=== PATIENT | male | born 1930 | race Two or more races ===

== ENCOUNTER 2017-04-25 12:42 | Inpatient (IN) | payer MEDICARE ==
[~2017-04-25] VITALS: Ht 180.3 cm; Wt 74.8 kg
--- NOTE | 2017-04-25 14:58 | NUR ---
GPS RN ADMITTING NOTE: PATIENT 87 Y/O MALE WITH HX BPH BOUGHT FROM [facility] ON 5150 HOLD FOR GD PE HOLD PT RESIDENT AT [facility] HE LEFT BECAUSE HE HATE IT,MT STATED THAT PRESIDENT SINCERE PHONE HIM AND ASKED HIM TO FLY TO [facility]. ADMITTED TO [facility] GPS UPONE F/F EVALUATION PATIENT DELUSIONAL APPEAR DISHEVELED UNKEPT,DISORGANIZED A/O X2 COOPERATIVE, DR GREENBERG SEEN AND EXAMINE PT WITH STANDING ORDERS, BELONGING AND VALUABLES CHECKED AND VALUABLES PLACED IN THE SAFE,WILL CONTINUE MONITORING FOR SAFETY AND BEHAVIOR Q 15 MIN.
[2017-04-25] MEDS ORDERED: NITR0.4T6 SL (15:03)
[2017-04-25] MEDS ORDERED: FINA5TAB3 PO (15:03)
[2017-04-25] MEDS ORDERED: ASPI81TA2 PO (15:03)
[2017-04-25] MEDS ORDERED: ALFU10TA PO (15:03)
[2017-04-25 16:00] VITALS: BP 152/66
[2017-04-25 16:05] VITALS: BP 152/66
[2017-04-25 20:42] VITALS: BP 166/84
--- NOTE | 2017-04-26 00:20 | NUR ---
GPS RN NOTE: PATIENT WOKE WITH CONFUSION, LOUD AND AGITATION. REDIRECTED THE PATIENT. PATIENT WENT BACK TO SLEEP. WILL CONTINUE TO MONITOR [id number] FOR SAFETY
--- NOTE | 2017-04-26 00:45 | NUR ---
GPS RN NOTE: PATIENT UNDRESSED HIMSELF WHILE PLAYING HIS SEXUAL ORGAN. PRIVACY GIVEN. WILL CONTINUE TO MONITOR [id number] FOR SAFETY
--- NOTE | 2017-04-26 01:00 | NUR ---
GPS RN NOTE: PATIENT APPEARED CALM, QUIET, UNPREDICTABLE, EASILY AGITATED. NO SOB, NO ACUTE DISTRESS, BREATHING EVEN AND UNLABORED, NO S/S OF PAIN AND DISCOMFORT, WILL CONTINUE TO MONITOR [id number] FOR SAFETY
[2017-04-26 08:00] VITALS: BP 156/93
[2017-04-26 12:29] LABS: ALANINE AMINOTRANSFERASE 22 U/L (12-78); ALBUMIN 2.7 g/dL (3.4-5.0); ALKALINE PHOSPHATASE 87 U/L (46-116); ASPARTATE AMINOTRANSFERASE 16 U/L (15-37); BILIRUBIN,TOTAL 0.5 mg/dL (0.2-1.0); CALCIUM, SERUM 7.9 mg/dL (8.5-10.1); CARBON DIOXIDE 30 mmol/L (21-32); CHLORIDE 108 mmol/L (98-107); CREATININE 0.8 mg/dL (0.6-1.3); GLUCOSE 97 mg/dL (74-106); POTASSIUM 3.9 mmol/L (3.5-5.1); SODIUM SERUM 144 mmol/L (136-145); TOTAL PROTEIN, SERUM 5.7 g/dL (6.4-8.2); UREA NITROGEN, BLOOD 19 mg/dL (7-18)
[2017-04-26 16:00] VITALS: BP 156/83
--- NOTE | 2017-04-26 17:17 | NUR ---
[id number]: NOTIFIED PERSONNEL RESEARCH SCIENTIST VANGIE BROWN ABOUT LAB RESULTS ON 04/26/17: EGCZPILL=445, BUN= 19, CALCIUM= 79, TOTAL PROTEIN= 5.7, ALBUMIN=2.7. PERSONNEL RESEARCH SCIENTIST VANGIE BROWN ORDERED BOOST VANILLA BID.
[2017-04-26 20:13] VITALS: BP 155/91
[2017-04-27 08:16] VITALS: BP 133/72
[2017-04-27 16:10] VITALS: BP 138/73
--- NOTE | 2017-04-27 16:41 | NUR ---
Discharge Note: Per patient, he resides at a nursing home facility [address] [address]. No emergency contact name was provided. Patient may need placement. transit worker will help form a safe and proper discharge.
[2017-04-27 20:36] VITALS: BP 129/77
[2017-04-28 08:00] VITALS: BP 154/81
[2017-04-28 16:00] VITALS: BP 141/70
--- NOTE | 2017-04-28 19:41 | NUR ---
GPS/RN NOTE: PATIENT LYING IN BED, NO APPARENT DISTRESS NOTED. CALM, QUIET, COOPERATIVE.
[2017-04-28 20:00] VITALS: BP 131/79
--- NOTE | 2017-04-29 02:44 | NUR ---
GPS/RN NOTE: PATIENT AWAKE, UNABLE TO SLEEP, TEMAZEPAM 7.5 MG PO GIVEN.
[2017-04-29 08:28] VITALS: BP 151/85
[2017-04-29 16:00] VITALS: BP 139/80
[2017-04-29 20:00] VITALS: BP 149/80
[2017-04-30 08:00] VITALS: BP 143/76
[2017-04-30 08:52] LABS: CHOLESTEROL 133 mg/dL (<200); HDL CHOLESTEROL 42 mg/dL (40-60); LDL 79 mg/dL (0-99); TRIGLYCERIDES 59 mg/dL (30-150)
[2017-04-30 16:09] VITALS: BP 106/60
[2017-04-30 20:00] VITALS: BP 145/83
[2017-05-01 08:00] VITALS: BP 146/78
[2017-05-01 16:00] VITALS: BP 136/76
[2017-05-01 20:11] VITALS: BP 137/69
[2017-05-02 08:00] VITALS: BP 142/59
[2017-05-02 16:00] VITALS: BP 136/60
[2017-05-02 20:03] VITALS: BP 142/87
[2017-05-03 08:00] VITALS: BP 138/91
--- NOTE | 2017-05-03 08:25 | NUR ---
[id number]: GAVE ATIVAN 0.5 MG PO DUE TO SEVERE ANXIETY UPON PT REQUEST AND WILL CONTINUE TO MONITOR FOR EFFECTIVENESS OF MEDICATION
--- NOTE | 2017-05-03 09:56 | NUR ---
[id number]: GAVE TYLENOL 650 MG PO DUE TO GENERALIZED PAIN 01/29 UPON PT REQUEST AND WILL CONTINUE TO MONITOR FOR EFFECTIVENESS OF MEDICATION.
--- NOTE | 2017-05-03 09:57 | NUR ---
[id number]: GAVE TYLENOL 650 MG PO DUE TO GENERALIZED PAIN 5/10 UPON PT REQUEST AND WILL CONTINUE TO MONITOR FOR EFFECTIVENESS OF MEDICATION
--- NOTE | 2017-05-03 15:39 | NUR ---
telephone lineworker spoke to Cindy ([phone]) from [facility]. Cindy stated that patient lives in low income government housing [facility]. Cindy stated that patient has been at risk of losing his housing and but stated that he still has his housing available. telephone lineworker will inform Cindy when patient is discharged back home.
[2017-05-03 16:00] VITALS: BP 147/60
[2017-05-03 19:58] VITALS: BP 151/81
[2017-05-04 08:00] VITALS: BP 144/69
[2017-05-04 16:00] VITALS: BP 141/81
--- NOTE | 2017-05-04 19:30 | NUR ---
GPS RN NOTE, RECEIVED PATIENT AWAKE AND IN BED, NO S/S OR COMPLAINTS OF PAIN AT THIS TIME. PATIENT IS DISPLAYING NO S/S OF APPARENT DISTRESS AT THIS TIME. PATIENT BREATHING IS UNLABORED WITH EQUAL RISE AND FALL OF THE CHEST. PATIENT IS ALERT AND ORIENTED X 3 ON ROOM AIR WITH A SPO2 99%. PATIENT COMPLAINT WITH MEDICATION, ANXIOUS, COOPERATIVE AT TIMES, GUARDED, SUSPICIOUS, AND NEEDS REORIENTATION. PATIENT DENIES SUICIDE AND HOMICIDAL IDEATIONS AT THIS TIME. PATIENT ASSISTED WITH TURNING AND REPOSITIONING Q2HR AND PRN FOR COMFORT AND CIRCULATION. PATIENT HAS NO NEEDS AT THIS TIME. PATIENT EDUCATED ON THE USE OF THE CALL JANSEN. PATIENT BED SIDE RAILS UP X2 FOR SAFETY, BED IS LOCKED AND LOW WILL CONTINUE TO MONITOR AND MAINTAIN SAFETY.
[2017-05-04 20:20] VITALS: BP 151/83
[2017-05-05 08:00] VITALS: BP 139/79
[2017-05-05 16:00] VITALS: BP 131/71
[2017-05-05 20:00] VITALS: BP 142/81
[2017-05-06 06:36] LABS: CALCIUM, SERUM 7.9 mg/dL (8.5-10.1); CARBON DIOXIDE 28 mmol/L (21-32); CHLORIDE 107 mmol/L (98-107); CREATININE 0.8 mg/dL (0.6-1.3); GLUCOSE 89 mg/dL (74-106); SODIUM SERUM 141 mmol/L (136-145); UREA NITROGEN, BLOOD 25 mg/dL (7-18)
[2017-05-06 07:15] LABS: BASOPHILS % (AUTO) 0.2 % (0.0-2.0); EOSINOPHILS # (AUTO) 0.5 /CMM (0.0-0.7); EOSINOPHILS % (AUTO) 6.7 % (0.0-6.0); HEMATOCRIT 36 % (39-51); HEMOGLOBIN 11.9 g/dL (13.5-17.5); LYMPHOCYTES # (AUTO) 1.1 /CMM (0.8-4.8); LYMPHOCYTES % (AUTO) 15.8 % (20.0-44.0); MEAN CORPUSCULAR HEMOGLOBIN 29 PG (26.0-33.0); MEAN CORPUSCULAR HGB CONC 33 g/dl (31.0-36.0); MEAN CORPUSCULAR VOLUME 86 fL (80-96); MONOCYTES # (AUTO) 0.7 /CMM (0.1-1.30); NEUTROPHILS # (AUTO) 4.7 /CMM (1.8-8.9); NEUTROPHILS % (AUTO) 67.3 % (43.0-81.0); PLATELET COUNT (AUTO) 177 /CMM (150-450); RDW COEFFICIENT OF VARIATION 14.1 (11.5-15.0); RED BLOOD CELL COUNT(AUTO) 4.14 MIL/uL (4.5-6.0); WHITE BLOOD COUNT (AUTO) 7.1 K/uL (4.3-11.0)
[2017-05-06 08:00] VITALS: BP 138/84
[2017-05-06 16:00] VITALS: BP 137/82
[2017-05-06 20:00] VITALS: BP 156/83
[2017-05-07 07:19] LABS: BASOPHILS % (AUTO) 0.4 % (0.0-2.0); EOSINOPHILS # (AUTO) 0.5 /CMM (0.0-0.7); EOSINOPHILS % (AUTO) 7.2 % (0.0-6.0); HEMATOCRIT 37 % (39-51); HEMOGLOBIN 12.2 g/dL (13.5-17.5); LYMPHOCYTES # (AUTO) 1.3 /CMM (0.8-4.8); LYMPHOCYTES % (AUTO) 19.8 % (20.0-44.0); MEAN CORPUSCULAR HEMOGLOBIN 28 PG (26.0-33.0); MEAN CORPUSCULAR HGB CONC 33 g/dl (31.0-36.0); MEAN CORPUSCULAR VOLUME 87 fL (80-96); MONOCYTES # (AUTO) 0.7 /CMM (0.1-1.30); MONOCYTES % (AUTO) 11.8 % (2.0-12.0); NEUTROPHILS # (AUTO) 3.9 /CMM (1.8-8.9); NEUTROPHILS % (AUTO) 60.8 % (43.0-81.0); PLATELET COUNT (AUTO) 177 /CMM (150-450); RDW COEFFICIENT OF VARIATION 14.4 (11.5-15.0); RED BLOOD CELL COUNT(AUTO) 4.31 MIL/uL (4.5-6.0); WHITE BLOOD COUNT (AUTO) 6.4 K/uL (4.3-11.0)
[2017-05-07 07:20] LABS: VALPROIC ACID 51 ug/mL (50-100)
[2017-05-07 07:31] LABS: ALANINE AMINOTRANSFERASE 16 U/L (12-78); ALBUMIN 2.7 g/dL (3.4-5.0); ALKALINE PHOSPHATASE 82 U/L (46-116); ASPARTATE AMINOTRANSFERASE 13 U/L (15-37); BILIRUBIN,TOTAL 0.4 mg/dL (0.2-1.0); CALCIUM, SERUM 7.9 mg/dL (8.5-10.1); CARBON DIOXIDE 29 mmol/L (21-32); CHLORIDE 108 mmol/L (98-107); CREATININE 0.8 mg/dL (0.6-1.3); GLUCOSE 84 mg/dL (74-106); POTASSIUM 4.3 mmol/L (3.5-5.1); SODIUM SERUM 143 mmol/L (136-145); TOTAL PROTEIN, SERUM 5.8 g/dL (6.4-8.2); UREA NITROGEN, BLOOD 22 mg/dL (7-18)
[2017-05-07 08:00] VITALS: BP 142/85
[2017-05-07 15:47] VITALS: BP 130/78
[2017-05-07 20:00] VITALS: BP 133/79
[2017-05-08 08:11] VITALS: BP 153/83
[2017-05-08 16:00] VITALS: BP 138/70
[2017-05-08 19:36] VITALS: BP 156/69
[2017-05-09 08:00] VITALS: BP 143/64
--- NOTE | 2017-05-09 13:45 | NUR ---
waterside worker faxed initial review packet to [facility] [id number] [facility] [place] [address] ( / ). waterside worker will follow-up.
[2017-05-09 16:00] VITALS: BP 147/88
[2017-05-09 20:09] VITALS: BP 148/70
[2017-05-10 07:15] LABS: BASOPHILS % (AUTO) 0.3 % (0.0-2.0); EOSINOPHILS # (AUTO) 0.4 /CMM (0.0-0.7); HEMATOCRIT 38 % (39-51); HEMOGLOBIN 12.7 g/dL (13.5-17.5); LYMPHOCYTES # (AUTO) 1.3 /CMM (0.8-4.8); LYMPHOCYTES % (AUTO) 18.4 % (20.0-44.0); MEAN CORPUSCULAR HEMOGLOBIN 29 PG (26.0-33.0); MEAN CORPUSCULAR HGB CONC 33 g/dl (31.0-36.0); MEAN CORPUSCULAR VOLUME 86 fL (80-96); MONOCYTES # (AUTO) 0.7 /CMM (0.1-1.30); MONOCYTES % (AUTO) 10.3 % (2.0-12.0); NEUTROPHILS # (AUTO) 4.7 /CMM (1.8-8.9); PLATELET COUNT (AUTO) 178 /CMM (150-450); RED BLOOD CELL COUNT(AUTO) 4.44 MIL/uL (4.5-6.0); WHITE BLOOD COUNT (AUTO) 7.1 K/uL (4.3-11.0)
[2017-05-10 07:42] LABS: VALPROIC ACID 41 ug/mL (50-100)
[2017-05-10 07:55] LABS: ALANINE AMINOTRANSFERASE 14 U/L (12-78); ALBUMIN 2.8 g/dL (3.4-5.0); ALKALINE PHOSPHATASE 86 U/L (46-116); ASPARTATE AMINOTRANSFERASE 16 U/L (15-37); BILIRUBIN,TOTAL 0.4 mg/dL (0.2-1.0); CALCIUM, SERUM 8.3 mg/dL (8.5-10.1); CARBON DIOXIDE 27 mmol/L (21-32); CHLORIDE 106 mmol/L (98-107); CREATININE 0.8 mg/dL (0.6-1.3); GLUCOSE 85 mg/dL (74-106); POTASSIUM 4.3 mmol/L (3.5-5.1); SODIUM SERUM 141 mmol/L (136-145); TOTAL PROTEIN, SERUM 5.9 g/dL (6.4-8.2); UREA NITROGEN, BLOOD 21 mg/dL (7-18)
[2017-05-10 08:00] VITALS: BP 143/80
--- NOTE | 2017-05-10 13:46 | NUR ---
Per Antoine, at the facility, [address] [place] [address] ( / ) has accepted the patient. brewery cellar worker will follow-up.
[2017-05-10 16:08] VITALS: BP 140/76
--- NOTE | 2017-05-10 16:10 | NUR ---
turn out worker attempted to contact Cindy ([phone]) from [facility] following patient's case, to inform her that patient is being discharged to [address] [address] ( / ). However, Cindy was unavailable, outreach and education social worker left Cindy a detailed message with her contact information. turn out worker will follow-up.
[2017-05-10 20:12] VITALS: BP 150/87
[2017-05-11 08:01] VITALS: BP 143/89
--- NOTE | 2017-05-11 12:30 | NUR ---
GPS TUBE MAKER NOTE: PATIENT DISCHARGE TO [place] [id number] [place] [address] ( / ).IN STABLE CONDITION NO S/S DISTRESS NOTED PATIENT COMPLIANT WITH MEDICATIONS DENIES SI/HI , VSS STABLE , DR YAN NOTIFIED WITH DC ORDERS, ALL BELONGINGS AND CONTRABAND CHECKED , PT REFUSED SKIN ASSESSMENT. REPORT GIVEN TO RN IN THE SNF
--- NOTE | 2017-05-11 15:37 | NUR ---
Discharge Note: Patient was discharged to [facility] [address] [facility] [place] [address] ( / ). via med response. Patient did not have family to notify. Patient's mood and affect were appropriate upon discharge. Patient denied suicidal and homicidal ideations. Patient will follow-up with Dr. Frias at the facility. STEPHANIE informed Cindy ([phone]) APS social worker psychiatric from [facility] of patient's discharge. Facilitated info to IDT team who are in agreement with discharge arrangement. The multidisciplinary exitcare form was done, printed, signed, and given to the patient.
== END 2017-05-11 12:15 | DRG 885 ==
LOC: GPS 14:30
PROVIDERS: ADMIT Psychiatry & Neurology Psychosomatic Medicine; ATTEND Psychiatry & Neurology Psychosomatic Medicine
DX: F29 Unspecified psychosis not due to a substance or known physiological condition (principal); F01.50 Vascular dementia, unspecified severity, without behavioral disturbance, psychotic disturbance, mood disturbance, and anxiety; N17.0 Acute kidney failure with tubular necrosis; E44.0 Moderate protein-calorie malnutrition; D64.9 Anemia, unspecified; I10 Essential (primary) hypertension; N40.0 Benign prostatic hyperplasia without lower urinary tract symptoms; Z86.73 Personal history of transient ischemic attack (TIA), and cerebral infarction without residual deficits; K59.00 Constipation, unspecified; Z73.6 Limitation of activities due to disability; G43.909 Migraine, unspecified, not intractable, without status migrainosus; D63.8 Anemia in other chronic diseases classified elsewhere
CPT/HCPCS: 36415; 80048-TC; 80053-TC; 80061-TC; 80164-TC; 82962-TC; 85025-TC; 87081-TC; Z7610

== ENCOUNTER 2017-06-18 16:45 | Emergency (ER) | payer MEDICARE ==
[~2017-06-18] VITALS: Ht 167.6 cm; Wt 68.0 kg
[~2017-06-18 16:45] MED LIST: ALFU10TA PO; ASPI81TA2 PO; FINA5TAB3 PO; NITR0.4T6 SL
--- NOTE | 2017-06-18 16:54 | NUR ---
PT BIBRA TO ER BED 10. PER REPORT, POSSIBLE FALL FROM BED AND C/O LOWER BACK AND L HIP PAIN. UNWITNESSED. PER PARAMEDICS, PT WAS AMBULATORY AT THE SCENE. PLACED ON MONITOR. AWAITING MD MORE.
--- NOTE | 2017-06-18 17:03 | NUR ---
DR SÁNCHEZ AT BEDSIDE FOR EVAL.
--- NOTE | 2017-06-18 17:15 | NUR ---
IV INSERTED LAC 18G. BLOOD DRAWN AND SENT TO LAB.
[2017-06-18] MEDS ORDERED: ONDANSETRON HCL/PF 4 MG/2 ML VIAL ONE (17:20)
[2017-06-18] MEDS ORDERED: HYDROMORPHONE 1 MG/1 ML DISP.SYRIN ONE (17:20)
[2017-06-18 17:26] LABS: BASOPHILS % (AUTO) 0.4 % (0.0-2.0); EOSINOPHILS # (AUTO) 0.2 /CMM (0.0-0.7); HEMATOCRIT 34 % (39-51); HEMOGLOBIN 11.4 g/dL (13.5-17.5); LYMPHOCYTES # (AUTO) 1.2 /CMM (0.8-4.8); LYMPHOCYTES % (AUTO) 17.4 % (20.0-44.0); MEAN CORPUSCULAR HEMOGLOBIN 29 PG (26.0-33.0); MEAN CORPUSCULAR HGB CONC 34 g/dl (31.0-36.0); MEAN CORPUSCULAR VOLUME 85 fL (80-96); MONOCYTES # (AUTO) 0.9 /CMM (0.1-1.30); MONOCYTES % (AUTO) 12.9 % (2.0-12.0); NEUTROPHILS # (AUTO) 4.5 /CMM (1.8-8.9); NEUTROPHILS % (AUTO) 66.3 % (43.0-81.0); PLATELET COUNT (AUTO) 130 /CMM (150-450); RDW COEFFICIENT OF VARIATION 15.3 (11.5-15.0); RED BLOOD CELL COUNT(AUTO) 4.01 MIL/uL (4.5-6.0); WHITE BLOOD COUNT (AUTO) 6.8 K/uL (4.3-11.0)
[2017-06-18 17:29] LABS: CALCIUM, SERUM 7.7 mg/dL (8.5-10.1); CARBON DIOXIDE 30 mmol/L (21-32); CHLORIDE 106 mmol/L (98-107); CREATININE 0.9 mg/dL (0.6-1.3); GLUCOSE 101 mg/dL (74-106); POTASSIUM 4.1 mmol/L (3.5-5.1); SODIUM SERUM 139 mmol/L (136-145); UREA NITROGEN, BLOOD 27 mg/dL (7-18)
[2017-06-18] MEDS ORDERED: HYDROMORPHONE 1 MG/1 ML DISP.SYRIN IV ONE (17:30)
[2017-06-18] MEDS ORDERED: ONDANSETRON HCL/PF - ER 4 MG/2 ML VIAL IV ONE (17:30)
[2017-06-18 17:38] LABS: INR 1.2 (0.87-1.13); PROTHROMBIN TIME 12.5 SECS (9.5-12.7)
--- NOTE | 2017-06-18 17:56 | NUR ---
PT TO RADIOLOGY FOR L HIP CT SCAN [facility]IA [facility].
[2017-06-18] MEDS ORDERED: LORA0.5T PO (18:03)
[2017-06-18] MEDS ORDERED: DOCU-25 PO (18:03)
[2017-06-18] MEDS ORDERED: MAG30ORA PO (18:03)
[2017-06-18] MEDS ORDERED: FURO-145 PO (18:03)
[2017-06-18] MEDS ORDERED: FAMO20TA8 PO (18:03)
[2017-06-18] MEDS ORDERED: AMIN30LI4 PO (18:03)
[2017-06-18] MEDS ORDERED: TERA5CAP4 PO (18:03)
[2017-06-18] MEDS ORDERED: SENN-18 PO (18:03)
[2017-06-18] MEDS ORDERED: DIVA500T2 PO (18:03)
[2017-06-18] MEDS ORDERED: CALC-108 PO (18:03)
[2017-06-18] MEDS ORDERED: QUET25TA PO ×2 (18:07)
[2017-06-18] MEDS ORDERED: ACET-868 PO (18:07)
[2017-06-18] MEDS ORDERED: MAGN400O6 PO (18:07)
[2017-06-18] MEDS ORDERED: TEMA7.5C12 PO (18:07)
--- NOTE | 2017-06-18 21:10 | NUR ---
CALLED [facility] FOR TRANSPORT BACK TO [facility], ETA 30 MIN, TRIP #[id number]
--- NOTE | 2017-06-18 21:39 | NUR ---
ASSUMED D/C CARE ONLY ON BEHALF OF PRIMARY NURSE KATINA. REPORT GIVEN TO EMT STAFF. Patient discharged to home in stable condition. Written and verbal after care instructions given. Patient verbalizes understanding of instruction. IV removed. Catheter intact and site benign. Pressure and 4x4 applied to site. No bleeding noted.
[2017-06-18 21:41] VITALS: BP 147/79
[2017-07-15] MEDS ORDERED: NAPR500T PO (14:15)
== END 2017-06-18 21:42 | disposition home or self-care (01) ==
LOC: ER 16:46
DX: M25.552 Pain in left hip (principal); F03.90 Unspecified dementia, unspecified severity, without behavioral disturbance, psychotic disturbance, mood disturbance, and anxiety; I10 Essential (primary) hypertension; R79.1 Abnormal coagulation profile; Z79.82 Long term (current) use of aspirin; W06.XXXA Fall from bed, initial encounter; Y93.89 Activity, other specified; Y92.89 Other specified places as the place of occurrence of the external cause; Y99.9 Unspecified external cause status
CPT/HCPCS: 36415; 71010; 73503; 73700 ×2; 80048; 85025; 85730; 93005; 96374; 96375; 99285; A4606; J1170; J2405 ×2; 73502; Z7610

== ENCOUNTER 2017-07-15 13:14 | Inpatient (IN) | payer MEDICARE, MEDICAID ==
[2017-07-15] VITALS (23 sets, daily range): BP systolic 70–137; BP diastolic 46–79
[~2017-07-15] VITALS: Ht 172.7 cm; Wt 69.4 kg
[~2017-07-15 13:14] MED LIST changes: +ACET-868 PO; -ALFU10TA PO; +AMIN30LI4 PO; +ASPI-1169 PO; -ASPI81TA2 PO; +CALC-261 PO; +DIVA500T2 PO; +DOCU-141 PO; +FAMO20TA8 PO; +FURO-145 PO; +LORA0.5T PO; +MAG30ORA PO; +MAGN400O6 PO; +NITR0.4T48 SL; -NITR0.4T6 SL; +QUET25TA PO; +SENN-18 PO; +TEMA7.5C12 PO; +TERA5CAP4 PO
--- NOTE | 2017-07-15 13:20 | NUR ---
BBRA 78 FROM [facility] FOR SOB SATING 80% ON RA. MORE ALTERED THAN BASELINE DEMENTIA BS IN FIELD 174. A/OX 1. BREATHING TACHYPNIC, PLACED ON 5L VIA NC, SATURATION INCREASED TO 93%. VITALS STABLE. SAFETY AND COMFORT MEASURES IN PLACE. AWAITING MD ORDERS.
--- NOTE | 2017-07-15 13:30 | NUR ---
BUSINESS TRANSFORMATION ANALYST AT BEDSIDE FOR BLOOD DRAW.
--- NOTE | 2017-07-15 13:42 | NUR ---
DIAMOND EXPERT AT BEDSIDE.
--- NOTE | 2017-07-15 13:45 | NUR ---
PATIENT PLACED ON NON REBREATHER MASK, SATURATION DROPPING TO 87% ON 5L OXYGEN. O2 SATURATION 97% ON NON REBREATHER, WILL CONTINUE TO MONITOR.
[2017-07-15 13:57] LABS: BASOPHILS % (AUTO) 0.1 % (0.0-2.0); EOSINOPHILS % (AUTO) 0.1 % (0.0-6.0); HEMATOCRIT 34 % (39-51); LYMPHOCYTES # (AUTO) 0.8 /CMM (0.8-4.8); LYMPHOCYTES % (AUTO) 7.3 % (20.0-44.0); MEAN CORPUSCULAR HEMOGLOBIN 28 PG (26.0-33.0); MEAN CORPUSCULAR HGB CONC 32 g/dl (31.0-36.0); MEAN CORPUSCULAR VOLUME 88 fL (80-96); MONOCYTES % (AUTO) 8.7 % (2.0-12.0); NEUTROPHILS # (AUTO) 9.5 /CMM (1.8-8.9); NEUTROPHILS % (AUTO) 83.8 % (43.0-81.0); PLATELET COUNT (AUTO) 116 /CMM (150-450); RDW COEFFICIENT OF VARIATION 16.3 (11.5-15.0); RED BLOOD CELL COUNT(AUTO) 3.88 MIL/uL (4.5-6.0); WHITE BLOOD COUNT (AUTO) 11.4 K/uL (4.3-11.0)
[2017-07-15] MEDS ORDERED: IV NS 0.9% 500 ML BAG IV ONE (14:00)
[2017-07-15 14:11] LABS: CALCIUM, SERUM 8.9 mg/dL (8.5-10.1); CARBON DIOXIDE 27 mmol/L (21-32); CHLORIDE 106 mmol/L (98-107); CREATININE 1.3 mg/dL (0.6-1.3); GLUCOSE 128 mg/dL (74-106); POTASSIUM 3.6 mmol/L (3.5-5.1); SODIUM SERUM 144 mmol/L (136-145); UREA NITROGEN, BLOOD 50 mg/dL (7-18)
[2017-07-15 14:14] LABS: ABG BASE EXCESS 0.5 mmol/L; ABG OXYGEN SATURATION 98.3 % (92.0-98.5); ABG PH 7.464 (7.350-7.450); ABG PO2 139.1 mmHg (75.0-100.0); AaDO2 395.6 mmHg; COHb 0.5 % (0.5-1.5); MetHb 0.6 % (0.0-1.5); O2Hb 97.2 % (94.0-97.0); SITE, ABG Right Radial; VENT MODE, BG NON-REBREATHER MASK
[2017-07-15] MEDS ORDERED: CALC500T52 PO (14:15)
[2017-07-15] MEDS ORDERED: NAPR-1164 PO (14:15)
[2017-07-15] MEDS ORDERED: TRAM50TA2 PO (14:15)
[2017-07-15 14:18] LABS: INR 1.32 (0.87-1.13); PROTHROMBIN TIME 13.8 SECS (9.5-12.7)
[2017-07-15 14:23] LABS: ALANINE AMINOTRANSFERASE 17 U/L (12-78); ALBUMIN 2.3 g/dL (3.4-5.0); ALKALINE PHOSPHATASE 81 U/L (46-116); ASPARTATE AMINOTRANSFERASE 21 U/L (15-37); B-TYPE NATRIURETIC PEPTIDE 6167 PG/ML (0-125); BILIRUBIN,DIRECT 0.4 mg/dL (0.0-0.2); BILIRUBIN,TOTAL 0.8 mg/dL (0.2-1.0); TOTAL PROTEIN, SERUM 6.5 g/dL (6.4-8.2)
[2017-07-15 14:25] LABS: TROPONIN I 1.546 ng/mL (0.00-0.056)
[2017-07-15] MEDS ORDERED: IV NS 0.9% 1,000 ML BAG IV ONE (14:30)
[2017-07-15] MEDS ORDERED: PIPERACILLIN /TAZOBACTAM 3.375 G in IV D5W 50 ML IV ONE (14:30)
[2017-07-15] MEDS ORDERED: VANCOMYCIN 1 GM in IV D5W 250 ML IV ONE ×2 (14:30→15:30)
--- NOTE | 2017-07-15 14:46 | NUR ---
PT UNABLE TO STOP MOVING & COMBATIVE. DR. VINCENT IS AWARE.
--- NOTE | 2017-07-15 14:54 | NUR ---
PER DR. VINCENT, ORDER 1700ML MORE NS, IN ADDITION TO 500ML ALREADY RECEIVED. DO NOT GIVE 2200ML INITALLY ORDERED.
[2017-07-15 14:57] LABS: APPEARANCE,URINE Slightly Cloudy (CLEAR); BILIRUBIN,URINE SMALL (NEGATIVE); BLOOD, URINE Moderate Ery/uL (NEGATIVE); COLOR,URINE Amber (YELLOW); KETONES,URINE Trace (NEGATIVE); LEUKOCYTE ESTERASE ,URINE Negative (NEGATIVE); NITRITE, URINE Negative (NEGATIVE); PH,URINE 5.5 (5.0-8.0); PROTEIN,URINE 30 mg/dl (NEGATIVE); UGLUCOSE Negative (NEGATIVE)
[2017-07-15] MEDS ORDERED: ASPIRIN 325 MG TABLET PO ONE (15:00)
--- NOTE | 2017-07-15 15:11 | NUR ---
DR ADONIS JOHNSON PAGED FOR DR VINCENT
--- NOTE | 2017-07-15 15:15 | NUR ---
ICU/RN: DR. IRBY AT BEDSIDE. BP LOW. 500 ML BOLUS GIVEN. WILL START LEVO IF BP REMAINS TO BE <90. ORDERS FOR CENTRAL LINE RECEIVED, NO FAMILY, EMERGENCY CONSENT SIGNED. ER MD WILL BE UP TO INSERT TIME.
[2017-07-15] MEDS ORDERED: ASPIRIN 300 MG/SUPP.RECT RC ONE ×2 (15:17→16:00)
--- NOTE | 2017-07-15 15:25 | NUR ---
PER DR. VINCENT, GIVE ASPIRIN 300MG RECTAL SUPP INSTEAD OF 325 MG TAB ORALLY.
--- NOTE | 2017-07-15 15:29 | NUR ---
[facility] CALLED, SPOKE WITH FLORI GLASS, IN CHARGE OF PATIENT, FULL CODE ACCORDING TO FLORI GLASS
[2017-07-15] MEDS ORDERED: MEROPENEM 1 G in IV NS 0.9% 100 ML IV SCH (15:30)
[2017-07-15] MEDS ORDERED: ACETAMINOPHEN 650 MG/SUPP.RECT RC PRN (15:30)
[2017-07-15] MEDS ORDERED: ZOLPIDEM TARTRATE 5 MG TABLET PO PRN (15:30)
[2017-07-15] MEDS ORDERED: ONDANSETRON HCL/PF 4 MG/2 ML VIAL IVP PRN (15:30)
--- NOTE | 2017-07-15 15:35 | NUR ---
RT AT BEDSIDE FOR BIPAP, ATTEMPTED TO CONNECT, PATIENT NOT TOLERATING. MD INFORMED.
[2017-07-15] MEDS ORDERED: PROPOFOL 100 ML IV ONE (15:37)
--- NOTE | 2017-07-15 15:40 | NUR ---
AT BEDSIDE FOR INTUBATION.
--- NOTE | 2017-07-15 15:44 | NUR ---
PATIENT INTUBATED, BREATHING LABORED, USED OF ACCESSORY MUSCLES. MD AT BEDSIDE. ETOMIDATE 20 / SUCC 120 GIVEN PER MD ORDERS. 7.5 ET TUBE, 24 CM AT LIPLINE POSITIVE CO2 COLOR CHANGE.
[2017-07-15 15:45] LABS: BACTERIA,URINE Moderate /HPF (None Seen); SQUAMOUS EPITHELIAL CELL,UR Moderate /HPF (None Seen); WBC,URINE 0-2 /HPF (0-3)
[2017-07-15] MEDS ORDERED: FEE PK DOSING 1 MIN EA MC ONE (15:49)
[2017-07-15] MEDS ORDERED: SUCCINYLCHOLINE CHLORIDE 20 MG/ML VIAL IV ONE ×2 (16:00→16:21)
[2017-07-15] MEDS ORDERED: ETOMIDATE 2 MG/ML VIAL IV ONE ×2 (16:00→16:21)
[2017-07-15] MEDS ORDERED: PROPOFOL 100 ML IV PRN (16:00)
--- NOTE | 2017-07-15 16:05 | NUR ---
TRANSFERRED TO ICU [address] DONE PER DR VINCENT'S ORDER MONITORED WITH IVETT GLASS AND EMT.
--- NOTE | 2017-07-15 16:23 | NUR ---
RT NOTE: LATE ENTRY-ATTEMPTED TO PLACE PATIENT ON BIPAP DUE TO INCREASING WOB BUT WAS COMBATIVE AND DID NOT TOLERATE. PLACED BACK ON NON-REBREATHER WITH WL31=307%. ASSISTED WITH INTUBATING PATIENT. USED A 7.5 ETT THAT WAS SECURED AT 24 CM MID LIP LINE(ANCHOR FAST IN PLACE). BILATERAL B/S NOTED. PATIENT PLACED ON VENT PER MD ORDER. ALARMS SET AND AUDIBLE. SUCTIONED COPIOUS AMOUNT OF THICK [place] SECRETIONS. PATIENT TRANSPORTED TO CT THEN ICU. VENT PLUGGED INTO RED OUTLET. AMBU BAG AT [facility].
--- NOTE | 2017-07-15 16:30 | NUR ---
ICU/RN: PT TRANSFERRED FROM ER TO ROOM 252. PT INTUBATED, ETT 7.5, 24 CM AT THE LIP. ON VENT SETTINGS ORDERED BY MD, NO ACUTE DISTRESS NOTED AT THIS TIME. PT SEDATED ON 30 MCG OF DIPRIVAN, STILL AGITATED AND FIGHTING VENT. WILL TITRATE PER PROTOCOL. PT ON TELE, SINUS TACHYCARDIA. PIV PATENT AND INTACT, NO S/S OF INFECTION OR INFILTRATION NOTED. HEAD CT DONE, RESULTS PENDING. ALL NEEDS WILL BE MET, SAFETY MEASURES TAKEN, BED IN LOW POSITION, SIDE RIALS UP, CALL LIGHT WITHIN REACH. PT FROM [facility], NO FAMILY, NO CONSERVATOR. FULL CODE. CARLTON PLACED PER MD. SOFT BILATERAL WRIST RESTRAINTS FOR SAFETY. ORDERS PLACED. ALL NEEDS MET, SAFETY MEASURES TAKEN, BED IN LOW POSITION, SIDE RAILS UP, CALL LIGHT WITHIN REACH.
[2017-07-15] MEDS: PANTOPRAZOLE 40 MG VIAL IV SCH (17:04)
[2017-07-15] MEDS: IV NS 0.9% 1,000 ML IV PRN (17:05)
[2017-07-15] MEDS: DEXAMETHASONE SOD PHOSPHATE 4 MG/ML VIAL IV SCH (17:05)
--- NOTE | 2017-07-15 17:20 | NUR ---
RT PT RECEIVED ORALLY INTUBATED WITH A 7.5 ETT SECURED AT 24CM AT THE LIP LINE. PT IS CURRENTLY SEDATED AT THIS TIME BUT RESPONDS TO STIMULI. VENT ALARMS ARE SET AND AUDIBLE WITH BVM BY BEDSIDE. ROLL FORMER CUFF PRESSURE NOTED. VENT IS PLUGGED INTO RED OUTLET. SX SMALL THICK WHITE/CLEAR SECRETIONS. NO RESPIRATORY DISTRESS NOTED AT THIS TIME, WILL CONTINUE TO MONITOR. Addendum: 07/15/17 at 1755 by JOSE CARLOS LAUREN RT Amended: Links added.
[2017-07-15] MEDS ORDERED: IV NS 0.9% 500 ML IV ONE (17:30)
[2017-07-15] MEDS ORDERED: NOREPINEPHRINE 8 MG in IV D5W 500 ML IV PRN (17:30)
[2017-07-15 17:39] LABS: ABG BASE EXCESS -3.7 mmol/L; ABG PCO2 37.3 mmHg (35.0-45.0); ABG PH 7.371 (7.350-7.450); ABG PO2 146.2 mmHg (75.0-100.0); AaDO2 312.8 mmHg; COHb 0.3 % (0.5-1.5); MetHb 0.8 % (0.0-1.5); O2Hb 96.9 % (94.0-97.0); PEEP,BG 5 cm H2O; SITE, ABG Left Radial; VT, ABG 500 mL
[2017-07-15] MEDS: MEROPENEM 1 G in IV NS 0.9% 100 ML IV SCH (18:42)
--- NOTE | 2017-07-15 19:30 | NUR ---
ICU/RN ENDING NOTES,AM REPORT ENDORSED TO NIGHT NURSE FOR CONTINUATION OF CARE. ALL NEEDS MET, SAFETY MEASURES TAKEN. PT BP STABLE. ON VENT SETTINGS ORDERED BY MD, NO ACUTE DISTRESS NOTED. SINUS ON TELE. PT BATHED, TURNED AND REPOSITIONED. BILATERAL SOFT RESTRAINTS IN PLACE. WILL ENDORSE FOR GABRIEL
[2017-07-15] MEDS: PROPOFOL 100 ML IV PRN (20:10)
--- NOTE | 2017-07-15 20:10 | NUR ---
INTELLIGENCE SENIOR SERGEANT DF PT HYPOTENSIVE AT 83/54. PER REPORT/EMAR PT RECEIVED IV BOLUS UPON ADMISSION AND IN ER. PT HAS STANDBY ORDER FOR LEVOPHED GTT. DIPRIVAN GTT AT 40MCG DECREASED TO 30 MCG BP OF 92/56. PT SEDATED WITHDRAWS TO TACTILE STIMULI, PUPILS PEARLA SLUGGISH TO LIGHT AT 2-3 MM. PT RECEIVED IN BILATERAL SOFT WRIST RESTRAINTS, PT SELF EXTUBATION RISK. PT WITH RHONCHI/DIMINISHED BREATH SOUNDS THROUGHOUT.PT INTUBATED TODAY AT 7.5/24 A LIP LINE 50% FIO2 WITH 0 PEEP. PT NSR ON MONITOR.EPISODIC HYPOTENSION NOTED.WILL START LEVOPHED FOR SUSTAINED HYPOTENSION.EDEMA NON PITTING NOTED TO BLE. PT NPO. PER REPORT UNABLE TO INSERT OGT/NGT. I WILL ATTEMPT TO INSERT OGT/NGT. VSS.NAD NOTED. PT HAS 2 PIV. PER REPORT PT HAS ORDER FOR CENTRAL LINE/PICC LINE. NO ER MD OR PICC LINE RN AVAILABLE AT THIS TIME FOR LINE INSERTION. 2 PIV INTACT WNL.
--- NOTE | 2017-07-15 22:42 | NUR ---
DIRECTOR OF SPECIAL SERVICES DF PT MAINTAINING SBP ABOVE 90, CURRENT BP OF 129/75.MD AWARE PT NOT ON LEVOPHED GTT AT THIS TIME. LEVOPHED PRN FOR SBP BELOW 90.
[2017-07-16] VITALS (39 sets, daily range): BP systolic 95–136; BP diastolic 57–79
[2017-07-16] MEDS: DEXAMETHASONE SOD PHOSPHATE 4 MG/ML VIAL IV SCH ×5 (00:25→23:13)
[2017-07-16] MEDS: PROPOFOL 100 ML IV PRN ×3 (02:32→22:58)
[2017-07-16] MEDS: MEROPENEM 1 G in IV NS 0.9% 100 ML IV SCH ×2 (04:45→15:46)
[2017-07-16 04:53] LABS: EOSINOPHILS % (AUTO) 0.1 % (0.0-6.0); HEMATOCRIT 31 % (39-51); HEMOGLOBIN 10.2 g/dL (13.5-17.5); LYMPHOCYTES # (AUTO) 0.3 /CMM (0.8-4.8); LYMPHOCYTES % (AUTO) 3.4 % (20.0-44.0); MEAN CORPUSCULAR HEMOGLOBIN 29 PG (26.0-33.0); MEAN CORPUSCULAR HGB CONC 33 g/dl (31.0-36.0); MEAN CORPUSCULAR VOLUME 88 fL (80-96); MONOCYTES # (AUTO) 0.3 /CMM (0.1-1.30); MONOCYTES % (AUTO) 3.9 % (2.0-12.0); NEUTROPHILS # (AUTO) 7.8 /CMM (1.8-8.9); NEUTROPHILS % (AUTO) 92.6 % (43.0-81.0); PLATELET COUNT (AUTO) 87 /CMM (150-450); RDW COEFFICIENT OF VARIATION 16.4 (11.5-15.0); RED BLOOD CELL COUNT(AUTO) 3.54 MIL/uL (4.5-6.0); WHITE BLOOD COUNT (AUTO) 8.4 K/uL (4.3-11.0)
[2017-07-16 05:09] LABS: ALANINE AMINOTRANSFERASE 16 U/L (12-78); ALBUMIN 1.6 g/dL (3.4-5.0); ALKALINE PHOSPHATASE 59 U/L (46-116); ASPARTATE AMINOTRANSFERASE 19 U/L (15-37); BILIRUBIN,TOTAL 0.6 mg/dL (0.2-1.0); CALCIUM, SERUM 7.8 mg/dL (8.5-10.1); CARBON DIOXIDE 26 mmol/L (21-32); CHLORIDE 112 mmol/L (98-107); CREATININE 0.9 mg/dL (0.6-1.3); GLUCOSE 123 mg/dL (74-106); POTASSIUM 3.9 mmol/L (3.5-5.1); SODIUM SERUM 145 mmol/L (136-145); TOTAL PROTEIN, SERUM 5.1 g/dL (6.4-8.2); UREA NITROGEN, BLOOD 43 mg/dL (7-18)
[2017-07-16 05:10] LABS: INR 1.23 (0.87-1.13); PROTHROMBIN TIME 12.8 SECS (9.5-12.7)
[2017-07-16 05:21] LABS: TROPONIN I 0.959 ng/mL (0.00-0.056)
--- NOTE | 2017-07-16 05:26 | NUR ---
RAPID EXTRACTOR OPERATOR DF AM TROPONIN OF 0.959 PER PMD CARDIAC CONSULT ORDERED.
[2017-07-16 05:41] LABS: LYMPHOCYTES % (MANUAL) 6 % (16-48); MONOCYTES % (MANUAL) 4 % (0-11.0); NEUTROPHILS % (MANUAL) 90 (42-76)
[2017-07-16] MEDS: IV NS 0.9% 1,000 ML IV PRN ×2 (07:00→18:37)
--- NOTE | 2017-07-16 07:45 | NUR ---
ICU/RN - Initial Notes Received pt in bed, sedated, orally intubated to mechanical ventilator with settings as ordered. No s/s of pain or discomfort. On tele monitor SB 53. IV patent and intact, with IVF infusing well. Sue catheter intact draining urine to gravity. Safety and comfort measures in place. Will continue to monitor pt closely.
--- NOTE | 2017-07-16 08:00 | NUR ---
ICU/RN - Notes Pt appears to be very sedated with bradycardia. Diprivan titrated down accordingly.
[2017-07-16] MEDS: PANTOPRAZOLE 40 MG VIAL IV SCH (08:46)
[2017-07-16] MEDS ORDERED: VANCOMYCIN 0.75 GM in IV D5W 250 ML IV SCH (09:00)
--- NOTE | 2017-07-16 10:50 | NUR ---
ICU/RN - Notes NG tube to right nare placed by Dr Escobar. Positive auscultated placement.
--- NOTE | 2017-07-16 11:30 | NUR ---
ICU/RN - Sedation Vacation Diprivan titrated down at 0900 to provide sedation vacation. At this time, pt does not open eyes, does not follow commands or move extremities purposefully. Pt calm and no s/s of respiratory at this time. Will continue to monitor.
--- NOTE | 2017-07-16 15:00 | NUR ---
ICU/RN - Notes PICC line inserted by PICC line nurse to right upper arm.
--- NOTE | 2017-07-16 15:15 | NUR ---
ICU/RN - Notes Pt re-started on propofol. Pt unable to follow commands, noted with tachypnea RR 30's, and bucking down ventilator. Will continue to monitor.
--- NOTE | 2017-07-16 15:40 | NUR ---
ICU/RN - Notes Sputum and nasopharynx specimens collected and sent to lab.
--- NOTE | 2017-07-16 20:30 | NUR ---
PT SEDATED WITHDRAWS TO TACTILE STIMULI, PUPILS PEARLA SLUGGISH TO LIGHT AT 2-3 MM. PT RECEIVED IN BILATERAL SOFT WRIST RESTRAINTS, PT SELF EXTUBATION RISK. PT WITH RHONCHI/DIMINISHED BREATH SOUNDS THROUGHOUT.INTUBATED TODAY AT 7.524 A LIP LINE, 50% FIO2 WITH 0 PEEP. PT NSR ON MONITOR.. PT NPO. AWAITING DIETARY CONSULT. DURING CHART REVIEW OBSERVED PULMONARY MD HAS NOT SEEN PT.ORDER PLACED ON 07/16. REORDERED CONSULT, ADVISED MID DEARBORN PULMONARY OF PENDING CONSULT.
[2017-07-16] MEDS: VANCOMYCIN 0.75 GM in IV D5W 250 ML IV SCH (20:34)
[2017-07-16] MEDS: PIPERACILLIN /TAZOBACTAM 3.375 G in IV D5W 50 ML IV SCH (22:27)
[2017-07-17] VITALS (42 sets, daily range): BP systolic 98–172; BP diastolic 55–104
[2017-07-17] MEDS: PIPERACILLIN /TAZOBACTAM 3.375 G in IV D5W 50 ML IV SCH ×4 (03:24→22:02)
[2017-07-17 05:02] LABS: HEMATOCRIT 33 % (39-51); HEMOGLOBIN 10.7 g/dL (13.5-17.5); LYMPHOCYTES # (AUTO) 0.5 /CMM (0.8-4.8); LYMPHOCYTES % (AUTO) 5.4 % (20.0-44.0); MEAN CORPUSCULAR HEMOGLOBIN 28 PG (26.0-33.0); MEAN CORPUSCULAR HGB CONC 32 g/dl (31.0-36.0); MEAN CORPUSCULAR VOLUME 87 fL (80-96); MONOCYTES # (AUTO) 0.2 /CMM (0.1-1.30); MONOCYTES % (AUTO) 1.9 % (2.0-12.0); NEUTROPHILS % (AUTO) 92.7 % (43.0-81.0); PLATELET COUNT (AUTO) 111 /CMM (150-450); RDW COEFFICIENT OF VARIATION 16.3 (11.5-15.0); RED BLOOD CELL COUNT(AUTO) 3.78 MIL/uL (4.5-6.0); WHITE BLOOD COUNT (AUTO) 9.8 K/uL (4.3-11.0)
--- NOTE | 2017-07-17 05:02 | NUR ---
DRYWALL METAL STUD WORKER DF @6424 DURING AM CARE PT AGITATED, MOVING BUE/OBSERVED BITING ETT, BREATHING PATTERN OVERRIDING VENTILATOR RATE, PT WITH ACCESSORY MUSCLE USE.INCREASED PROPOFOL GTT TO 40 MCG. I WILL TITRATE DOWN ONCE AGITATION IS DECREASED. VSS.NAD NOTED Addendum: 07/17/17 at 0509 by JERRICA GOMEZ RN PROPOFOL REDUCED TO 25 MCG.
[2017-07-17 05:14] LABS: CARBON DIOXIDE 28 mmol/L (21-32); CHLORIDE 112 mmol/L (98-107); CREATININE 0.9 mg/dL (0.6-1.3); GLUCOSE 135 mg/dL (74-106); MAGNESIUM 2.1 mg/dL (1.8-2.4); PHOSPHORUS 3.8 mg/dL (2.5-4.9); POTASSIUM 4.3 mmol/L (3.5-5.1); SODIUM SERUM 144 mmol/L (136-145); UREA NITROGEN, BLOOD 39 mg/dL (7-18)
[2017-07-17] MEDS: DEXAMETHASONE SOD PHOSPHATE 4 MG/ML VIAL IV SCH ×4 (05:39→23:56)
[2017-07-17] MEDS: PROPOFOL 100 ML IV PRN ×3 (05:40→21:16)
[2017-07-17] MEDS: IV NS 0.9% 1,000 ML IV PRN ×2 (05:40→17:41)
--- NOTE | 2017-07-17 07:45 | NUR ---
ICU/RN - Initial Notes Received pt in bed, sedated, orally intubated to mechanical ventilator with settings as ordered. No s/s of pain or discomfort. On tele monitor SB 53. PICC line right upper arm patent and intact with IVF infusing well. Right NGT patent and intact, clamped at this time. Sue catheter intact draining urine to gravity. Safety and comfort measures in place. Will continue to monitor pt closely.
[2017-07-17] MEDS: ASPIRIN 81 MG TAB.CHEW PO SCH (08:04)
[2017-07-17] MEDS: PANTOPRAZOLE 40 MG VIAL IV SCH (08:04)
[2017-07-17 08:09] LABS: ABG BASE EXCESS -0.9 mmol/L; ABG OXYGEN SATURATION 94.2 % (92.0-98.5); ABG PCO2 32.9 mmHg (35.0-45.0); ABG PH 7.452 (7.350-7.450); ABG PO2 73.2 mmHg (75.0-100.0); AaDO2 174.2 mmHg; COHb 0.5 % (0.5-1.5); MetHb 0.5 % (0.0-1.5); O2Hb 93.3 % (94.0-97.0); PEEP,BG 0 cm H2O; SITE, ABG Left Radial
[2017-07-17] MEDS: VANCOMYCIN 0.75 GM in IV D5W 250 ML IV SCH ×2 (09:30→21:16)
--- NOTE | 2017-07-17 10:00 | NUR ---
ICU/RN - Sedation Vacation Diprivan titrated down at 0900 for sedation vacation. At this time, does not follow commands or move extremities purposefully. Pt tachypneic with RR 30's with use of accessory muscles and O2 desaturation at 89%. Sedation placed back on. Will continue to monitor.
--- NOTE | 2017-07-17 10:58 | NUR ---
RT PER DR ESCOBAR PEEP +5 ADDED TO [facility]. Addendum: 07/17/17 at 1059 by YUKI WILSON RT Amended: Links added.
--- NOTE | 2017-07-17 11:00 | NUR ---
ICU/RN - Notes Pt seen and evaluated by Dr Garcia at bedside. Received new vent changes orders, relayed to RT.
[2017-07-17] MEDS ORDERED: Z GUARD REMEDY 2 OZ OINT TP PRN (15:00)
--- NOTE | 2017-07-17 16:00 | NUR ---
ICU/RN - Notes Tube feeding started as ordered. Will monitor for tolerance.
[2017-07-17] MEDS: FIBERSOURCE HN 1,000 ML BOTTLE GT PRN (16:04)
[2017-07-17] MEDS: LACTOBACILLUS RHAMNOSUS GG 1 EACH CAP.SPRINK GT SCH (16:05)
[2017-07-17] MEDS: PROSOURCE / PROSTAT (PYXIS) 30 ML UDC NG SCH (16:05)
--- NOTE | 2017-07-17 19:30 | NUR ---
DRAPERY OPERATOR INITIAL NOTE RECEIVED REPORT FROM RACHAEL GLASS. PT IN BED INTUBATED AND SEDATED. VENT SETTINGS AC 14, 500, 40%, 5. LUNG SOUNDS RHONCHI. BOWEL SOUNDS PRESENT. CARLTON INTACT AND DRAINING URINE. RESTRAINTS RELEASED FOR PASSIVE ROM AND REAPPLIED. REPOSITIONED FOR COMFORT. IV PATENT AND INTACT. BED IN LOW LOCKED POSITION. WILL CONTINUE TO MONITOR.
--- NOTE | 2017-07-17 21:35 | NUR ---
TERMINAL PRESS OPERATOR PT DESATURATING WITH CURRENT VENT SETTINGS, SUCTIONED AND REPOSITIONED FOR COMFORT. SATS REMAIN IN HIGH 80'S. RT NOTIFIED. O2 SETTINGS CHANGED TO 60%. WILL CONTINUE TO MONITOR.
[2017-07-17] MEDS: ATORVASTATIN 40 MG TABLET PO SCH (22:02)
[2017-07-18] VITALS (47 sets, daily range): BP systolic 13–150; BP diastolic 55–99
--- NOTE | 2017-07-18 01:00 | NUR ---
ELEVATED GUARD PT IN BED, INTUBATED AND SEDATED. FIO2 REMAINS AT 60%. BED BATH PROVIDED, PICTURES TAKEN AND REPOSITIONED FOR COMFORT. WILL CONTINUE TO MONITOR.
[2017-07-18] MEDS: PIPERACILLIN /TAZOBACTAM 3.375 G in IV D5W 50 ML IV SCH ×4 (03:47→21:29)
[2017-07-18] MEDS: PROPOFOL 100 ML IV PRN ×3 (03:47→18:56)
[2017-07-18 05:03] LABS: CALCIUM, SERUM 7.5 mg/dL (8.5-10.1); CARBON DIOXIDE 26 mmol/L (21-32); CHLORIDE 111 mmol/L (98-107); CREATININE 0.8 mg/dL (0.6-1.3); GLUCOSE 179 mg/dL (74-106); POTASSIUM 4.3 mmol/L (3.5-5.1); SODIUM SERUM 145 mmol/L (136-145); UREA NITROGEN, BLOOD 45 mg/dL (7-18)
[2017-07-18] MEDS: DEXAMETHASONE SOD PHOSPHATE 4 MG/ML VIAL IV SCH ×4 (05:52→23:26)
[2017-07-18] MEDS: IV NS 0.9% 1,000 ML IV PRN ×2 (06:02→17:33)
--- NOTE | 2017-07-18 08:02 | NUR ---
WOUND CARE CONSULT: PT PRESENTS WITH IMMOBILITY, INTUBATED AT THIS TIME AND NOTED TO HAVE FECAL INCONTINENCE. PT HAS 3+ PITTING EDEMA TO UPPER AND LOWER EXTREMITIES. PT ON FIRST STEP MATTRESS. CURRENT JUAREZ SCORE IS 12. MULTIPLE DRY ABRASIONS AND BRUISES NOTED TO EXTREMITIES AND BACK. NO DRAINAGE NOTED. ALL SKIN PROTECTION MEASURES IN PLACE AND DISCUSSED WITH NURSING STAFF. WILL SEE PRN. DOBBINS IN AGREEMENT WITH PLAN OF CARE. Addendum: 07/18/17 at 0805 by JACOBO HOPSON WNDNU Amended: Links added.
[2017-07-18] MEDS: ASPIRIN 81 MG TAB.CHEW PO SCH (08:12)
[2017-07-18] MEDS: VANCOMYCIN 0.75 GM in IV D5W 250 ML IV SCH (08:12)
[2017-07-18] MEDS: PROSOURCE / PROSTAT (PYXIS) 30 ML UDC NG SCH ×2 (08:12→17:18)
[2017-07-18] MEDS: LACTOBACILLUS RHAMNOSUS GG 1 EACH CAP.SPRINK GT SCH ×2 (08:12→17:18)
[2017-07-18] MEDS: PANTOPRAZOLE 40 MG VIAL IV SCH (08:12)
[2017-07-18 09:45] LABS: ABG PCO2 40.4 mmHg (35.0-45.0); ABG PH 7.419 (7.350-7.450); ABG PO2 82.5 mmHg (75.0-100.0); AaDO2 156.2 mmHg; COHb 0.3 % (0.5-1.5); MetHb 0.5 % (0.0-1.5); O2Hb 94.2 % (94.0-97.0); SITE, ABG Left Radial
[2017-07-18] MEDS: FIBERSOURCE HN 1,000 ML BOTTLE GT PRN (15:35)
--- NOTE | 2017-07-18 15:59 | NUR ---
ZOO DIRECTOR NOTE 0720: Received patient sedated. With ETT to vent tolerated settings at this time. No respiratory distress noted. With right NGT intact, feeding tolerated, no residuals noted. Kept HOB elevated. Noted with copious amount of white thin to thick secretions when suctioned. With ARNULFO PICC intact. On IVF of NS @ 100 and Diprivan @ 25, will titrate accordingly. With Sue cath intact, noted with yellow urine with sediments drained to BSD. DVT pumps on. DIRECTOR OF STUDENT FINANCIAL AID restraints on for safety. 0830: Rendered sedation vacation. noted with tachypneic and increased WOB and needed to suction more often. See IV spreadsheet comments for titration. 0900: S/E by Dr. Lew, made aware for sedation vacation still noted increased WOB and does not follow commands. 0940: S/E by Dr. Porter, no new order at this time. 1100: S/E buy Dr. Escobar, no new order at this time. Aware still unable to wean at this time for unstable off sedation. 1530: S/E by Clemente WOODWARD NP, no new order at this time.
--- NOTE | 2017-07-18 19:30 | NUR ---
STATION MECHANIC APPRENTICE INITIAL NOTE RECEIVED REPORT FROM FELIPA GLASS. PT IN BED, INTUBATED AND SEDATED. VENT SETTINGS AC 14, 500, 40%, 5. LUNG SOUNDS RHONCHI PT IS WITH COPIOUS THICK SECRETIONS. BOWEL SOUNDS PRESENT. CARLTON INTACT AND DRAINING URINE. RIGHT NGT INTACT AND RECEIVING FEEDING. IV PATENT AND INTACT. PULSES PRESENT. REPOSITIONED FOR COMFORT. BED IN LOW LOCKED POSITION. WILL CONTINUE TO MONITOR.
[2017-07-18] MEDS: ATORVASTATIN 40 MG TABLET PO SCH (21:29)
[2017-07-19] VITALS (55 sets, daily range): BP systolic 140–168; BP diastolic 63–96
--- NOTE | 2017-07-19 01:00 | NUR ---
PRESSURE TEST OPERATOR PT IN BED, INTUBATED AND SEDATED. REPOSITIONED FOR COMFORT. WILL CONTINUE TO MONITOR.
[2017-07-19] MEDS: IV NS 0.9% 1,000 ML IV PRN ×2 (03:12→13:39)
--- NOTE | 2017-07-19 03:15 | NUR ---
LADLE PULLER PT INTUBATED AND SEDATED. AM CARE PROVIDED. CENTRAL LINE DRESSING CHANGED. LEFT AC IV REMOVED. REPOSITIONED FOR COMFORT. WILL CONTINUE TO MONITOR.
[2017-07-19] MEDS: PIPERACILLIN /TAZOBACTAM 3.375 G in IV D5W 50 ML IV SCH ×4 (04:05→21:51)
[2017-07-19] MEDS: PROPOFOL 100 ML IV PRN (04:06)
[2017-07-19 05:07] LABS: CALCIUM, SERUM 7.3 mg/dL (8.5-10.1); CARBON DIOXIDE 27 mmol/L (21-32); CHLORIDE 115 mmol/L (98-107); CREATININE 0.7 mg/dL (0.6-1.3); GLUCOSE 127 mg/dL (74-106); POTASSIUM 4.3 mmol/L (3.5-5.1); SODIUM SERUM 148 mmol/L (136-145); UREA NITROGEN, BLOOD 40 mg/dL (7-18)
[2017-07-19] MEDS: DEXAMETHASONE SOD PHOSPHATE 4 MG/ML VIAL IV SCH ×3 (05:25→18:10)
--- NOTE | 2017-07-19 08:00 | NUR ---
pt sedated with propofol 20 kriss. difficult to arouse. propofol titrated down per protocol for sedation vacation.
[2017-07-19] MEDS: ASPIRIN 81 MG TAB.CHEW PO SCH (08:36)
[2017-07-19] MEDS: PROSOURCE / PROSTAT (PYXIS) 30 ML UDC NG SCH ×2 (08:36→16:06)
[2017-07-19] MEDS: LACTOBACILLUS RHAMNOSUS GG 1 EACH CAP.SPRINK GT SCH ×2 (08:36→16:06)
[2017-07-19] MEDS: PANTOPRAZOLE 40 MG VIAL IV SCH (08:36)
--- NOTE | 2017-07-19 09:00 | NUR ---
Dr. Lew at bedside. pt opens eyes, does not follow commands at this time. will continue of propofol. order for Ativan 0.5 q3h prn.
[2017-07-19] MEDS: LORAZEPAM INJ 2 MG/ML VIAL IV PRN ×3 (10:33→22:16)
--- NOTE | 2017-07-19 10:40 | NUR ---
Pt awake, does not follow commands, [id number]. Ativan 0.5 iv as ordered.
[2017-07-19] MEDS: ALBUMIN 25% 25 GM in PREMIX 1 EA IV SCH ×2 (13:36→23:00)
[2017-07-19] MEDS: FIBERSOURCE HN 1,000 ML BOTTLE GT PRN (16:04)
--- NOTE | 2017-07-19 17:59 | NUR ---
Pt assisted with full bed/ bath and skin care.
[2017-07-19] MEDS: ACETAMINOPHEN 325 MG TABLET PO PRN (18:16)
--- NOTE | 2017-07-19 18:54 | NUR ---
BP sustaining above 160. DR Gallagher notified, he is aware, no orders for now.
--- NOTE | 2017-07-19 19:00 | NUR ---
GROUP HOME MANAGER Notes 1900 Received patient orally intubated on the ventilator on AC mode,patient slightly lethargic but easily awakens,opens eyes,responds to pain,with strong gag and cough.Very weak extremities ,withdraws to pain.NGT with ongoing feeding,aspiration precaution observed.PICC line @ ARNULFO .Comfort care done,needs attended. 2199 Much more awake,coughing and breathing a little fast 26-28 RR,psychological support and calming measures rendered.
--- NOTE | 2017-07-19 19:41 | NUR ---
PT RECEIVED INTUBATED WITH 7.5 ETT SECURED AT 24CM AT THE LIP. PT TOLERATING VENT SETTINGS. SX'D FOR MOD AMT OF THICK YELLOW SECRETIONS. VENT ALARMS SET AND AUDIBLE. AMBU BAG AT BEDSIDE. VENT PLUGGED INTO RED OUTLET. WILL CONTINUE TO MONITOR. Addendum: 07/19/17 at 1943 by EUSEBIO MCCLURE RT Amended: Links added.
[2017-07-19] MEDS: ATORVASTATIN 40 MG TABLET PO SCH (21:51)
[2017-07-19] MEDS ORDERED: ALBUMIN 25% 100 ML IV ONE (22:53)
[2017-07-20] VITALS (37 sets, daily range): BP systolic 137–184; BP diastolic 56–93
--- NOTE | 2017-07-20 | NUR ---
FINE WIRE DRAWER taran 07/20/17 12am Status unchanged,remains lethargic,easy to arouse ,grimaces,strong cough and gag,but still very weak barely moving extremities.Breathing a little fast occasionally but not in acute distress.Comfort care as needed. 0200 Full bath done,tolerated turning and moving but coughing a lot.Had formed BM.
[2017-07-20] MEDS: DEXAMETHASONE SOD PHOSPHATE 4 MG/ML VIAL IV SCH ×4 (00:03→17:32)
[2017-07-20] MEDS: IV NS 0.9% 1,000 ML IV PRN ×2 (02:22→13:15)
[2017-07-20] MEDS: LORAZEPAM INJ 2 MG/ML VIAL IV PRN ×3 (03:07→21:08)
[2017-07-20] MEDS: PIPERACILLIN /TAZOBACTAM 3.375 G in IV D5W 50 ML IV SCH ×4 (04:13→21:53)
[2017-07-20 04:39] LABS: BASOPHILS % (AUTO) 0.2 % (0.0-2.0); HEMATOCRIT 28 % (39-51); HEMOGLOBIN 9.1 g/dL (13.5-17.5); LYMPHOCYTES # (AUTO) 0.7 /CMM (0.8-4.8); LYMPHOCYTES % (AUTO) 8.4 % (20.0-44.0); MEAN CORPUSCULAR HEMOGLOBIN 29 PG (26.0-33.0); MEAN CORPUSCULAR HGB CONC 33 g/dl (31.0-36.0); MEAN CORPUSCULAR VOLUME 87 fL (80-96); MONOCYTES # (AUTO) 0.6 /CMM (0.1-1.30); MONOCYTES % (AUTO) 6.8 % (2.0-12.0); NEUTROPHILS # (AUTO) 7.5 /CMM (1.8-8.9); NEUTROPHILS % (AUTO) 84.6 % (43.0-81.0); PLATELET COUNT (AUTO) 122 /CMM (150-450); RDW COEFFICIENT OF VARIATION 15.8 (11.5-15.0); RED BLOOD CELL COUNT(AUTO) 3.18 MIL/uL (4.5-6.0); WHITE BLOOD COUNT (AUTO) 8.8 K/uL (4.3-11.0)
[2017-07-20 05:02] LABS: CALCIUM, SERUM 7.4 mg/dL (8.5-10.1); CARBON DIOXIDE 28 mmol/L (21-32); CHLORIDE 113 mmol/L (98-107); CREATININE 0.7 mg/dL (0.6-1.3); GLUCOSE 120 mg/dL (74-106); POTASSIUM 4.4 mmol/L (3.5-5.1); SODIUM SERUM 147 mmol/L (136-145); UREA NITROGEN, BLOOD 31 mg/dL (7-18)
--- NOTE | 2017-07-20 06:00 | NUR ---
EXECUTIVE LEGAL SECRETARY Notes 0600 stable,calm ,not in distress,remains lethargic but arousable to pain,grimaces,with strong cough and gag reflex.No sign of respiratory distress,saturating in the high 90's.Continue to closely monitor respiratory status,weaning trials today if tolerated.
--- NOTE | 2017-07-20 08:00 | NUR ---
PT REMAINS OFF PROPOFOL, VSS, DOES NOT INDICATE PAIN OR DISTRESS. OPENS EYE TO STERNAL RUB BIT DOES NOT FOLLOW COMMANDS.
[2017-07-20] MEDS: LACTOBACILLUS RHAMNOSUS GG 1 EACH CAP.SPRINK GT SCH ×2 (08:11→17:32)
[2017-07-20] MEDS: PANTOPRAZOLE 40 MG VIAL IV SCH (08:11)
[2017-07-20] MEDS: PROSOURCE / PROSTAT (PYXIS) 30 ML UDC NG SCH ×2 (08:11→18:35)
[2017-07-20] MEDS: ASPIRIN 81 MG TAB.CHEW PO SCH (08:11)
--- NOTE | 2017-07-20 10:00 | NUR ---
PT ASSISTED WITH FULL BED BATH. BM X1 SIN CARE.
[2017-07-20] MEDS: ACETAMINOPHEN 325 MG TABLET PO PRN ×2 (15:47→21:53)
[2017-07-20] MEDS: FIBERSOURCE HN 1,000 ML BOTTLE GT PRN (15:47)
--- NOTE | 2017-07-20 16:00 | NUR ---
ME IS NOW AWAKE ATTEMPTS TO TALK, RR UP TO 40TH. ME INSTRUCTED TO SLOW DOWN THE BREATHING, WHICH HE WAS ABLE TO DO. PT WAS ABLE TO TRACK AND FOLLOW, AND FOLLOW INSTRUCTIONS TO SQUEEZE FINGERS AND LET GO. CHARGE NURSE UPDATED ON PROGRESS.
--- NOTE | 2017-07-20 19:00 | NUR ---
POTATO CHIP SACKING MACHINE OPERATOR Notes 1899 Received patient orally intubated on the ventilator on AC modestill lethargic but more responsive today,opens eyes spontaneously ,responds to name calling with good eye contact,seems coherent ,tries to follow simple commands ,gets restless ,able to lift left arm more,( on bilateral soft wrist restraints) to prevent self extubation.PICC line ARNULFO .NGT for feeding ,tolerating well. 1999 Starting to get agitated ,tachypneic in the 30's ,hyperventilating but O2 sat remains 99-100%.Psychological support done,comfort care and needs attended. 2099 Remains agitated on and off ,hyperventilating.prn Ativan given.Comfort care ,turn to sides and back care done.
[2017-07-20] MEDS: ATORVASTATIN 40 MG TABLET PO SCH (21:53)
--- NOTE | 2017-07-20 23:00 | NUR ---
Denial Resolution Specialist Notes 2300 called back,obtained restraints order.
[2017-07-21] VITALS (40 sets, daily range): BP systolic 129–183; BP diastolic 62–94
--- NOTE | 2017-07-21 | NUR ---
LICENSED LIFE AND HEALTH AGENT Notes Remains stable,but wakes up occasionally agitated.Comfort care done ,psychological support rendered.
[2017-07-21] MEDS: DEXAMETHASONE SOD PHOSPHATE 4 MG/ML VIAL IV SCH ×5 (00:20→23:24)
[2017-07-21] MEDS: IV NS 0.9% 1,000 ML IV PRN ×2 (00:20→11:13)
--- NOTE | 2017-07-21 02:00 | NUR ---
wage analyst notes 0200 Awake,agitated prn Ativan given.AM care done,tolerated turning with no respiratory issues.
[2017-07-21] MEDS: LORAZEPAM INJ 2 MG/ML VIAL IV PRN ×4 (02:01→21:38)
[2017-07-21 04:34] LABS: BASOPHILS % (AUTO) 0.1 % (0.0-2.0); EOSINOPHILS % (AUTO) 0.1 % (0.0-6.0); HEMATOCRIT 31 % (39-51); HEMOGLOBIN 10.3 g/dL (13.5-17.5); LYMPHOCYTES # (AUTO) 0.9 /CMM (0.8-4.8); MEAN CORPUSCULAR HEMOGLOBIN 29 PG (26.0-33.0); MEAN CORPUSCULAR HGB CONC 33 g/dl (31.0-36.0); MEAN CORPUSCULAR VOLUME 87 fL (80-96); MONOCYTES # (AUTO) 0.5 /CMM (0.1-1.30); MONOCYTES % (AUTO) 3.7 % (2.0-12.0); NEUTROPHILS # (AUTO) 11.9 /CMM (1.8-8.9); NEUTROPHILS % (AUTO) 89.1 % (43.0-81.0); PLATELET COUNT (AUTO) 153 /CMM (150-450); RDW COEFFICIENT OF VARIATION 16.1 (11.5-15.0); RED BLOOD CELL COUNT(AUTO) 3.55 MIL/uL (4.5-6.0); WHITE BLOOD COUNT (AUTO) 13.3 K/uL (4.3-11.0)
[2017-07-21] MEDS: PIPERACILLIN /TAZOBACTAM 3.375 G in IV D5W 50 ML IV SCH ×4 (04:48→21:37)
[2017-07-21 04:49] LABS: CALCIUM, SERUM 7.4 mg/dL (8.5-10.1); CARBON DIOXIDE 27 mmol/L (21-32); CHLORIDE 110 mmol/L (98-107); CREATININE 0.6 mg/dL (0.6-1.3); GLUCOSE 129 mg/dL (74-106); POTASSIUM 4.2 mmol/L (3.5-5.1); SODIUM SERUM 144 mmol/L (136-145); UREA NITROGEN, BLOOD 29 mg/dL (7-18)
[2017-07-21] MEDS: ACETAMINOPHEN 325 MG TABLET PO PRN (05:07)
--- NOTE | 2017-07-21 07:44 | NUR ---
INITIAL TRAVEL DIRECTOR NOTE RCVD PT SLEEPING AROUSED TO PAINFUL STIMULI, SHOWING NO S/O DISTRESS/PAIN AT THIS TIME. SR/SB ON TELE. INTUBATED 7.5 24 AT UPPER LIP TOLERATING ORDERED VENT SETTINGS. NG PLACEMENT VERIFIED BY AUSCULTATION/ASPIRATION. FIVE ML RESIDUAL OBTAINED. CARLTON TO GRAVITY DRAINING YELLOW URINE. IV SITES C/D/I/PATENT. NO S/O INFILTRATION/PHLEBITIS OBSERVED IVF INFUSING. WILL CONTINUE TO MONITOR PT FOR SAFETY AND COMFORT. CALL LIGHT WITHIN REACH. BED IN LOW AND LOCKED POSITION.
[2017-07-21] MEDS: PANTOPRAZOLE 40 MG VIAL IV SCH (09:13)
[2017-07-21] MEDS: ASPIRIN 81 MG TAB.CHEW PO SCH (09:13)
[2017-07-21] MEDS: PROSOURCE / PROSTAT (PYXIS) 30 ML UDC NG SCH ×2 (09:13→17:13)
[2017-07-21] MEDS: LACTOBACILLUS RHAMNOSUS GG 1 EACH CAP.SPRINK GT SCH ×2 (09:13→17:13)
[2017-07-21] MEDS: hydrALAZINE HCL IV 20 MG VIAL IV PRN (09:39)
--- NOTE | 2017-07-21 12:37 | NUR ---
VP TALENT MANAGEMENT NOTE PT APPEARS MORE AWAKE, ABLE TO FOLLOW SIMPLE COMMANDS SUCH OPEN MOUTH AND SQUEEZE RN FINGERS WITH HAND. PT WAS ORIENTED TO PLACE, TIME AND SITUATION. PT NODDED IN ACKNOWLEDGEMENT. PT DENIES ANY PAIN AT THIS TIME WILL CONTINUE TO MONITOR.
[2017-07-21] MEDS: LISINOPRIL (10MG) 10 MG TABLET PO SCH (12:41)
[2017-07-21] MEDS: FIBERSOURCE HN 1,000 ML BOTTLE GT PRN (15:26)
--- NOTE | 2017-07-21 18:28 | NUR ---
PIPE FITTER FIRE SPRINKLER SYSTEMS NOTE PT REMAINS AWAKE, APPEARS CONFUSED BUT CALM AT THIS TIME. SR ON TELE. INTUBATED TOLERATING VENT SETTINGS WELL. RIGHT NG TUBE PLACEMENT VERIFIED BY AUSCULTATION/ASPIRATION. TEN ML RESIDUAL OBTAINED. CARLTON TO GRAVITY DRAINING CLEAR, YELLOW URINE. IV SITE C/D/I/PATENT. NO S/O INFILTRATION/PHLEBITIS OBSERVED. IVF INFUSING TKO. PT'S CARE WILL BE ENDORSED TO OUTSOLE SKIVER RN FOR CONTINUITY OF CARE. CALL LIGHT WITHIN REACH. BED IN LOW AND LOCKED POSITION.
--- NOTE | 2017-07-21 18:44 | NUR ---
FAMILY CONSUMER SCIENCE TEACHER NOTE PT GIVEN ORDERED DOSE OF ATIVAN FOR ANXIETY/AGITATION PT APPEARS RESTLESS, SWINGING LEG OFF TO THE SIDE OF THE BED. BILATERAL SOFT WRIST RESTRAINTS REMAIN IN PLACE WILL CONTINUE TO MONITOR PT.
--- NOTE | 2017-07-21 19:30 | NUR ---
Received report patient awake trying to reach ET tube with left hand.Bilateral soft wrist restraints on. Released and reapplied after turning and repositioning.Remains intubated to vent on same settings. Well tolerated saturating 99%.With copious secretions, suctioned and oral care done.SR 70's-80's. Tube feeding via right ngt infusing.Placement verified no residual noted.HOB elevated at 45 degrees. IVF NS at TKO infusing via ARNULFO PICC Line and site intact.FC to gravity draining clear yellow urine.No acute distress noted.Continue monitoring.
[2017-07-21] MEDS: ATORVASTATIN 40 MG TABLET PO SCH (21:37)
--- NOTE | 2017-07-21 21:40 | NUR ---
PRN Ativan administered for agitation/trying to reach ET tube.Bilateral soft wrist restrains on.Continue to monitor.
[2017-07-22] VITALS (38 sets, daily range): BP systolic 104–178; BP diastolic 41–91
[2017-07-22] MEDS: hydrALAZINE HCL IV 20 MG VIAL IV PRN ×2 (00:32→15:05)
--- NOTE | 2017-07-22 00:35 | NUR ---
PRN Hydralazine administered for elevated BP.Continue to monitor BP q 1 HR.
[2017-07-22] MEDS: LORAZEPAM INJ 2 MG/ML VIAL IV PRN ×4 (01:25→20:42)
--- NOTE | 2017-07-22 02:00 | NUR ---
Patient resting .VS stable.Turned and repositioned.
[2017-07-22] MEDS: PIPERACILLIN /TAZOBACTAM 3.375 G in IV D5W 50 ML IV SCH ×4 (03:47→21:28)
[2017-07-22 05:17] LABS: CALCIUM, SERUM 7.4 mg/dL (8.5-10.1); CARBON DIOXIDE 27 mmol/L (21-32); CHLORIDE 110 mmol/L (98-107); CREATININE 0.6 mg/dL (0.6-1.3); EOSINOPHILS # (AUTO) 0.1 /CMM (0.0-0.7); EOSINOPHILS % (AUTO) 0.6 % (0.0-6.0); GLUCOSE 134 mg/dL (74-106); HEMATOCRIT 29 % (39-51); HEMOGLOBIN 9.8 g/dL (13.5-17.5); LYMPHOCYTES # (AUTO) 0.7 /CMM (0.8-4.8); LYMPHOCYTES % (AUTO) 4.4 % (20.0-44.0); MEAN CORPUSCULAR HEMOGLOBIN 29 PG (26.0-33.0); MEAN CORPUSCULAR HGB CONC 33 g/dl (31.0-36.0); MEAN CORPUSCULAR VOLUME 87 fL (80-96); MONOCYTES # (AUTO) 0.3 /CMM (0.1-1.30); MONOCYTES % (AUTO) 2.1 % (2.0-12.0); NEUTROPHILS # (AUTO) 14.4 /CMM (1.8-8.9); NEUTROPHILS % (AUTO) 92.9 % (43.0-81.0); PLATELET COUNT (AUTO) 170 /CMM (150-450); POTASSIUM 3.8 mmol/L (3.5-5.1); RDW COEFFICIENT OF VARIATION 15.9 (11.5-15.0); RED BLOOD CELL COUNT(AUTO) 3.38 MIL/uL (4.5-6.0); SODIUM SERUM 143 mmol/L (136-145); UREA NITROGEN, BLOOD 30 mg/dL (7-18); WHITE BLOOD COUNT (AUTO) 15.5 K/uL (4.3-11.0)
[2017-07-22] MEDS: DEXAMETHASONE SOD PHOSPHATE 4 MG/ML VIAL IV SCH ×3 (05:19→17:30)
[2017-07-22 06:24] LABS: LYMPHOCYTES % (MANUAL) 2 % (16-48); MONOCYTES % (MANUAL) 4 % (0-11.0); NEUTROPHILS % (MANUAL) 94 (42-76)
--- NOTE | 2017-07-22 06:42 | NUR ---
Patient resting appears comfortable.VS stable.SR.Still on vent for possible weaning today. No acute distress noted.Feeding well tolerated.Bathed and linens changed.Was turned and repositioned.Had one loose BM during the shift.With adequate urine output.Will endorsed to AM shift RN for continuity of care.
--- NOTE | 2017-07-22 07:50 | NUR ---
SUPERVISOR CEREAL: pt.is awake, confused, good eyes contact, rest now, on wrist restraints, unable to follow commands prop.well now, large suctioned secretion from ETT/orally, O2sat. over 94%, SR, SBP over 100, below 150, GTF residual WNL, plan: SIMV mode at 12.00, spoke with RT
[2017-07-22] MEDS: LACTOBACILLUS RHAMNOSUS GG 1 EACH CAP.SPRINK GT SCH ×2 (09:38→16:55)
[2017-07-22] MEDS: PANTOPRAZOLE 40 MG VIAL IV SCH (09:39)
[2017-07-22] MEDS: LISINOPRIL (10MG) 10 MG TABLET PO SCH (09:39)
[2017-07-22] MEDS: ASPIRIN 81 MG TAB.CHEW PO SCH (09:39)
[2017-07-22] MEDS: PROSOURCE / PROSTAT (PYXIS) 30 ML UDC NG SCH ×2 (09:39→16:55)
--- NOTE | 2017-07-22 10:20 | NUR ---
DAMAGED FREIGHT INSPECTOR: is in room, updated with pt.current condition, VS, I/O, O2 sat., NGTF, WBC 15.5, POC: SIMV next, ordered: BCx2
--- NOTE | 2017-07-22 11:31 | NUR ---
CORE SETTER: is in room, updated with pt.current status, VS, neuro status, I/O, GTF, WBC, orders, plan: change to SIMV
--- NOTE | 2017-07-22 13:25 | NUR ---
HIGH SCHOOL HVAC R INSTRUCTOR: pt.is awake, restless now, tachypnea with RR 30-44, O2sat WNL on monitor, was suctioned x3 per last 2 hrs, SR, able to keep breathing control well for short period, bitting ETT occas., pt.was oriented for POC, will take ABG and waiting
[2017-07-22 14:00] LABS: ABG PCO2 28.1 mmHg (35.0-45.0); ABG PH 7.545 (7.350-7.450); ABG PO2 94.8 mmHg (75.0-100.0); AaDO2 158.1 mmHg; COHb 0.3 % (0.5-1.5); MetHb 0.7 % (0.0-1.5); PEEP,BG 5 cm H2O; SITE, ABG Right Radial; VT, ABG 500 mL
--- NOTE | 2017-07-22 14:00 | NUR ---
MILIEU COUNSELOR: ABG: pH 7.54, CO2 28, O2 94, Bicarb 23, is in room/updated with all above, placed pt.back to AC mode, ordered: on 07/23 08.00: CPAP mode, ABG in 1 hr
[2017-07-22] MEDS: ACETAMINOPHEN 325 MG TABLET PO PRN (14:30)
--- NOTE | 2017-07-22 14:50 | NUR ---
BEHAVIORAL THERAPY COORDINATOR: Yadi, CRISSY DIESEL ELECTRICIAN is in room, notified re pt.current status, VS, labs, POC, orders, I/O, see new orders
--- NOTE | 2017-07-22 17:02 | NUR ---
ICT ACCOUNT MANAGER: pt.is restless now, SR, BP 118/60, RR 20-35, coughing/suctioned, no pain, anxious, O2 sat. 96-100%, ativan 0.5 mg IV dose was given
[2017-07-22] MEDS: FIBERSOURCE HN 1,000 ML BOTTLE GT PRN (17:31)
--- NOTE | 2017-07-22 17:45 | NUR ---
BENCH CHEMIST: pt.is rest now, no SOB, O2 sat. 96-100%, SR, BP WNL, was suctioned
--- NOTE | 2017-07-22 19:15 | NUR ---
SUCTION DRUM DRIER OPERATOR: RECEIVED ORALLY INTUBATED PT, AWAKE AND ALERT WT RESTLESSNESS. UNABLE TO FOLLOW COMMANDS. TOLERATING VENT SETTINGS ORDERED WT 02 SAT ABOVE 96%. SR ON TOBACCO SAMPLE PULLER. TOLERATING NGT FEEDING WT 5CC RESIDUAL. ARNULFO PICC INFUSING NS TKO WT NO S/S OF COMPLICATIONS. BILAT. SOFT WRIST RESTRAINTS IN PLACE FOR EPISODES OF TRYING TO REACH FOR TUBINGS. NOTED WT GOOD CIRCULATION AND NO NEW SKIN BREAKDOWN WHEN RESTRAINTS WERE RELEASED AND CHECKED. F/C PATENT AND INTACT DRAINING SHARITA COLORED URINE TO GRAVITY. HOB AT 35 DEGREES. SAFETY PRECAUTION NOTED. WILL CONTINUE TO MONITOR.
[2017-07-22] MEDS ORDERED: FUROSEMIDE 40 MG/4 ML VIAL IV ONE (21:00)
--- NOTE | 2017-07-22 21:20 | NUR ---
GENERAL MEDICAL PRACTITIONER: REASSESSED AFTER GIVEN ATIVAN WT GOOD EFFECT. PT IS RESTING COMFORTABLY WT EYES CLOSED. NO RESTLESSNESS, HR IN THE 70s. WILL CONTINUE TO MONITOR.
--- NOTE | 2017-07-22 21:25 | NUR ---
CIGAR MAKING MACHINE OPERATOR: PT SEEN AND EXAMINED BY DR. MALDONADO WT ORDER TO GIVE LASIX 40MG X 1 IVP. MED ADMINISTERED. WILL CONTINUE TO MONITOR URINE OUTPUT.
[2017-07-22] MEDS: ATORVASTATIN 40 MG TABLET PO SCH (21:27)
--- NOTE | 2017-07-22 21:37 | NUR ---
PT RECEIVED INTUBATED WITH 7.5 ETT SECURED AT 24CM AT THE LIP. PT TOLERATING VENT SETTINGS. SX'D FOR MOD AMT OF THICK YELLOW SECRETIONS. VENT ALARMS SET AND AUDIBLE. AMBU BAG AT BEDSIDE. VENT PLUGGED INTO RED OUTLET. WILL CONTINUE TO MONITOR. Addendum: 07/22/17 at 2138 by EUSEBIO MCCLURE RT Amended: Links added.
--- NOTE | 2017-07-22 22:30 | NUR ---
DRILL PRESS OPERATOR HELPER: PT HAD EPISODE OF 3RD LOOSE/MUSHY STOOL IN MODERATE AMT. WITHIN 24 HRS. SPECIMEN COLLECTED PER PROTOCOL FOR C-DIFF.
[2017-07-23] VITALS (51 sets, daily range): BP systolic 100–166; BP diastolic 48–112
[2017-07-23] MEDS: DEXAMETHASONE SOD PHOSPHATE 4 MG/ML VIAL IV SCH ×4 (00:26→17:29)
[2017-07-23] MEDS: LORAZEPAM INJ 2 MG/ML VIAL IV PRN ×2 (02:04→11:32)
--- NOTE | 2017-07-23 03:00 | NUR ---
COMPETITIVE INTELLIGENCE ANALYST: REASSESSED AFTER GIVEN ATIVAN WT GOOD EFFECT. NO RESTLESSNESS NOTED AT THIS TIME AND BP NOW WNL. ALSO DIURESED A LOT AFTER GIVEN LASIX. WILL CONTINUE TO MONITOR.
[2017-07-23] MEDS: PIPERACILLIN /TAZOBACTAM 3.375 G in IV D5W 50 ML IV SCH ×3 (04:07→17:01)
[2017-07-23 04:33] LABS: HEMATOCRIT 28 % (39-51); HEMOGLOBIN 9.4 g/dL (13.5-17.5); LYMPHOCYTES # (AUTO) 0.5 /CMM (0.8-4.8); LYMPHOCYTES % (AUTO) 3.5 % (20.0-44.0); MEAN CORPUSCULAR HEMOGLOBIN 29 PG (26.0-33.0); MEAN CORPUSCULAR HGB CONC 33 g/dl (31.0-36.0); MEAN CORPUSCULAR VOLUME 88 fL (80-96); MONOCYTES # (AUTO) 0.3 /CMM (0.1-1.30); MONOCYTES % (AUTO) 1.7 % (2.0-12.0); NEUTROPHILS # (AUTO) 14.4 /CMM (1.8-8.9); NEUTROPHILS % (AUTO) 94.8 % (43.0-81.0); PLATELET COUNT (AUTO) 189 /CMM (150-450); RDW COEFFICIENT OF VARIATION 15.9 (11.5-15.0); RED BLOOD CELL COUNT(AUTO) 3.22 MIL/uL (4.5-6.0); WHITE BLOOD COUNT (AUTO) 15.2 K/uL (4.3-11.0)
[2017-07-23 04:45] LABS: CALCIUM, SERUM 7.6 mg/dL (8.5-10.1); CARBON DIOXIDE 28 mmol/L (21-32); CHLORIDE 109 mmol/L (98-107); CREATININE 0.8 mg/dL (0.6-1.3); GLUCOSE 134 mg/dL (74-106); POTASSIUM 3.8 mmol/L (3.5-5.1); SODIUM SERUM 143 mmol/L (136-145); UREA NITROGEN, BLOOD 32 mg/dL (7-18)
[2017-07-23] MEDS: IV NS 0.9% 250 ML IV PRN (05:39)
--- NOTE | 2017-07-23 06:05 | NUR ---
CUSTOMER SERVICER: NO GABRIEL AT THIS TIME. VS WITHIN HIS BASELINE. NO ACUTE DISTRESS. NO EVIDENCE OF DISCOMFORT.
[2017-07-23] MEDS ORDERED: FUROSEMIDE 20 MG/2 ML VIAL IV ONE (07:30)
--- NOTE | 2017-07-23 07:47 | NUR ---
MEDIA PRODUCTION MANAGER: pt.is awake, able to open eyes spont., eyes contact+, rest now, unable to follow commands well, weak, on wrists restraints, SR, SBP over 100, O2sat. 94-100%, suctioned with lavage/thick secretion, updated with pt.status, VS, see new orders, plan: CPAP mode today, RT updated
--- NOTE | 2017-07-23 08:05 | NUR ---
DOCK OPERATIONS SUPERVISOR: pt. placed on CPAP mode, O2 sat. WNL
[2017-07-23] MEDS: PANTOPRAZOLE 40 MG VIAL IV SCH (08:43)
[2017-07-23] MEDS: LACTOBACILLUS RHAMNOSUS GG 1 EACH CAP.SPRINK GT SCH ×2 (08:43→16:08)
[2017-07-23] MEDS: LISINOPRIL (10MG) 10 MG TABLET PO SCH (08:44)
[2017-07-23] MEDS: PROSOURCE / PROSTAT (PYXIS) 30 ML UDC NG SCH ×2 (08:45→16:08)
[2017-07-23] MEDS: ASPIRIN 81 MG TAB.CHEW PO SCH (08:47)
[2017-07-23 08:59] LABS: ABG BASE EXCESS 2.8 mmol/L; ABG PCO2 30.3 mmHg (35.0-45.0); ABG PH 7.534 (7.350-7.450); ABG PO2 133.4 mmHg (75.0-100.0); COHb 0.1 % (0.5-1.5); MetHb 0.6 % (0.0-1.5); O2Hb 97.3 % (94.0-97.0); PEEP,BG 5 cm H2O; SITE, ABG Left Radial; VENT MODE, BG CPAP 12 +5 40%
--- NOTE | 2017-07-23 09:04 | NUR ---
[employer] MAINFRAME SYSTEMS PROGRAMMER: on CPAP: pH 7.53, CO2 30, O2 133, bicarb 25, pt.is awake, eyes contact+, low concentration and weak: unable to follow commands well, O2sat. WNL, no SOB,
--- NOTE | 2017-07-23 10:10 | NUR ---
MOVIE PROJECTIONIST: is in room, updated with pt.current condition, VS, ABG, going to reevaluate during 30 min. Unable to get lasix from [facility], spoke with pharmacy x2
--- NOTE | 2017-07-23 10:48 | NUR ---
RT PATIENT UNABLE TO TOLERATE VENT WEANING AND BECAME DISTRESSED. PLACED BACK ON AC MODE PER DR GIBBON. QUAN MERRILL AT BESIDE Addendum: 07/23/17 at 1049 by YUKI WILSON RT Amended: Links added.
--- NOTE | 2017-07-23 11:15 | NUR ---
RN BERTRAM: pt.is more active/reactive, eyes tracking +, still weak, suctioned x2 last 1h, unable to tolerate wean off now per reevaluation, unable to follow keep breathing patent well, placed back on AC mode, is in room too, updated with all above, see new orders, charge nurse is aware
--- NOTE | 2017-07-23 11:35 | NUR ---
AGENCY DIRECTOR: pt.began restless, RR 25-32, O2 sat. WNL, SR, Ativan 0.5 mg IV given
--- NOTE | 2017-07-23 13:15 | NUR ---
CARTRIDGE GAUGER: pt.became more restless, agitating, tachypnic 30-40, O2 sat. over 94%, coughing, bitting tube, Diprivan gtt was restarted
[2017-07-23] MEDS: PROPOFOL 100 ML IV PRN ×2 (13:31→21:38)
--- NOTE | 2017-07-23 14:26 | NUR ---
CONCRETE FENCE BUILDER: pt.is sedated well, rest, no grimacing, reactive by light pain/touch, SR, SBP [id number], O2 sat. WNL
[2017-07-23] MEDS: FIBERSOURCE HN 1,000 ML BOTTLE GT PRN (16:13)
--- NOTE | 2017-07-23 18:10 | NUR ---
BURNING PLANT OPERATOR: pt.is sedated well, rest, O2 sat. 94-98%, SR/SB 54-64, SBP over 100, NGTF residual WNL, PM/skin care done
--- NOTE | 2017-07-23 18:30 | NUR ---
2 YEAR OLDS PRESCHOOL TEACHER: pt.is able to open eyes spont. now, arms activity+, RR up to 28, little grimacing, increased Diprivan to 25mcg/kg/m
--- NOTE | 2017-07-23 19:00 | NUR ---
SECURITY BUSINESS ANALYST Notes Received patient orally intubated on the vent on AC mode,sedated on Propofol.On bilateral soft wrist restraints .Responds by coughing when suctioned ,and slightly opens and blinks eyes.Feeding via NGT ,aspiration precaution observed.Comfort care done,needs attended. 1930 Will wean down Propofol drip as tolerated.
--- NOTE | 2017-07-23 19:30 | NUR ---
special librarian 193 Propofol drip decrease to 20 mcg/kg/min
--- NOTE | 2017-07-23 20:00 | NUR ---
dry placer machine operator Propofol drip decrease to 15 mcg/kg/min ,will monitor closely ,if becomes agitated ,will adjust drip accordingly.
--- NOTE | 2017-07-23 22:00 | NUR ---
computer forensic examiner Patient awake,breathing fast and deep in the 40's ,tried to talk and calm patient down but remianed very tachypneic,Propofol increase back to 20 mcg/kg/min.
[2017-07-23] MEDS: ATORVASTATIN 40 MG TABLET PO SCH (22:22)
[2017-07-24] VITALS (50 sets, daily range): BP systolic 103–169; BP diastolic 51–112
--- NOTE | 2017-07-24 | NUR ---
bus mechanic Notes 07/24/17 12 am Well sedated after increasing Propofol drip,still arousable,opens eyes to deep pain.Remains bradycardic in the 50's but BP stable.Continue to monitoe heart rate and titrate Propofol as needed and tolerated.
[2017-07-24] MEDS: DEXAMETHASONE SOD PHOSPHATE 4 MG/ML VIAL IV SCH ×4 (00:22→17:24)
--- NOTE | 2017-07-24 04:00 | NUR ---
print line operator Notes 0400 Status unchanged .am care done,gets agitated ,coughing and gagging a lot when turned and moved maintained on bilateral soft wrist restraints. 0600 Noted brief severe bradycardia episode in the 39-40,patient status unchanged,not in distress.will titrate down Propofol drip (maybe causing severe bradycardia) also ready for weaning trials today as tolerated.
[2017-07-24] MEDS: IV NS 0.9% 250 ML IV PRN (04:01)
[2017-07-24 04:36] LABS: BASOPHILS % (AUTO) 0.1 % (0.0-2.0); HEMATOCRIT 30 % (39-51); HEMOGLOBIN 9.9 g/dL (13.5-17.5); LYMPHOCYTES # (AUTO) 0.5 /CMM (0.8-4.8); LYMPHOCYTES % (AUTO) 4.8 % (20.0-44.0); MEAN CORPUSCULAR HEMOGLOBIN 29 PG (26.0-33.0); MEAN CORPUSCULAR HGB CONC 33 g/dl (31.0-36.0); MEAN CORPUSCULAR VOLUME 88 fL (80-96); MONOCYTES # (AUTO) 0.2 /CMM (0.1-1.30); MONOCYTES % (AUTO) 1.6 % (2.0-12.0); NEUTROPHILS # (AUTO) 10.1 /CMM (1.8-8.9); NEUTROPHILS % (AUTO) 93.5 % (43.0-81.0); PLATELET COUNT (AUTO) 184 /CMM (150-450); RDW COEFFICIENT OF VARIATION 16.1 (11.5-15.0); RED BLOOD CELL COUNT(AUTO) 3.44 MIL/uL (4.5-6.0); WHITE BLOOD COUNT (AUTO) 10.8 K/uL (4.3-11.0)
[2017-07-24 04:50] LABS: ALANINE AMINOTRANSFERASE 40 U/L (12-78); ALBUMIN 1.9 g/dL (3.4-5.0); ALKALINE PHOSPHATASE 124 U/L (46-116); ASPARTATE AMINOTRANSFERASE 19 U/L (15-37); BILIRUBIN,TOTAL 0.4 mg/dL (0.2-1.0); CALCIUM, SERUM 7.7 mg/dL (8.5-10.1); CARBON DIOXIDE 30 mmol/L (21-32); CHLORIDE 110 mmol/L (98-107); CREATININE 0.6 mg/dL (0.6-1.3); GLUCOSE 180 mg/dL (74-106); MAGNESIUM 1.9 mg/dL (1.8-2.4); PHOSPHORUS 3.1 mg/dL (2.5-4.9); POTASSIUM 3.7 mmol/L (3.5-5.1); SODIUM SERUM 145 mmol/L (136-145); TOTAL PROTEIN, SERUM 4.8 g/dL (6.4-8.2); UREA NITROGEN, BLOOD 38 mg/dL (7-18)
[2017-07-24] MEDS: PROPOFOL 100 ML IV PRN (06:21)
--- NOTE | 2017-07-24 07:36 | NUR ---
PROCESS CONSULTANT RECEIVED PATIENT FROM THE PREVIOUS SHIFT. SEDATED ON DIPRIVAN. AFEBRILE. STABLE VITAL SINGS. SINUS KATARZYNA ON MONITOR. NO ACUTE RESP DISTRESS NOTED. MODERATE AMOUNTS OF CLEAR SECRETIONS NOTED FROM ETT AND ORAL ROUTES. RESTRAINTS ARE ON FOR SAFETY. CARLTON DRAINING URINE TO GRAVITY. WILL CONTINUE TO MONITOR AND PROVIDE CARE.
[2017-07-24] MEDS: QUETIAPINE FUMARATE 25 MG TABLET NG SCH ×3 (08:51→21:21)
[2017-07-24] MEDS: FUROSEMIDE 40 MG/4 ML VIAL IV SCH ×3 (08:51→16:15)
[2017-07-24] MEDS: LISINOPRIL (10MG) 10 MG TABLET PO SCH (08:52)
[2017-07-24] MEDS: ASPIRIN 81 MG TAB.CHEW PO SCH (08:52)
[2017-07-24] MEDS: PANTOPRAZOLE 40 MG VIAL IV SCH (08:52)
[2017-07-24] MEDS: ENOXAPARIN SODIUM 40 MG/0.4 ML DISP.SYRIN SQ SCH (08:53)
[2017-07-24] MEDS: LACTOBACILLUS RHAMNOSUS GG 1 EACH CAP.SPRINK GT SCH ×2 (08:53→16:15)
[2017-07-24] MEDS: VALPROIC ACID 250 MG/5 ML UDC GT SCH ×2 (08:53→21:21)
[2017-07-24] MEDS: PROSOURCE / PROSTAT (PYXIS) 30 ML UDC NG SCH ×2 (08:54→16:16)
--- NOTE | 2017-07-24 09:30 | NUR ---
PLUSH CUTTER OFF SEDATION PATIENT NOTED TO BE ALERT AND AWAKE. ABLE TO FOLLOW COMMANDS. PATIENT WAS RESTARTED ON PROPOFOL AT 10MCG/KG/MIN IN ORDER TO KEEP HIM COMFORTABLE. WILL CLOSELY MONITOR.
[2017-07-24] MEDS: ALBUMIN 25% 25 GM in PREMIX 1 EA IV SCH ×2 (12:23→22:47)
[2017-07-24] MEDS: LORAZEPAM INJ 2 MG/ML VIAL IV PRN (14:26)
[2017-07-24] MEDS: FIBERSOURCE HN 1,000 ML BOTTLE GT PRN (17:26)
--- NOTE | 2017-07-24 19:44 | NUR ---
MANAGER ORDER. INITIAL ASSESSMENT. RECEIVED THE PT REST ON THE BED. ORALLY INTUBATED. SEDATED WITH DIPRIVAN. ETT 7.5CM,LIP 24CM,AC 14,TV 500,FIO2 40%, PEEP 5. SAT 98%. NO ACUTE DISTRESS NOTED. SUSTAIN ENGINEER SHOWING S KATARZYNA. RATE IS AT THIS TIME 50. HOB ELEVATED. OGT INTACT. FIBER SOURCE 50ML/H, IV RT UPPER ARM PICC LINE DIPRIVAN 10MCG/KG/MIN, TURN AND REPOSITION Q2H. FC PATENT. URI E DRAINING. WILL CONTINUE TO MONITOR VITALS.
[2017-07-24] MEDS: ATORVASTATIN 40 MG TABLET PO SCH (21:21)
[2017-07-24] MEDS: QUETIAPINE FUMARATE 100 MG TABLET NG SCH (21:21)
[2017-07-25] VITALS (50 sets, daily range): BP systolic 95–160; BP diastolic 55–80
[2017-07-25] MEDS: DEXAMETHASONE SOD PHOSPHATE 4 MG/ML VIAL IV SCH ×5 (00:17→23:56)
[2017-07-25] MEDS: IV NS 0.9% 250 ML IV PRN (00:17)
[2017-07-25] MEDS: PROPOFOL 100 ML IV PRN ×2 (02:43→08:11)
--- NOTE | 2017-07-25 02:55 | NUR ---
SOLE SPLITTER. AM CARE, ORAL CARE, BED BATH GIVEN. LINEN CHANGED. REMAINING SAME VENT SETTING TOLERATED WELL. SAT 98%. NO ACUTE DISTRESS NOTED. ROADABILITY MACHINE OPERATOR SHOWING S KATARZYNA. IV RT UPPER ARM PICC LINE DIPRIVAN 10MCG/KG/MIN. FC PATENT. URINE DRAINING. OGT FEEDING TOLERATED WELL. HOB ELEVATED. WALTER SOFT WRIST RESTRAINT CHECKED AND RELEASED. NO INJURY OR REDNESS NOTED. TURN AND REPOSITION Q2H. AFEBRILE. WILL CONTINUE TO MONITOR VITALS,
[2017-07-25 04:31] LABS: HEMATOCRIT 30 % (39-51); HEMOGLOBIN 9.9 g/dL (13.5-17.5); LYMPHOCYTES # (AUTO) 0.6 /CMM (0.8-4.8); LYMPHOCYTES % (AUTO) 6.2 % (20.0-44.0); MEAN CORPUSCULAR HEMOGLOBIN 29 PG (26.0-33.0); MEAN CORPUSCULAR HGB CONC 33 g/dl (31.0-36.0); MEAN CORPUSCULAR VOLUME 87 fL (80-96); MONOCYTES # (AUTO) 0.1 /CMM (0.1-1.30); MONOCYTES % (AUTO) 1.6 % (2.0-12.0); NEUTROPHILS # (AUTO) 8.3 /CMM (1.8-8.9); NEUTROPHILS % (AUTO) 92.2 % (43.0-81.0); PLATELET COUNT (AUTO) 195 /CMM (150-450); RED BLOOD CELL COUNT(AUTO) 3.44 MIL/uL (4.5-6.0)
[2017-07-25 04:47] LABS: ALBUMIN 2.5 g/dL (3.4-5.0); CALCIUM, SERUM 8.1 mg/dL (8.5-10.1); CARBON DIOXIDE 33 mmol/L (21-32); CHLORIDE 109 mmol/L (98-107); CREATININE 0.6 mg/dL (0.6-1.3); GLUCOSE 181 mg/dL (74-106); POTASSIUM 3.5 mmol/L (3.5-5.1); SODIUM SERUM 145 mmol/L (136-145); UREA NITROGEN, BLOOD 39 mg/dL (7-18)
[2017-07-25 05:41] LABS: LYMPHOCYTES % (MANUAL) 2 % (16-48); MONOCYTES % (MANUAL) 2 % (0-11.0); NEUTROPHILS % (MANUAL) 96 (42-76)
--- NOTE | 2017-07-25 07:35 | NUR ---
HEEL BOOM OPERATOR RECEIVED PATIENT FROM THE PREVIOUS SHIFT. PATIENT IS IN BED. RESTING COMFORTABLY. AFEBRILE. NO ACUTE DISTRESS. STABLE VITAL SINGS. SINUS KATARZYNA ON MONITOR. TURNED AND REPOSITIONED FOR COMFORT AND WOUND PREVENTION. WILL CONTINUE TO MONITOR AND PROVIDE CARE.
[2017-07-25] MEDS: LISINOPRIL (10MG) 10 MG TABLET PO SCH (08:05)
[2017-07-25] MEDS: ASPIRIN 81 MG TAB.CHEW PO SCH (08:11)
[2017-07-25] MEDS: PANTOPRAZOLE 40 MG VIAL IV SCH (08:11)
[2017-07-25] MEDS: VALPROIC ACID 250 MG/5 ML UDC GT SCH ×2 (08:11→21:30)
[2017-07-25] MEDS: LACTOBACILLUS RHAMNOSUS GG 1 EACH CAP.SPRINK GT SCH ×2 (08:11→16:49)
[2017-07-25] MEDS: QUETIAPINE FUMARATE 25 MG TABLET NG SCH ×3 (08:11→21:31)
[2017-07-25] MEDS: PROSOURCE / PROSTAT (PYXIS) 30 ML UDC NG SCH ×2 (08:12→16:49)
[2017-07-25] MEDS: ENOXAPARIN SODIUM 40 MG/0.4 ML DISP.SYRIN SQ SCH (08:13)
[2017-07-25 10:53] LABS: ABG BASE EXCESS 5.8 mmol/L; ABG OXYGEN SATURATION 92.5 % (92.0-98.5); ABG PCO2 33.1 mmHg (35.0-45.0); ABG PH 7.547 (7.350-7.450); AaDO2 183.1 mmHg; COHb 0.3 % (0.5-1.5); MetHb 0.7 % (0.0-1.5); O2Hb 91.6 % (94.0-97.0); PEEP,BG 5 cm H2O; SITE, ABG Left Radial; VENT MODE, BG CPAP 12
--- NOTE | 2017-07-25 11:20 | NUR ---
RT PATIENT UNABLE TO TOLERATE VENT WEANING TRIAL. PATIENT BECAME SHORT OF BREATH WITH INCREASED RR AND LOW VT. PATIENT PLACED BACK ON AC MODE. QUAN PELLETIER. DR TEE NOTIFIED Addendum: 07/25/17 at 1122 by YUKI WILSON RT Amended: Links added.
--- NOTE | 2017-07-25 15:26 | NUR ---
STEPHANIE received a call from ICU CRCapri [facility] [phone] informing SW to call pt's SNF regarding if pt. has any family since pt. has failed weaning a couple of times and might need trach placement. SW contacted pt's [facility] facility [facility] and spoke to Elder web content & social media manager who informed this SW that pt. has no family. At the facility, it is usually the IDT that makes the decisions for the patient. STEPHANIE updated ICU PATRICE [facility] regarding the aforementioned information.
[2017-07-25] MEDS: FUROSEMIDE 40 MG/4 ML VIAL IV SCH (16:49)
[2017-07-25] MEDS: FIBERSOURCE HN 1,000 ML BOTTLE GT PRN (16:49)
--- NOTE | 2017-07-25 19:17 | NUR ---
agricultural research director. initial assessment. received the pt rest on the bred, ORALLY INTUBATED. SEDATED WITH THSMINSN84CLL/KG/MIN. ETT 7.5CM,LIP 24CM,AC 14,TV 500, FIO2 40%, PEEP 5. SAT 98%. NO ACUTE DISTRESS NOTED. BIT TAPPER SHOWING S KATARZYNA. RT NARE NGT INTACT. FIBER SOURCE 50ML/H,IV RT UPPER ARM PICC LINE DIPRIVAN 20MCG/KG/MIN,HOB ELEVATED. FC PATENT. URINE DRAINING. TURN AND REPOSITION Q2H. WILL CONTINUE TO MONITOR VITALS.
[2017-07-25] MEDS: QUETIAPINE FUMARATE 100 MG TABLET NG SCH (21:31)
[2017-07-25] MEDS: ATORVASTATIN 40 MG TABLET PO SCH (21:31)
[2017-07-26] VITALS (48 sets, daily range): BP systolic 97–142; BP diastolic 47–70
--- NOTE | 2017-07-26 02:56 | NUR ---
rn nicu. am care, oral care, bed bath given. linen changed. remaining same vent setting tolerated well. sat 98%. no acute distress noted at this time, cardroom plastic card grader showing s molly, iv rt upper Arm picc line diprivan 15mcg/kg/min. ngt feeding tolerated well. fc patent urine draining, hob elevated turn and reposition q2h. lalito soft wrist restraint checked and released. no injury or redness noted. wll continue to monitor vitals.
[2017-07-26] MEDS: PROPOFOL 100 ML IV PRN ×3 (03:09→21:47)
[2017-07-26] MEDS: IV NS 0.9% 250 ML IV PRN (03:09)
[2017-07-26 04:38] LABS: HEMATOCRIT 32 % (39-51); HEMOGLOBIN 10.6 g/dL (13.5-17.5); LYMPHOCYTES # (AUTO) 0.5 /CMM (0.8-4.8); LYMPHOCYTES % (AUTO) 3.5 % (20.0-44.0); MEAN CORPUSCULAR HEMOGLOBIN 29 PG (26.0-33.0); MEAN CORPUSCULAR HGB CONC 33 g/dl (31.0-36.0); MEAN CORPUSCULAR VOLUME 88 fL (80-96); MONOCYTES # (AUTO) 0.1 /CMM (0.1-1.30); MONOCYTES % (AUTO) 0.6 % (2.0-12.0); NEUTROPHILS # (AUTO) 13.7 /CMM (1.8-8.9); NEUTROPHILS % (AUTO) 95.9 % (43.0-81.0); PLATELET COUNT (AUTO) 230 /CMM (150-450); RDW COEFFICIENT OF VARIATION 15.9 (11.5-15.0); RED BLOOD CELL COUNT(AUTO) 3.69 MIL/uL (4.5-6.0); WHITE BLOOD COUNT (AUTO) 14.3 K/uL (4.3-11.0)
[2017-07-26 04:50] LABS: CALCIUM, SERUM 7.9 mg/dL (8.5-10.1); CARBON DIOXIDE 33 mmol/L (21-32); CHLORIDE 105 mmol/L (98-107); CREATININE 0.7 mg/dL (0.6-1.3); GLUCOSE 147 mg/dL (74-106); POTASSIUM 3.7 mmol/L (3.5-5.1); SODIUM SERUM 143 mmol/L (136-145); UREA NITROGEN, BLOOD 44 mg/dL (7-18)
[2017-07-26 05:01] LABS: TRIGLYCERIDES 105 mg/dL (30-150)
[2017-07-26] MEDS: DEXAMETHASONE SOD PHOSPHATE 4 MG/ML VIAL IV SCH ×4 (05:31→23:23)
[2017-07-26 07:44] LABS: ABG BASE EXCESS 6.8 mmol/L; ABG OXYGEN SATURATION 95.4 % (92.0-98.5); ABG PCO2 36.4 mmHg (35.0-45.0); ABG PO2 83.4 mmHg (75.0-100.0); AaDO2 159.9 mmHg; COHb 0.3 % (0.5-1.5); MetHb 0.8 % (0.0-1.5); O2Hb 94.4 % (94.0-97.0); PEEP,BG 5 cm H2O; SITE, ABG Left Radial; VT, ABG 500 mL
[2017-07-26] MEDS: PANTOPRAZOLE 40 MG VIAL IV SCH (09:07)
[2017-07-26] MEDS: FUROSEMIDE 40 MG/4 ML VIAL IV SCH ×2 (09:07→16:17)
[2017-07-26] MEDS: LACTOBACILLUS RHAMNOSUS GG 1 EACH CAP.SPRINK GT SCH ×2 (09:07→16:17)
[2017-07-26] MEDS: QUETIAPINE FUMARATE 25 MG TABLET NG SCH ×3 (09:07→21:48)
[2017-07-26] MEDS: ASPIRIN 81 MG TAB.CHEW PO SCH (09:07)
[2017-07-26] MEDS: PROSOURCE / PROSTAT (PYXIS) 30 ML UDC NG SCH ×2 (09:08→16:18)
[2017-07-26] MEDS: LISINOPRIL (10MG) 10 MG TABLET PO SCH (09:08)
[2017-07-26] MEDS: VALPROIC ACID 250 MG/5 ML UDC GT SCH ×2 (09:08→21:47)
[2017-07-26] MEDS: ENOXAPARIN SODIUM 40 MG/0.4 ML DISP.SYRIN SQ SCH (09:31)
--- NOTE | 2017-07-26 09:35 | NUR ---
TITRATED THE PT'S DIPRIVAN OFF FOR SEDATION VACATION, THE PATIENT OPENS EYES, BUT DOES NOT FOLLOW COMMANDS, RESPIRATORY RATE HIGH 45 COULD NOT TOLERATE BEING OF SEDATION HE WOULD NOT SLOW HIS BREATHING. RESTARTED THE DIPRIVAN AT 5MCG.
[2017-07-26] MEDS: FIBERSOURCE HN 1,000 ML BOTTLE GT PRN (16:18)
--- NOTE | 2017-07-26 19:04 | NUR ---
WEB APPLICATIONS ADMINISTRATOR. INITIAL ASSESSMENT. RECEIVED THE PT REST ON THE BED. ORALLY INTUBATED. SEDATED WITH DIPRIVAN. ETT 7.5, LIP 24CM, TV 450, FIO2 40%. AC 14, PEEP 5. SAT 98%. NO ACUTE DISTRESS NOTED. CLINICAL PROGRAM COORDINATOR SHOWING NSR. IV RT UPPER ARM PICC LINE. DIPRIVAN 15MCG/KG/MIN,WALTER SOFT WRIST RESTRAINT CHECKED AND RELEASED. NO INJURY OR REDNESS NOTED. FC PATENT. URINE DRAINING. NGT FEEDING FIBER SOURCE 50ML/H. HOB ELEVATED. TURN AND REPOSITION Q2H. WILL CONTINUE TO MONITOR VITALS.
--- NOTE | 2017-07-26 19:55 | NUR ---
PT RECEIVED INTUBATED WITH 7.5 ETT SECURED AT 24CM AT THE LIP. PT TOLERATING VENT SETTINGS. SX'D FOR SML AMT OF THICK YELLOW SECRETIONS. VENT ALARMS SET AND AUDIBLE. AMBU BAG AT BEDSIDE. VENT PLUGGED INTO RED OUTLET. WILL CONTINUE TO MONITOR. Addendum: 07/26/17 at 6 by EUSEBIO MCCLURE RT Amended: Links added.
[2017-07-26] MEDS: QUETIAPINE FUMARATE 100 MG TABLET NG SCH (21:48)
[2017-07-26] MEDS: ATORVASTATIN 40 MG TABLET PO SCH (21:48)
[2017-07-27] VITALS (46 sets, daily range): BP systolic 95–137; BP diastolic 50–75
--- NOTE | 2017-07-27 03:07 | NUR ---
CUSTOMER ACCOUNT ADMINISTRATOR. AM CARE. ORAL CARE. BED BATH GIVEN. LINEN CHANGED. REMAINING SAME VENT SETTING TOLERATED WELL. SAT 98%. WILL CONTINUE TO MONITOR. IF RT UPPER ARM PICC LINE IV DIPRIVAN 15MCG/KG/MIN. NGT FEEDING TOLERATED WELL. WALTER SOFT WRIST RESTRAINT CHECKED AND RELEASED. NO INJURY OR REDNESS NOTED. HOB ELEVATED. FC PATENT URINE DRAINING. TURN AND REPOSITION Q2H. WILL CONTINUE TO MONITOR VITALS.
[2017-07-27] MEDS: IV NS 0.9% 250 ML IV PRN ×2 (03:59→23:47)
[2017-07-27 04:45] LABS: HEMATOCRIT 34 % (39-51); HEMOGLOBIN 10.9 g/dL (13.5-17.5); LYMPHOCYTES # (AUTO) 0.5 /CMM (0.8-4.8); LYMPHOCYTES % (AUTO) 1.9 % (20.0-44.0); MEAN CORPUSCULAR HEMOGLOBIN 29 PG (26.0-33.0); MEAN CORPUSCULAR HGB CONC 32 g/dl (31.0-36.0); MEAN CORPUSCULAR VOLUME 89 fL (80-96); MONOCYTES % (AUTO) 0.1 % (2.0-12.0); NEUTROPHILS # (AUTO) 25.9 /CMM (1.8-8.9); PLATELET COUNT (AUTO) 194 /CMM (150-450); WHITE BLOOD COUNT (AUTO) 26.5 K/uL (4.3-11.0)
[2017-07-27 04:56] LABS: CARBON DIOXIDE 33 mmol/L (21-32); CHLORIDE 106 mmol/L (98-107); CREATININE 0.7 mg/dL (0.6-1.3); GLUCOSE 142 mg/dL (74-106); MAGNESIUM 2.2 mg/dL (1.8-2.4); PHOSPHORUS 3.9 mg/dL (2.5-4.9); POTASSIUM 3.6 mmol/L (3.5-5.1); SODIUM SERUM 144 mmol/L (136-145); UREA NITROGEN, BLOOD 54 mg/dL (7-18)
[2017-07-27] MEDS: PROPOFOL 100 ML IV PRN ×3 (05:08→21:09)
[2017-07-27] MEDS: DEXAMETHASONE SOD PHOSPHATE 4 MG/ML VIAL IV SCH ×4 (05:08→23:44)
[2017-07-27 05:09] LABS: BAND % (MANUAL) 4 % (0.0-5.0); LYMPHOCYTES % (MANUAL) 2 % (16-48); NEUTROPHILS % (MANUAL) 94 (42-76)
[2017-07-27] MEDS: QUETIAPINE FUMARATE 25 MG TABLET NG SCH ×3 (08:01→21:27)
[2017-07-27] MEDS: PROSOURCE / PROSTAT (PYXIS) 30 ML UDC NG SCH ×2 (08:01→16:45)
[2017-07-27] MEDS: VALPROIC ACID 250 MG/5 ML UDC GT SCH ×2 (08:01→21:27)
[2017-07-27] MEDS: PANTOPRAZOLE 40 MG VIAL IV SCH (08:02)
[2017-07-27] MEDS: FUROSEMIDE 40 MG/4 ML VIAL IV SCH (08:02)
[2017-07-27] MEDS: LACTOBACILLUS RHAMNOSUS GG 1 EACH CAP.SPRINK GT SCH ×2 (08:02→16:45)
[2017-07-27] MEDS: LISINOPRIL (10MG) 10 MG TABLET PO SCH (08:02)
[2017-07-27] MEDS: ASPIRIN 81 MG TAB.CHEW PO SCH (08:02)
[2017-07-27] MEDS: ENOXAPARIN SODIUM 40 MG/0.4 ML DISP.SYRIN SQ SCH (08:03)
--- NOTE | 2017-07-27 08:10 | NUR ---
RT PT RECEIVED ORALLY INTUBATED WITH A 7.5 ETT SECURED 24CM AT THE LIP LINE. PT IS ON THE VENT WITH NOTED SETTINGS. VENT ALARMS ARE SET AND AUDIBLE WITH BVM BY BEDSIDE. REGISTERED ACCOUNT ADMINISTRATOR CUFF PRESSURE NOTED. VENT IS PLUGGED INTO RED OUTLET. SX SMALL WHITE THIN/THICK SECRETIONS. NO RESPIRATORY DISTRESS NOTED AT THIS TIME, WILL CONTINUE TO MONITOR. Addendum: 07/27/17 at 0955 by JOSE CARLOS LAUREN RT Amended: Links added.
[2017-07-27 09:00] LABS: ABG BASE EXCESS 5.5 mmol/L; ABG PCO2 37.9 mmHg (35.0-45.0); AaDO2 155.6 mmHg; COHb 0.2 % (0.5-1.5); MetHb 0.6 % (0.0-1.5); O2Hb 95.2 % (94.0-97.0); PEEP,BG 5 cm H2O; SITE, ABG Right Radial; VT, ABG 500 mL
--- NOTE | 2017-07-27 09:00 | NUR ---
ABG SHOWN TO DR. TEE HE ORDERS TO DECREASE THE TV TO 450. ORDERS PLACED RT AT BEDSIDE FOR CHANGES.
--- NOTE | 2017-07-27 09:04 | NUR ---
CALLED DR. WONG OFFICE AND SPOKE WITH SARINA WHO TOOK MY MESSAGE ABOUT THE REQUEST BY DR. TEE FOR TRACH PLACEMENT. SHE STATES IS IN THE OFFICE AND SEEING A PATIENT AT THIS TIME, SHE WILL PASS THE MESSAGE ON AND CALL ME BACK. DR. TEE ON THE UNIT UPDATED ABOUT THIS. Addendum: 07/27/17 at 0906 by KENDRICK HERRERA RN Amended: Links added.
--- NOTE | 2017-07-27 10:53 | NUR ---
CALLED AGAIN TO DR. WONG OFFICE, UNABLE TO SPEAK TO HIM DIRECTLY AND HAVE NOT RECVD CALL BACK. LEFT A MESSAGE WITH A DIFFERENT SUPERVISOR SMALL APPLIANCE ASSEMBLY THIS TIME FOR CONSULTATION FOR PROCEDURE REQUESTED BY DR. TEE. DR. WONG IS IN THE OFFICE SEEING PATIENTS, PER SUPERVISOR SMALL APPLIANCE ASSEMBLY AND THEY WILL PASS THE MESSAGE TO HIM.
[2017-07-27] MEDS ORDERED: VANCOMYCIN 1 GM in IV D5W 250 ML IV ONE (13:00)
--- NOTE | 2017-07-27 13:23 | NUR ---
URINE SPECIMEN AND SPUTUM CULTURE COLLECTED, CALLED LAB FOR PICKUP.
[2017-07-27] MEDS ORDERED: FEE PK DOSING 1 MIN EA MC ONE (13:27)
[2017-07-27] MEDS: MEROPENEM 1 G in IV NS 0.9% 100 ML IV SCH ×2 (14:14→21:11)
--- NOTE | 2017-07-27 14:58 | NUR ---
DR. WONG CALLS BACK ORDERS TO PUT PT NPO AFTER MIDNIGHT AND HOLD LOVENOX DOSES, SURGERY WILL BE TOMORROW, UNABLE TO GIVE A SPECIFIC TIME HE STATES HE WILL TALK WITH HIS INTERNAL AUDIT DIRECTOR.
--- NOTE | 2017-07-27 16:36 | NUR ---
DR. LAMB ORDERS TO CONTACT DR. CALDERA TO SEE IF WE CAN DO A PEG PLACEMENT ALONG WITH TOMORROW'S TRACH. I CALLED DR. CALDERA'S OFFICE AND LEFT A MESSAGE WITH TELEPHONE DIAPHRAGM ASSEMBLER FOR THE CONSULT (NO CURRENT GI CONSULT) AND A BRIEF MESSAGE THAT THE PT WILL BE GOING FOR TRACHE PLACEMENT TOMORROW.
[2017-07-27] MEDS: FIBERSOURCE HN 1,000 ML BOTTLE GT PRN (16:45)
--- NOTE | 2017-07-27 17:49 | NUR ---
MANUEL CHARGER OPERATOR WORKING WITH DR. CALDERA CALLS AND I UPDATED HER ABOUT THE PLAN FOR TRACH AND TO SEE IF WE CAN DO PEG PLACEMENT PER DR. ADONIS JOHNSON ORDERS. MANUEL STATES THAT DR. CALDERA WILL BE IN [place] TOMORROW DOING PROCEDURES AROUND 9AM. DR. WONG NEVER GAVE ME A TIME FOR THE PROCEDURE BUT JUST GAVE ORDERS TO KEEP PT NPO AND HOLD LOVENOX PRIOR TO PROCEDURE. MANUEL ACKNOWLEDGES AND STATES DR. CALDERA MAY BE IN TOMORROW EARLY TO DO THE INITIAL CONSULT AND THEN POSSIBLE THE PEG PLACEMENT DEPENDING ON THE TIME THAT THE TRACH IS PLACED WELL.
--- NOTE | 2017-07-27 19:35 | NUR ---
PLANT UTILITY PERSON. INITIAL ASSESSMENT. RECEIVED THE PT REST ON HE BED, ORALLY INTUBATED. SEDATED WITH DIPRIVAN. ETT 7.5CM, LIP 24CM, AC 14,TV 450,FIO2 40%, PEEP 5. SAT 98%. DIRECTOR CLINICAL INFORMATION SERVICES SHOWING NSR. IV RT UPPER ARM PICC LINE. DIPRIVAN 20MCG/KG/MIN, WALTER SOFT WRIST RESTRAINT CHECKED AND RELEASED. NO INJURY OR REDNESS NOTED. RT NARE NGT INTACT. FIBER SOURCE 50ML/H. HOB ELEVATED. FC PATENT. URINE DRAINING. TURN AND REPOSITION Q2H. WILL CONTINUE TO MONITOR VITALS.
[2017-07-27] MEDS: ATORVASTATIN 40 MG TABLET PO SCH (21:27)
[2017-07-27] MEDS: QUETIAPINE FUMARATE 100 MG TABLET NG SCH (21:27)
[2017-07-28] VITALS (52 sets, daily range): BP systolic 91–172; BP diastolic 4–96
[2017-07-28] MEDS: VANCOMYCIN 0.75 GM in IV D5W 250 ML IV SCH ×2 (00:19→12:38)
--- NOTE | 2017-07-28 00:59 | NUR ---
VENEER REPAIRER MACHINE. PT IS NPO. FROM 0000. FOR TRACHEOSTOMY AND GT PLACEMENT.
[2017-07-28] MEDS: DEXAMETHASONE SOD PHOSPHATE 4 MG/ML VIAL IV SCH ×4 (05:05→23:54)
[2017-07-28 05:08] LABS: HEMATOCRIT 31 % (39-51); HEMOGLOBIN 10.1 g/dL (13.5-17.5); LYMPHOCYTES # (AUTO) 0.7 /CMM (0.8-4.8); LYMPHOCYTES % (AUTO) 2.6 % (20.0-44.0); MEAN CORPUSCULAR HEMOGLOBIN 29 PG (26.0-33.0); MEAN CORPUSCULAR HGB CONC 33 g/dl (31.0-36.0); MEAN CORPUSCULAR VOLUME 89 fL (80-96); MONOCYTES # (AUTO) 0.1 /CMM (0.1-1.30); MONOCYTES % (AUTO) 0.4 % (2.0-12.0); NEUTROPHILS # (AUTO) 25.1 /CMM (1.8-8.9); PLATELET COUNT (AUTO) 195 /CMM (150-450); RDW COEFFICIENT OF VARIATION 16.8 (11.5-15.0); RED BLOOD CELL COUNT(AUTO) 3.51 MIL/uL (4.5-6.0); WHITE BLOOD COUNT (AUTO) 25.9 K/uL (4.3-11.0)
[2017-07-28 05:19] LABS: INR 1.1 (0.87-1.13); PROTHROMBIN TIME 11.4 SECS (9.5-12.7)
[2017-07-28 05:25] LABS: CALCIUM, SERUM 8.1 mg/dL (8.5-10.1); CARBON DIOXIDE 35 mmol/L (21-32); CHLORIDE 107 mmol/L (98-107); CREATININE 0.7 mg/dL (0.6-1.3); GLUCOSE 132 mg/dL (74-106); MAGNESIUM 2.3 mg/dL (1.8-2.4); PHOSPHORUS 3.7 mg/dL (2.5-4.9); POTASSIUM 3.8 mmol/L (3.5-5.1); SODIUM SERUM 144 mmol/L (136-145); UREA NITROGEN, BLOOD 59 mg/dL (7-18)
[2017-07-28] MEDS ORDERED: HYDROMORPHONE INJ 2 MG/ML DISP.SYRIN ONE (05:57)
--- NOTE | 2017-07-28 06:42 | NUR ---
MITER CUTTER. RADIOLOGY CALLED FOR CRITICAL X RAY RESULT. . PAGED DR VEGA.
--- NOTE | 2017-07-28 07:00 | NUR ---
JEWELLERY DESIGNER- INITIAL NOTE RECEIVED PT SEDATED, ON DIPRIVAN GTT AT 15 MCG/MIN. PT ORALLY INTUBATED, 7.5 CM, 24 @ THE LIP. BEDSIDE MONITOR REVEALS SINUS KATARZYNA- SINUS RHYTHM. RIGHT NARE NGT CURRENTLY CLAMPED. CARLTON CATHETER DRAINING TO GRAVITY CLEAR, YELLOW URINE. ARNULFO PICC LINE RUNNING DIPRIVAN AND NS @ TKO. ER , DR. GOOD AT BEDSIDE FOR CHEST TUBE INSERTION. WILL CONTINUE TO MONITOR.
--- NOTE | 2017-07-28 07:45 | NUR ---
COMMERCIAL ILLUSTRATOR. ER DR GOOD RT SIDE CHEST TUBE PLACEMENT DONE.. DURING PROCEDURE NO COMPLICATION NOTED. S/P X RAY DONE. ENDORSE TO DAY SHIFT.SURGERY POST POND. PER ER DR GOOD VENT PEEP OFF.
--- NOTE | 2017-07-28 07:59 | NUR ---
BASE WAD OPERATOR ADJUSTER- INFORMED ER , DR. GOOD OF CHEST-XRAY RESULT POST CHEST TUBE INSERTION. MD AWARE. WILL CONTINUE TO MONITOR.
--- NOTE | 2017-07-28 08:30 | NUR ---
VICTORIAN LITERATURE PROFESSOR- DR. TEE CALLED. UPDATED MD ON PT'S STATUS. MD AWARE PT'S CHEST X-RAY THIS MORNING REVEALED RIGHT-SIDED PNEUMOTHORAX AND CHEST TUBE WAS INSERTED BY ER MD. VITAL SIGNS STABLE DURING PROCEDURE AND AT THIS TIME. PER MD, OK FOR PT TO PROCEED WITH TRACH/PEG SURGERY TODAY, NO NEED TO POSTPONE SURGERY.
--- NOTE | 2017-07-28 08:40 | NUR ---
COMPOSITION TILE LAYER- DR. CALDERA AT BEDSIDE. INFORMED MD DR. TEE STATES PATIENT IS STABLE FOR TRACH/ PEG PLACEMENT TODAY. DR. CALDERA CALLED DR. ADONIS LOUISE AND DR. TEE VIA TELEPHONE AND OBTAINED VERBAL CONSENT FOR BOTH TRACH/ PEG PLACEMENT. BOTH MDS TO SIGN CONSENT. WILL CONTINUE TO MONITOR.
[2017-07-28] MEDS: ASPIRIN 81 MG TAB.CHEW PO SCH (09:00)
[2017-07-28] MEDS: QUETIAPINE FUMARATE 25 MG TABLET NG SCH ×3 (09:00→21:02)
[2017-07-28] MEDS: LACTOBACILLUS RHAMNOSUS GG 1 EACH CAP.SPRINK GT SCH ×2 (09:00→16:51)
[2017-07-28] MEDS: PROSOURCE / PROSTAT (PYXIS) 30 ML UDC NG SCH ×2 (09:00→16:51)
[2017-07-28] MEDS: LISINOPRIL (10MG) 10 MG TABLET PO SCH (09:00)
[2017-07-28] MEDS: VALPROIC ACID 250 MG/5 ML UDC GT SCH ×2 (09:00→20:09)
[2017-07-28] MEDS: ENOXAPARIN SODIUM 40 MG/0.4 ML DISP.SYRIN SQ SCH (09:00)
[2017-07-28] MEDS: MEROPENEM 1 G in IV NS 0.9% 100 ML IV SCH ×2 (09:09→20:08)
[2017-07-28] MEDS: PANTOPRAZOLE 40 MG VIAL IV SCH (09:09)
[2017-07-28] MEDS ORDERED: ETOMIDATE 2 MG/ML VIAL ONE ×2 (09:21)
--- NOTE | 2017-07-28 09:45 | NUR ---
AUTHORIZATION REP- DR. CALDERA INSERTED PEG TUBE AT BEDSIDE. PT TOLERATED PROCEDURE WELL. PER MD, OK TO RESUME TUBE FEEDING IN 8 HOURS. PT NPO EXCEPT MEDS FOR NOW. WILL CONTINUE TO MONITOR.
--- NOTE | 2017-07-28 09:50 | NUR ---
OLAP DEVELOPER- SEDATION VACATION DIPRIVAN WILL CONTINUE TO MONITOR. Addendum: 07/28/17 at 1700 by COLE SON RN 0950- TITRATED DIPRIVAN PER POLICY FOR SEDATION VACATION. PT ABLE TO OPEN EYES BUT DOES NOT FOLLOW COMMANDS. PT TACHYPNEIC, DIPRIVAN RESTARTED PER POLICY. WILL CONTINUE TO MONITOR.
[2017-07-28] MEDS: PROPOFOL 100 ML IV PRN ×3 (10:02→20:08)
[2017-07-28] MEDS ORDERED: LIDOCAINE 2%-EPI 1:200,000 20 ML VIAL IJ ONE (18:15)
[2017-07-28] MEDS ORDERED: SUCCINYLCHOLINE CHLORIDE 20 MG/ML VIAL ONE (18:18)
--- NOTE | 2017-07-28 18:30 | NUR ---
DIRECT MAIL MANAGER REPORT RECEIVED FROM COLE GLASS. PT IN OR AT THIS TIME FOR TRACHEOSTOMY.
--- NOTE | 2017-07-28 18:30 | NUR ---
NEWBORN HEARING SCREENER- PT TO OR FOR TRACHEOSTOMY PLACEMENT. VITAL SIGNS STABLE. REPORT GIVEN TO ROMAN GLASS FOR CONTINUITY OF CARE.
--- NOTE | 2017-07-28 19:05 | NUR ---
PER DIEM REGISTERED NURSE REPORT ENDORSED TO MARITZA GLASS FOR GABRIEL. PT IS BACK FROM OR WITH NEW TRACH, STABLE AT THIS TIME.
--- NOTE | 2017-07-28 19:30 | NUR ---
RN ADVANCED NOTES RECEIVED PT POST-OP TRACH PLACEMENT FROM OR, TRACH SECURED WITH SUTURES, MILD BLEEDING NOTED AT TRACH SITE. PT IS SEDATED ON DIPRIVAN AT 15 MCG/KG/MIN. TELE READS SR 70s. ON VENT VIA SHILEY 8, AC 14, TV 450, FIO2 40%, PEEP 0, DAX FAIR. O2 SAT AT 92%, FIO2 INCREASED TO 50%. CHEST TUBE IN PLACE AT RIGHT LATERAL UPPER CHEST, WATER SEAL ATRIUM, NO BUBBLING NOTED, CONNECT TO VACUUM AT 20 mmHg AND SECURED TO FLOOR. GT IN PLACE, CLAMPED, NO RESIDUAL. CARLTON CATH PRESENT, DRAINING WELL TO GRAVITY. ARNULFO PICC RUNNING NS AT TKO AND DIPRIVAN. BILATERAL SOFT WRIST RESTRAINTS PRESENT FOR PATIENT SAFETY. HOB ELEVATED, SIDE RAILS X3, BED LOW AND LOCKED. PT TURNED AND REPOSITIONED, EXTREMITIES OFFLOADED.
[2017-07-28] MEDS: QUETIAPINE FUMARATE 100 MG TABLET NG SCH (21:01)
[2017-07-28] MEDS: ATORVASTATIN 40 MG TABLET PO SCH (21:01)
[2017-07-29] VITALS (47 sets, daily range): BP systolic 87–151; BP diastolic 45–78
[2017-07-29] MEDS: FIBERSOURCE HN 1,000 ML BOTTLE GT PRN (00:36)
[2017-07-29] MEDS: VANCOMYCIN 0.75 GM in IV D5W 250 ML IV SCH ×2 (00:36→12:49)
--- NOTE | 2017-07-29 04:00 | NUR ---
AIRLINE RADIO OPERATOR NOTES PT NOTED WITH SUBCUTANEOUS EMPHYSEMA AT RIGHT UPPER CHEST. NO BUBBLING NOTED AT WATER SEAL ON CHEST TUBE CANISTER. NO AIR LEAKS NOTED AT TRACH SITE. STAT CXR ORDERED TO VERIFY CHEST TUBE AND TRACH PLACEMENT. RESULTS SHOW PROPER POSITION FOR BOTH. PT IS ASYMPTOMATIC.
[2017-07-29] MEDS: IV NS 0.9% 250 ML IV PRN (04:20)
[2017-07-29 05:08] LABS: HEMATOCRIT 31 % (39-51); HEMOGLOBIN 10.2 g/dL (13.5-17.5); LYMPHOCYTES # (AUTO) 0.4 /CMM (0.8-4.8); LYMPHOCYTES % (AUTO) 2.5 % (20.0-44.0); MEAN CORPUSCULAR HEMOGLOBIN 29 PG (26.0-33.0); MEAN CORPUSCULAR HGB CONC 33 g/dl (31.0-36.0); MEAN CORPUSCULAR VOLUME 89 fL (80-96); MONOCYTES % (AUTO) 0.3 % (2.0-12.0); NEUTROPHILS # (AUTO) 15.3 /CMM (1.8-8.9); NEUTROPHILS % (AUTO) 97.2 % (43.0-81.0); PLATELET COUNT (AUTO) 167 /CMM (150-450); RDW COEFFICIENT OF VARIATION 17.7 (11.5-15.0); RED BLOOD CELL COUNT(AUTO) 3.46 MIL/uL (4.5-6.0); WHITE BLOOD COUNT (AUTO) 15.7 K/uL (4.3-11.0)
[2017-07-29 05:24] LABS: CALCIUM, SERUM 8.2 mg/dL (8.5-10.1); CARBON DIOXIDE 33 mmol/L (21-32); CHLORIDE 108 mmol/L (98-107); CREATININE 0.7 mg/dL (0.6-1.3); GLUCOSE 149 mg/dL (74-106); POTASSIUM 3.9 mmol/L (3.5-5.1); SODIUM SERUM 144 mmol/L (136-145); UREA NITROGEN, BLOOD 55 mg/dL (7-18)
[2017-07-29] MEDS: DEXAMETHASONE SOD PHOSPHATE 4 MG/ML VIAL IV SCH ×3 (05:31→17:02)
[2017-07-29 05:54] LABS: BAND % (MANUAL) 2 % (0.0-5.0); LYMPHOCYTES % (MANUAL) 2 % (16-48); NEUTROPHILS % (MANUAL) 96 (42-76)
--- NOTE | 2017-07-29 07:30 | NUR ---
ROLLED GLASS CROSSCUTTER BEDSIDE REPORT TAKEN FROM [facility] NURSE MARITZA RN. PT OFF SEDATION, EYES OPEN, DOES NOT FOLLOW COMMANDS. PT WITHDRAWS AND GRIMACES TO PAINFUL STIMULI IN BUE AND BLE. PT HAS TRACH, SMALL AMOUNT OF BLEEDING AT TRACH SITE, PT ON AC VENT SETTING WITH FIO2 50% TOLERATING WELL, SPO2 99%, WALTER LUNG SOUNDS RHONCHI BUT DIMINISHED. PT HAS PEG AND ON FIBERSOURCE AT 50 ML/HR PT HAS RESIDUAL OF 50ML, PT TOLERATING WELL. PT HAS CARLTON CATHETER INTACT AND DRAINING SMALL AMOUNT OF YELLOW URINE. BUE AND BLE PULSES PRESENT AND PALPABLE. PT HAS SKIN TEAR ON LEFT ELBOW AND SACRAL REDNESS. PROPOFOL RESTARTED AT 10MCG/KG/MIN FOR COMFORT. CHEST TUBE INTACT AND IN PLACE VERIFIED WITH CHARGE NURSE ROMIE RN. PT HAS SUBCUTANEOUS EMPHYSEMA, CHARGE NURSE ROMIE AWARE. VITALS STABLE. NO SIGNS OF ACUTE DISTRESS AT THIS TIME. WILL CONTINUE TO MONITOR.
[2017-07-29] MEDS: MEROPENEM 1 G in IV NS 0.9% 100 ML IV SCH ×2 (09:50→21:30)
[2017-07-29] MEDS: ASPIRIN 81 MG TAB.CHEW PO SCH (09:50)
[2017-07-29] MEDS: VALPROIC ACID 250 MG/5 ML UDC GT SCH ×2 (09:50→21:28)
[2017-07-29] MEDS: PANTOPRAZOLE 40 MG VIAL IV SCH (09:50)
[2017-07-29] MEDS: LACTOBACILLUS RHAMNOSUS GG 1 EACH CAP.SPRINK GT SCH ×2 (09:51→16:24)
[2017-07-29] MEDS: LISINOPRIL (10MG) 10 MG TABLET PO SCH (09:51)
[2017-07-29] MEDS: PROSOURCE / PROSTAT (PYXIS) 30 ML UDC NG SCH ×2 (09:51→16:24)
[2017-07-29] MEDS: QUETIAPINE FUMARATE 25 MG TABLET NG SCH ×3 (09:51→21:29)
[2017-07-29] MEDS: ENOXAPARIN SODIUM 40 MG/0.4 ML DISP.SYRIN SQ SCH (09:55)
--- NOTE | 2017-07-29 10:30 | NUR ---
GAS PLANT TECHNICIAN PT HAD BM, PT CLEANED AND SKIN CHECK DONE WITH CHARGE NURSE ROMIE RN, SKIN INTACT. VITALS STABLE. NO SIGNS OF ACUTE DISTRESS AT THIS TIME. WILL CONTINUE TO MONITOR.
--- NOTE | 2017-07-29 12:56 | NUR ---
FIRST CALENDER WORKER DR TEE AT BEDSIDE ASSESSING PT AND UDPATED ON PT STATUS. MD AWARE OF PT SUBCUTANEOUS EMPHYSEMA AND HR 50S. NO NEW ORDERS AT THIS TIME. VITALS STABLE. WILL CONTINUE TO MONITOR.
--- NOTE | 2017-07-29 15:20 | NUR ---
RN X RAY PT BATHED AND CLEANED, LINEN CHANGE DONE. SKIN CHECK DONE, SKIN INTACT, NEW MEPILEX APPLIED. ALL LINES TRACED. VITALS STABLE. NO SIGNS OF ACUTE DISTRESS AT THIS TIME. PT SEDATED, OPENS EYES SPONTANEOUSLY, MOVES BUE AND GRIMACES, WRIST RESTRAINTS REAPPLIED. WILL CONTINUE TO MONITOR.
[2017-07-29] MEDS: PROPOFOL 100 ML IV PRN (17:03)
--- NOTE | 2017-07-29 19:25 | NUR ---
TWISTING FRAME CHANGER BEDSIDE REPORT GIVEN TO [facility] NURSE DINH GLASS. PT SEDATED AND HAS TRACH ON AC VENT SETTING, PT TOLERATING WELL. ALL LINES TRACED. ALL DRIPS VERIFIED. VITALS STABLE. PT CLEAN AND DRY. NO SIGNS OF ACUTE DISTRESS AT THIS TIME.
[2017-07-29] MEDS: QUETIAPINE FUMARATE 100 MG TABLET NG SCH (21:29)
[2017-07-29] MEDS: ATORVASTATIN 40 MG TABLET PO SCH (21:29)
[2017-07-30] VITALS (38 sets, daily range): BP systolic 87–185; BP diastolic 44–103
[2017-07-30] MEDS: IV NS 0.9% 250 ML IV PRN
[2017-07-30] MEDS: PROPOFOL 100 ML IV PRN
[2017-07-30] MEDS ORDERED: VANCOMYCIN 1 GM in IV D5W 250 ML IV SCH (01:00)
[2017-07-30] MEDS: DEXAMETHASONE SOD PHOSPHATE 4 MG/ML VIAL IV SCH ×5 (05:05→23:13)
[2017-07-30 05:07] LABS: BASOPHILS % (AUTO) 0.4 % (0.0-2.0); HEMATOCRIT 28 % (39-51); HEMOGLOBIN 9.2 g/dL (13.5-17.5); LYMPHOCYTES # (AUTO) 0.5 /CMM (0.8-4.8); LYMPHOCYTES % (AUTO) 5.5 % (20.0-44.0); MEAN CORPUSCULAR HEMOGLOBIN 29 PG (26.0-33.0); MEAN CORPUSCULAR HGB CONC 33 g/dl (31.0-36.0); MEAN CORPUSCULAR VOLUME 88 fL (80-96); MONOCYTES # (AUTO) 0.1 /CMM (0.1-1.30); MONOCYTES % (AUTO) 0.9 % (2.0-12.0); NEUTROPHILS # (AUTO) 8.9 /CMM (1.8-8.9); NEUTROPHILS % (AUTO) 93.2 % (43.0-81.0); PLATELET COUNT (AUTO) 155 /CMM (150-450); RDW COEFFICIENT OF VARIATION 17.8 (11.5-15.0); RED BLOOD CELL COUNT(AUTO) 3.18 MIL/uL (4.5-6.0); WHITE BLOOD COUNT (AUTO) 9.5 K/uL (4.3-11.0)
[2017-07-30 05:15] LABS: CALCIUM, SERUM 7.8 mg/dL (8.5-10.1); CARBON DIOXIDE 33 mmol/L (21-32); CHLORIDE 108 mmol/L (98-107); CREATININE 0.7 mg/dL (0.6-1.3); GLUCOSE 162 mg/dL (74-106); MAGNESIUM 2.3 mg/dL (1.8-2.4); PHOSPHORUS 2.5 mg/dL (2.5-4.9); POTASSIUM 3.9 mmol/L (3.5-5.1); SODIUM SERUM 142 mmol/L (136-145); UREA NITROGEN, BLOOD 63 mg/dL (7-18)
[2017-07-30 06:16] LABS: LYMPHOCYTES % (MANUAL) 6 % (16-48); MONOCYTES % (MANUAL) 1 % (0-11.0); NEUTROPHILS % (MANUAL) 93 (42-76)
--- NOTE | 2017-07-30 06:50 | NUR ---
SILVER PLATER PT COMFORTABLE ON DIPRIVAN AT 10 MCG/KG/MIN; BLSWR REMAIN IN PLACE FOR PT SAFETY. Addendum: 07/30/17 at 0656 by DINH HILLIARD RN PT REACHES FOR TUBINGS WHEN RESTRAINTS RELEASED.
--- NOTE | 2017-07-30 08:30 | NUR ---
RN NOTES DIPRIVAN TURNED OFF. VS STABLE, NO S/SX OF RESPIRATORY DISTRESS. AWAKE, OPENS EYES. VS STABLE AT THIS TIME. WILL CONTINUE TO MONITOR CLOSELY
[2017-07-30] MEDS: MEROPENEM 1 G in IV NS 0.9% 100 ML IV SCH ×2 (09:12→21:41)
[2017-07-30] MEDS: ASPIRIN 81 MG TAB.CHEW PO SCH (09:13)
[2017-07-30] MEDS: PANTOPRAZOLE 40 MG VIAL IV SCH (09:13)
[2017-07-30] MEDS: VALPROIC ACID 250 MG/5 ML UDC GT SCH ×2 (09:13→21:40)
[2017-07-30] MEDS: LISINOPRIL (10MG) 10 MG TABLET PO SCH (09:13)
[2017-07-30] MEDS: QUETIAPINE FUMARATE 25 MG TABLET NG SCH ×3 (09:13→21:41)
[2017-07-30] MEDS: LACTOBACILLUS RHAMNOSUS GG 1 EACH CAP.SPRINK GT SCH ×2 (09:13→16:33)
[2017-07-30] MEDS: PROSOURCE / PROSTAT (PYXIS) 30 ML UDC NG SCH ×2 (09:14→16:32)
[2017-07-30] MEDS: ENOXAPARIN SODIUM 40 MG/0.4 ML DISP.SYRIN SQ SCH (09:19)
[2017-07-30 10:34] LABS: ABG BASE EXCESS 5.9 mmol/L; ABG PCO2 31.6 mmHg (35.0-45.0); ABG PH 7.565 (7.350-7.450); ABG PO2 77.2 mmHg (75.0-100.0); AaDO2 171.7 mmHg; COHb 0.3 % (0.5-1.5); MetHb 1.3 % (0.0-1.5); O2Hb 93.5 % (94.0-97.0); PEEP,BG 0 cm H2O; SITE, ABG Right Radial; VT, ABG 450 mL
[2017-07-30] MEDS: LORAZEPAM INJ 2 MG/ML VIAL IV PRN ×3 (11:11→21:42)
[2017-07-30] MEDS: ACETAMINOPHEN 325 MG TABLET PO PRN (16:31)
[2017-07-30] MEDS: FIBERSOURCE HN 1,000 ML BOTTLE GT PRN ×2 (17:42)
--- NOTE | 2017-07-30 18:10 | NUR ---
RN NOTES PT RESTING IN BED COMFORTABLY, NO ACUTE CHANGE IN CONDITION NOTED. OPENS EYES AT TIMES, UNABLE TO FOLLOW COMMANDS. TRACHE MIDLINE, TOLERATING CURRENT [facility] VENT SETTINGS WELL. NO SOB NOTED, NO RESPIRATORY DISTRESS NOTED. FC PATENT, DRAINING SHARITA COLOR URINE. BED BATH GIVEN, KEPT COMFORTABLE, SAFETY MAIANTAINED, CONTINUOSLY MONITORED. ALL DUE MEDS GIVEN.
[2017-07-30] MEDS: ATORVASTATIN 40 MG TABLET PO SCH (21:41)
[2017-07-30] MEDS: QUETIAPINE FUMARATE 100 MG TABLET NG SCH (21:41)
[2017-07-30] MEDS: hydrALAZINE HCL IV 20 MG VIAL IV PRN (21:43)
--- NOTE | 2017-07-30 22:00 | NUR ---
SUGAR COATING HAND - REC'D PT. W/ S/P TRACH. SITE HAS SMALL AMT. OF SANGUINEOUS DRAINAGE NOTED. VENT SETTINGS : AC-14,TV-450, 40% & PEEP 5. O2 SATS ARE >98%. LUNG JJ ARE RHONCHUS W/CRACKLES. PT. SX'D FREQUENTLY. AFEBRILE. PT. HAS HTN. SBP'S ARE IN THE 180'S. HYDRALAZINE 10MG/IVP & ATIVAN ONE MG/IVP WERE ADM. AT 21:40 PM HR/NSR W/PVC'S. NO DISTRESS NOTED. CARLTON CATH TO GRAVITY. COMPUTER NUMERICAL CONTROL PROGRAMMER FATUMA WAS PHONED RE: POSSIBLE TRANSFER OUT OF ICU. SINCE PT.IS HYPERTENSIVE & HAS CT (20 CM WATER SEAL), COMPUTER NUMERICAL CONTROL PROGRAMMER DECIDED TO KEEP PT. IN ICU. HOUSE SUPER INFORMED. PT.IS PEGGED W/FIBERSOURCE INFUSING AT 50CC/HR. 60 CC RESIDUALS NOTED. RUE PICC LINE HAS ALL PORTS PATENT TO FLUSH, BUT ALITTLE SLUGGISH TO PUSH FLUSHES. 0.9%NS AT TKO INFUSING/ABX'S. SCD'S TO BLES. CONT.POC.
[2017-07-31] VITALS (39 sets, daily range): BP systolic 110–198; BP diastolic 52–104
[2017-07-31 05:04] LABS: HEMATOCRIT 30 % (39-51); HEMOGLOBIN 10.1 g/dL (13.5-17.5); LYMPHOCYTES # (AUTO) 0.4 /CMM (0.8-4.8); LYMPHOCYTES % (AUTO) 4.2 % (20.0-44.0); MEAN CORPUSCULAR HEMOGLOBIN 29 PG (26.0-33.0); MEAN CORPUSCULAR HGB CONC 34 g/dl (31.0-36.0); MEAN CORPUSCULAR VOLUME 87 fL (80-96); MONOCYTES # (AUTO) 0.2 /CMM (0.1-1.30); NEUTROPHILS # (AUTO) 8.9 /CMM (1.8-8.9); NEUTROPHILS % (AUTO) 93.8 % (43.0-81.0); PLATELET COUNT (AUTO) 165 /CMM (150-450); RDW COEFFICIENT OF VARIATION 17.3 (11.5-15.0); RED BLOOD CELL COUNT(AUTO) 3.44 MIL/uL (4.5-6.0); WHITE BLOOD COUNT (AUTO) 9.4 K/uL (4.3-11.0)
[2017-07-31 05:20] LABS: CARBON DIOXIDE 33 mmol/L (21-32); CHLORIDE 107 mmol/L (98-107); CREATININE 0.7 mg/dL (0.6-1.3); GLUCOSE 132 mg/dL (74-106); POTASSIUM 3.7 mmol/L (3.5-5.1); SODIUM SERUM 145 mmol/L (136-145); UREA NITROGEN, BLOOD 63 mg/dL (7-18)
[2017-07-31] MEDS: DEXAMETHASONE SOD PHOSPHATE 4 MG/ML VIAL IV SCH ×4 (05:58→23:23)
--- NOTE | 2017-07-31 08:00 | NUR ---
ICU/RN AM SHIFT INITIAL NOTES RECEIVED PT ASLEEP IN BED, PT OPEN EYES, THEN SLEPT AGAIN, NO ACUTE CHANGE OF CONDITION OR GRIMACING NOTED, NO FEVER. ON VENTILATOR SET PRESCRIBED, SATURATING @ 99%, LUNG SOUNDS NOTED WITH CRACKLES/RHONCHI, SUCTIONED FOR AIRWAY CLEARANCE. RESPIRATIONS EVEN & UNLABORED. NOTED WITH NEW TRACHE, NOTICE SOME REDNESS. ON TELE WITH SINUS RHYTHM WITH PVCs, HR 60. PICC LINE ON TKO, PATENT WITH NO S/S OF INFECTION. CHEST TUBE ON RIGHT LUNG INTACT ON NEGATIVE (-) 20CM PLUERA VAC, CONTINUOUS SUCTIONING, GT FEEDING ON GOING @ 50CC/HR, NOTED WITH 50CC RESIDUAL, FLUSHED, PATENT. CARLTON CATHETER INTACT WITH YELLOW URINE. BILATERAL SOFT RESTRAINTS IN PLACED, REMOVED TO CHECK FOR CIRCULATION AND COMFORT, THEN PALCED BACK. PT IS COMFORTABLE AT THIS TIME, SCHEDULED AM MEDS TO BE GIVEN.
[2017-07-31] MEDS: MEROPENEM 1 G in IV NS 0.9% 100 ML IV SCH ×2 (09:00→20:55)
[2017-07-31] MEDS: QUETIAPINE FUMARATE 25 MG TABLET NG SCH ×3 (09:02→21:48)
[2017-07-31] MEDS: PANTOPRAZOLE 40 MG VIAL IV SCH (09:02)
[2017-07-31] MEDS: VALPROIC ACID 250 MG/5 ML UDC GT SCH ×2 (09:02→20:56)
[2017-07-31] MEDS: ASPIRIN 81 MG TAB.CHEW PO SCH (09:02)
[2017-07-31] MEDS: LACTOBACILLUS RHAMNOSUS GG 1 EACH CAP.SPRINK GT SCH ×2 (09:02→17:46)
[2017-07-31] MEDS: LISINOPRIL (10MG) 10 MG TABLET PO SCH (09:03)
[2017-07-31] MEDS: PROSOURCE / PROSTAT (PYXIS) 30 ML UDC NG SCH ×2 (09:27→17:47)
--- NOTE | 2017-07-31 10:38 | NUR ---
ICU/RN ROUNDS - DR. LAMB UPDATED PT'S CONDITION. PT SEEN & EXAMINED BY DR. LAMB. WITH NEW ORDER RECEIVED, NOTED AND CARRIED. MONITORING CONTINUED.
[2017-07-31] MEDS: HYDROCODONE/APAP 5/325MG 1 EACH TABLET GT PRN (11:23)
[2017-07-31] MEDS: ENOXAPARIN SODIUM 40 MG/0.4 ML DISP.SYRIN SQ SCH (11:24)
--- NOTE | 2017-07-31 11:47 | NUR ---
ICU/RN ROUNDS - DR. LOPEZ UPDATED PT'S CONDITION. PT SEEN & EXAMINED BY DR. LOPEZ. PER CHARGE NURSE MD CORNELIA CAMARENA. NOTED.
--- NOTE | 2017-07-31 14:10 | NUR ---
BERTRAM RN, patient received to room 102 per bed skin w/d color good resp unlabored no sob noted vent /trach ac 14 fio2 40% TV 450 GT feeding with fibersource at 50ml/hr residual at 10ml obtained , picc line on right upper arm with no signs of redness or swelling noted right chest tube to lower cont. suction with draining small amt. to gravity both feet on edema trace and both arms edema noted will continue to assess and evaluate
--- NOTE | 2017-07-31 14:30 | NUR ---
ICU/CARRY OUT CLERK TO [facility] - ROOM 102 REPORT GIVEN TO CHARGE NURSE, PT TRANSFERRED TO [facility] VIA BED, ACCOMPANIED BY (2) RTs AND MYSELF. ENDORSED TO CHARGE NURSE TO CONTINUE CARE.
--- NOTE | 2017-07-31 16:00 | NUR ---
BERTRAM RN ,vitals taken and recorded patient turned from side to side and made patient comfortable
[2017-07-31] MEDS: IV NS 0.9% 250 ML IV PRN (17:49)
[2017-07-31] MEDS: FIBERSOURCE HN 1,000 ML BOTTLE GT PRN (17:50)
--- NOTE | 2017-07-31 18:00 | NUR ---
Paulina RN , condition unchanged from previous assessment will continue to assess and evaluate chest tube out put 20ml of serosanguinous draning to gravity will continue to assess and evaluate made patient comfortable
--- NOTE | 2017-07-31 20:00 | NUR ---
RN INITIAL NOTES RECEIVED PT AWAKE ON BED, NON-VERBAL, UNABLE TO FOLLOW COMMANDS. CURRENTLY ON VENT WITH SETTINGS AC 14, TV450, 40% FIO2, PEEP 5, SATURATING WELL, APPEARS TACHYPNEIC. RIGHT CHEST TUBE NOTED; SUPPOSED TO BE ON LOW CONTINUOUS SUCTION BUT WAS NOT CONNECTED UPON INSPECTION DURING SHIFT CHANGE REPORT WITH AM RN. UPON CHANGING THE PATIENT'S POSITION, LARGE RIGHT CHEST EMPHYSEMA, NO RIGHT LUNG SOUND CAN BE AUSCULTATED, WATER SEAL IN CHEST TUBE SHOWS BUBBLES EVERY TIME PATIENT TAKES A BREATH. CHEST TUBE DRESSING IS INTACT, CHEST TUBE APPEARS TO HAVE NO HOLES. ORDERED STAT CHEST XR AND CALLED RT AND ICU MANNEQUIN MAKER TO ASSESS THE PATIENT. FULL VITALS TAKEN. WILL CALL MD FOR RESULTS OF CHEST XR AND CHANGE IN PATIENT CONDITION. ON GTUBE FEEDING OF FIBERSOURCE @ 50MLS/HR, NO RESIDUALS, TOLERATING WELL. CARLTON CATH INTACT. RIGHT UPPER ARM FLUSHED AND PATENT, NO S/S OF INFILTRATION/INFECTION, DRESSING CDI. BED LOW AND LOCKED, SIDERAILS UP. BILATERAL SOFT WRIST RESTRAINTS IN PLACE FOR SAFETY. WILL CONTINUE TO MONITOR CLOSELY
[2017-07-31] MEDS: LORAZEPAM INJ 2 MG/ML VIAL IV PRN (20:01)
[2017-07-31 20:12] LABS: ABG BASE EXCESS 3.7 mmol/L; ABG OXYGEN SATURATION 98.7 % (92.0-98.5); ABG PCO2 24.5 mmHg (35.0-45.0); ABG PH 7.613 (7.350-7.450); MetHb 0.8 % (0.0-1.5); O2Hb 97.9 % (94.0-97.0); PEEP,BG 5 cm H2O; SITE, ABG Left Radial; VT, ABG 450 mL
--- NOTE | 2017-07-31 20:50 | NUR ---
RN NOTES CALLED [facility] TO TALK TO ON-CALL REHAB/PRE VOCATIONAL COUNSELOR FATUMA. NOTIFIED HER OF PATIENT'S CURRENT CONDITION: LARGE RIGHT CHEST EMPHYSEMA - CHEST XR SHOWING MARKEDLY WORSENING RIGHT SUBCUTANEOUS EMPHYSEMA; CHEST TUBE SHOWING BUBBLES WHICH MIGHT INDICATE A LEAK; AND CURRENT ABG PH 7.6, CO2 24.5, O2 > 400 WITH VENT FIO2 100%. PER AARON BURRIS, TRANSFER PATIENT TO ICU AND CALL ER MD TO ASSESS CHEST TUBE LEAK
--- NOTE | 2017-07-31 21:00 | NUR ---
RN NOTES CALLED ER TO ASK ER MD TO ASSESS PATIENT'S CHEST TUBE FOR LEAK. ER MD IS CURRENTLY UNAVAILABLE. WILL CALL MD AGAIN LATER.
--- NOTE | 2017-07-31 21:10 | NUR ---
RN NOTES TRANSFERRED THE PT TO ICU BED 252
[2017-07-31] MEDS ORDERED: hydrALAZINE HCL IV 20 MG VIAL ONE (21:44)
[2017-07-31] MEDS: hydrALAZINE HCL IV 20 MG VIAL IV PRN (21:48)
[2017-07-31] MEDS: QUETIAPINE FUMARATE 100 MG TABLET NG SCH (21:48)
[2017-07-31] MEDS: ATORVASTATIN 40 MG TABLET PO SCH (21:48)
--- NOTE | 2017-07-31 22:00 | NUR ---
RN NOTES CALLED ER TO REQUEST ER MD TO CHECK PATIENT'S CHEST TUBE FOR LEAK. MD IS CURRENTLY UNAVAILABLE
--- NOTE | 2017-07-31 23:13 | NUR ---
RN NOTES NOTIFIED ON-CALL AARON BURRIS ABOUT PT CURRENT STATUS. TOLD HER THAT ER MD IS UNABLE TO ASSESS PT'S CHEST TUBE OF NOW BUT REMIND HIM AGAIN LATER ON. ALSO INFORMED HER THAT PATIENT IS TACHYPNEIC WITH RR 40'S, GIVEN THE ATIVAN 1MG IV Q4H BUT HAS NO IV PAIN MEDICATION. AARON BURRIS ORDERED MORPHINE 2MG IV Q6H
[2017-07-31] MEDS ORDERED: MORPHINE SULFATE INJ 2 MG/ML DISP.SYRIN ONE (23:20)
[2017-07-31] MEDS: MORPHINE SULFATE INJ 2 MG/ML DISP.SYRIN IV PRN (23:24)
[2017-08-01] VITALS (54 sets, daily range): BP systolic 115–181; BP diastolic 59–96
[2017-08-01] MEDS: LORAZEPAM INJ 2 MG/ML VIAL IV PRN ×4 (01:06→19:28)
--- NOTE | 2017-08-01 01:10 | NUR ---
RN NOTES ER MD STILL CURRENTLY UNAVAILABLE TO ASSESS PT'S CHEST TUBE LEAK. RIGHT CHEST EMPHYSEMA APPEARS UNCHANGED, VITALS ARE CURRENTLY STABLE. WILL CONTINUE TO MONITOR CLOSELY
[2017-08-01 04:55] LABS: HEMATOCRIT 25 % (39-51); HEMOGLOBIN 8.3 g/dL (13.5-17.5); LYMPHOCYTES # (AUTO) 0.3 /CMM (0.8-4.8); LYMPHOCYTES % (AUTO) 3.8 % (20.0-44.0); MEAN CORPUSCULAR HEMOGLOBIN 29 PG (26.0-33.0); MEAN CORPUSCULAR HGB CONC 33 g/dl (31.0-36.0); MEAN CORPUSCULAR VOLUME 88 fL (80-96); MONOCYTES # (AUTO) 0.2 /CMM (0.1-1.30); MONOCYTES % (AUTO) 2.2 % (2.0-12.0); NEUTROPHILS # (AUTO) 6.4 /CMM (1.8-8.9); PLATELET COUNT (AUTO) 132 /CMM (150-450); RDW COEFFICIENT OF VARIATION 17.4 (11.5-15.0); RED BLOOD CELL COUNT(AUTO) 2.84 MIL/uL (4.5-6.0); WHITE BLOOD COUNT (AUTO) 6.9 K/uL (4.3-11.0)
[2017-08-01] MEDS: DEXAMETHASONE SOD PHOSPHATE 4 MG/ML VIAL IV SCH ×4 (05:03→23:28)
[2017-08-01 05:13] LABS: CALCIUM, SERUM 7.9 mg/dL (8.5-10.1); CARBON DIOXIDE 30 mmol/L (21-32); CHLORIDE 112 mmol/L (98-107); CREATININE 0.7 mg/dL (0.6-1.3); GLUCOSE 139 mg/dL (74-106); POTASSIUM 3.7 mmol/L (3.5-5.1); SODIUM SERUM 145 mmol/L (136-145); UREA NITROGEN, BLOOD 59 mg/dL (7-18)
--- NOTE | 2017-08-01 06:40 | NUR ---
RN CLOSING NOTES PT REMAINS STABLE OF NOW, VITALS WNL. RIGHT CHEST EMPHYSEMA APPEARS TO HAVE DECREASED; STILL WAITING FOR AM CHEST XR RESULT TO CONFIRM EMPHYSEMA SIZE. ER MD HASN'T BEEN ABLE TO ASSESS PT'S LEAKING CHEST TUBE. WILL ENDORSE FOR AM ER MD TO ASSESS PT. ALL DUE MEDS GIVEN, AM CARE PROVIDED. WILL ENDORSE CONTINUITY OF CARE TO AM RN
--- NOTE | 2017-08-01 07:05 | NUR ---
RN INITIAL NOTES RECEIVED PT HOB ELEVATED. TRACH IN PLACE. [facility] FF [facility]TINGS: AC14, TV450, FI02 40%, PEEP+5. nO RESPIRATORY DISTRESS NOTED. NO SOB NOTED. NO SIGNS OF PAIN NOTED. ARNULFO PICC IN PLACE. GT IN PLACE. ON GTF: FIBERSOURCE AT 50ML/HR. NO RESIDUAL NOTED. BILATERAL WRIST RESTRAINTS ON. NO CIRCULATORY IMPAIRMENT NOTED. CHEST TUBE IN PLACE, CONNECTED TO INTERMITTENT SUCTION. FC IN PLACE. NO HEMATURIA NOTED. BLE ELEVATED. WILL MONITOR.
[2017-08-01 08:07] LABS: ABG BASE EXCESS 3.5 mmol/L; ABG OXYGEN SATURATION 96.1 % (92.0-98.5); ABG PCO2 33.2 mmHg (35.0-45.0); ABG PH 7.517 (7.350-7.450); ABG PO2 91.4 mmHg (75.0-100.0); AaDO2 155.6 mmHg; COHb 0.3 % (0.5-1.5); MetHb 0.8 % (0.0-1.5); PEEP,BG 5 cm H2O; SITE, ABG Right Radial; VT, ABG 450 mL
[2017-08-01] MEDS: MEROPENEM 1 G in IV NS 0.9% 100 ML IV SCH ×2 (08:12→21:04)
[2017-08-01] MEDS: QUETIAPINE FUMARATE 25 MG TABLET NG SCH ×3 (08:12→21:03)
[2017-08-01] MEDS: LACTOBACILLUS RHAMNOSUS GG 1 EACH CAP.SPRINK GT SCH ×2 (08:13→16:27)
[2017-08-01] MEDS: PROSOURCE / PROSTAT (PYXIS) 30 ML UDC NG SCH ×2 (08:13→16:27)
[2017-08-01] MEDS: VALPROIC ACID 250 MG/5 ML UDC GT SCH ×2 (08:13→21:03)
[2017-08-01] MEDS: PANTOPRAZOLE 40 MG VIAL IV SCH (08:13)
[2017-08-01] MEDS: ASPIRIN 81 MG TAB.CHEW PO SCH (08:13)
[2017-08-01] MEDS: LISINOPRIL (10MG) 10 MG TABLET PO SCH (08:13)
[2017-08-01] MEDS: AMLODIPINE BESYLATE 5 MG TABLET PO SCH (09:21)
--- NOTE | 2017-08-01 09:30 | NUR ---
RN NOTES SEEN AND EXAMINED BY DR. TEE. AWARE OF CURRENT LAB VALUES AND CXR RESULT. PT SHOWS INCREASED SUBCUTANEOUS EMPHYSEMA, TRACKS TO THE LEFT. STABLE PNEUMOTHORAX AND SMALL LEFT PLEURAL EFFUSION. TRACH IN PLACE. TOLERATES VENT WELL. NO RESPIRATORY DISTRESS NOTED. NO SOB NOTED. HOB ELEVATED. WILL MONITOR
[2017-08-01 10:25] LABS: BAND % (MANUAL) 5 % (0.0-5.0); LYMPHOCYTES % (MANUAL) 7 % (16-48); NEUTROPHILS % (MANUAL) 88 (42-76)
--- NOTE | 2017-08-01 11:00 | NUR ---
RN NOTES SEEN AND EXAMINED BY DR. LAMB. AWARE OF CURRENT LAB VALUES: WBC 6.9, HGB 8.3, HCT 25, BUN 59. AWARE OF CXR RESULT. NO RESPIRATORY DISTRESS NOTED. NO SOB NOTED. HOB ELEVATED. RIGHT CHEST TUBE IN PLACE CONNECTED TO INTERMITTENT SUCTION. ORDERED LABS IN AM. WILL CONTINUE TO MONITOR.
[2017-08-01] MEDS: ENOXAPARIN SODIUM 40 MG/0.4 ML DISP.SYRIN SQ SCH (11:34)
[2017-08-01] MEDS: MORPHINE SULFATE INJ 2 MG/ML DISP.SYRIN IV PRN ×2 (16:27→22:16)
[2017-08-01] MEDS: FIBERSOURCE HN 1,000 ML BOTTLE GT PRN (16:27)
[2017-08-01] MEDS: hydrALAZINE HCL IV 20 MG VIAL IV PRN (17:49)
--- NOTE | 2017-08-01 18:46 | NUR ---
RN CLOSING NOTES NO SIGNIFICANT CHANGE NOTED. TRACH IN PLACE. TOLERATING VENT WELL. NO RESPIRATORY DISTRESS NOTED. NO SIGNS OF PAIN NOTED. PICC LINE IN PLACE. GT IN PLACE. TOLERATING WELL. NO RESIDUAL NOTED. CHEST TUBE IN PLACE CONNECTED TO SUCTION. FC IN PLACE. NO HEMATURIA. KEPT CLEAN AND DRY. REPOSITIONED Q2. BLE ELEVATED. WILL ENDORSE FOR CONTINUITY OF CARE.
[2017-08-01] MEDS: POLYETHYLENE GLYCOL 3350 17 GM POWD.PACK GT PRN (19:28)
--- NOTE | 2017-08-01 19:30 | NUR ---
RN INITIAL NOTES RECEIVED PT AWAKE ON BED, NON-VERBAL, UNABLE TO FOLLOW COMMANDS. CURRENTLY ON VENT WITH SETTINGS AC 14, TV450, 40% FIO2, PEEP 5, SATURATING WELL, TACHYPNEIC WITH RR 40'S WHICH IS NOTED TO BE DUE TO PT'S ANXIETY. RIGHT CHEST TUBE CONNECTED TO LOW CONTINUOUS WALL SUCTION NOTED. CHEST TUBE DRESSING IS CLEAN DRY INTACT. ON GTUBE FEEDING OF FIBERSOURCE @ 50MLS/HR, WITH 60MLS RESIDUALS, WILL RECHECK AGAIN LATER. CARLTON CATH INTACT. RIGHT UPPER ARM PICC FLUSHED AND PATENT, NO S/S OF INFILTRATION/INFECTION, DRESSING CDI. BED LOW AND LOCKED, SIDERAILS UP. BILATERAL SOFT WRIST RESTRAINTS IN PLACE FOR SAFETY. WILL CONTINUE TO MONITOR CLOSELY Addendum: 08/01/17 at 1941 by MARISSA FARRAR RN TIDAL VOLUME IS 400 (NOT 450)
[2017-08-01] MEDS: QUETIAPINE FUMARATE 100 MG TABLET NG SCH (21:03)
[2017-08-01] MEDS: ATORVASTATIN 40 MG TABLET PO SCH (21:03)
[2017-08-02] VITALS (59 sets, daily range): BP systolic 124–180; BP diastolic 54–95
[2017-08-02] MEDS: DEXAMETHASONE SOD PHOSPHATE 4 MG/ML VIAL IV SCH ×4 (05:03→23:24)
[2017-08-02] MEDS: LORAZEPAM INJ 2 MG/ML VIAL IV PRN ×3 (05:04→17:58)
[2017-08-02 05:21] LABS: HEMATOCRIT 25 % (39-51); HEMOGLOBIN 8.4 g/dL (13.5-17.5); LYMPHOCYTES # (AUTO) 0.3 /CMM (0.8-4.8); LYMPHOCYTES % (AUTO) 5.5 % (20.0-44.0); MEAN CORPUSCULAR HEMOGLOBIN 30 PG (26.0-33.0); MEAN CORPUSCULAR HGB CONC 33 g/dl (31.0-36.0); MEAN CORPUSCULAR VOLUME 89 fL (80-96); MONOCYTES % (AUTO) 0.6 % (2.0-12.0); NEUTROPHILS # (AUTO) 5.2 /CMM (1.8-8.9); NEUTROPHILS % (AUTO) 93.9 % (43.0-81.0); PLATELET COUNT (AUTO) 117 /CMM (150-450); RDW COEFFICIENT OF VARIATION 18.2 (11.5-15.0); RED BLOOD CELL COUNT(AUTO) 2.85 MIL/uL (4.5-6.0); WHITE BLOOD COUNT (AUTO) 5.5 K/uL (4.3-11.0)
[2017-08-02 05:43] LABS: CALCIUM, SERUM 7.9 mg/dL (8.5-10.1); CARBON DIOXIDE 32 mmol/L (21-32); CHLORIDE 111 mmol/L (98-107); CREATININE 0.6 mg/dL (0.6-1.3); GLUCOSE 146 mg/dL (74-106); MAGNESIUM 2.3 mg/dL (1.8-2.4); PHOSPHORUS 2.9 mg/dL (2.5-4.9); POTASSIUM 3.8 mmol/L (3.5-5.1); SODIUM SERUM 146 mmol/L (136-145); UREA NITROGEN, BLOOD 57 mg/dL (7-18)
--- NOTE | 2017-08-02 06:50 | NUR ---
RN CLOSING NOTES PT REMAINS STABLE OF THE MOMENT. ALL DUE MEDS GIVEN, AM CARE PROVIDED. WILL ENDORSE GABRIEL TO AM RN
--- NOTE | 2017-08-02 07:10 | NUR ---
RN INITIAL NOTES RECEIVED PT HOB ELEVATED. TRACH IN PLACE. ON [facility] VENT WITH FF SETTINGS: AC14, TV400, FI02 40%, PEEP+5. NO RESPIRATORY DISTRESS NOTED. NO SOB NOTED. HOB ELEVATED. NO SIGNS OF PAIN NOTED. ARNULFO PICC IN PLACE. GT IN PLACE. ON GTF: FIBERSOURCE AT 50ML/HR. NO RESIDUAL NOTED. BILATERAL WRIST RESTRAINTS ON. NO CIRCULATORY IMPAIRMENT NOTED. CHEST TUBE IN PLACE, CONNECTED TO INTERMITTENT SUCTION. FC IN PLACE. NO HEMATURIA NOTED. BLE ELEVATED. WILL MONITOR.
[2017-08-02] MEDS: QUETIAPINE FUMARATE 25 MG TABLET NG SCH ×3 (08:11→21:07)
[2017-08-02] MEDS: AMLODIPINE BESYLATE 5 MG TABLET PO SCH ×2 (08:11→16:07)
[2017-08-02] MEDS: MEROPENEM 1 G in IV NS 0.9% 100 ML IV SCH ×2 (08:11→21:06)
[2017-08-02] MEDS: PROSOURCE / PROSTAT (PYXIS) 30 ML UDC NG SCH ×2 (08:11→16:07)
[2017-08-02] MEDS: VALPROIC ACID 250 MG/5 ML UDC GT SCH ×2 (08:12→21:07)
[2017-08-02] MEDS: LACTOBACILLUS RHAMNOSUS GG 1 EACH CAP.SPRINK GT SCH ×2 (08:12→16:06)
[2017-08-02] MEDS: ASPIRIN 81 MG TAB.CHEW PO SCH (08:12)
[2017-08-02] MEDS: PANTOPRAZOLE 40 MG VIAL IV SCH (08:12)
[2017-08-02] MEDS: LISINOPRIL (10MG) 10 MG TABLET PO SCH (08:12)
[2017-08-02] MEDS: MORPHINE SULFATE INJ 2 MG/ML DISP.SYRIN IV PRN ×3 (08:14→21:07)
[2017-08-02 08:29] LABS: ABG BASE EXCESS 4.1 mmol/L; ABG OXYGEN SATURATION 97.7 % (92.0-98.5); ABG PH 7.548 (7.350-7.450); ABG PO2 117.9 mmHg (75.0-100.0); AaDO2 131.7 mmHg; COHb 0.2 % (0.5-1.5); MetHb 0.7 % (0.0-1.5); O2Hb 96.8 % (94.0-97.0); PEEP,BG 5 cm H2O; SITE, ABG Left Radial; VT, ABG 400 mL
--- NOTE | 2017-08-02 10:00 | NUR ---
RN NOTES SEEN AND EXAMINED BY DR. MANDEL. AWARE OF CURRENT LAB VALUES AND CXE RESULT. PT SINUS BRADYCARDIA TO SINUS RHYTHM. MEDS GIVEN ORDERED. NO ORDER MADE.
--- NOTE | 2017-08-02 10:15 | NUR ---
RN NOTES SEEN AND EXAMINED BY DR. TEE. AWARE OF CURRENT LAB VALUES AND CXR RESULT. CHEST TUBE IN. PT TOLERATING VENT WELL. NO RESPIRATORY DISTRESS NOTED. AWAITING FOR ORDER/S. WILL MONITOR.
[2017-08-02] MEDS: ENOXAPARIN SODIUM 40 MG/0.4 ML DISP.SYRIN SQ SCH (10:30)
--- NOTE | 2017-08-02 10:30 | NUR ---
RN NOTES SEEN AND EXAMINED BY DR. IRBY. AWARE OF CURRENT LAB VALUES: HGB 8.4, HCT 25, SODIUM 146. ALSO AWARE OF CXR RESULT. PT TOLERATING VENT WELL. ORDERED LABS IN AM. WILL MONITOR
[2017-08-02] MEDS ORDERED: BISACODYL SUPP (10 MG) 10 MG/SUPP.RECT SUPP.RECT RC STA (14:05)
[2017-08-02] MEDS: FIBERSOURCE HN 1,000 ML BOTTLE GT PRN (14:09)
[2017-08-02] MEDS: hydrALAZINE HCL IV 20 MG VIAL IV PRN (14:33)
--- NOTE | 2017-08-02 17:00 | NUR ---
RN NOTES CALLED DR. TEE REGARDING CLARIFICATION OF CPAP ORDER. PER , WEANING TRIALS IN AM.
--- NOTE | 2017-08-02 18:34 | NUR ---
RN CLOSING NOTES NO SIGNIFICANT CHANGE NOTED. TRACH IN PLACE. TOLERATING VENT WELL. NO RESPIRATORY DISTRESS NOTED. WEANING TRIALS IN AM. NO SIGNS OF PAIN NOTED. PICC LINE IN PLACE. GT IN PLACE. TOLERATING WELL. NO RESIDUAL NOTED. CHEST TUBE IN PLACE CONNECTED TO SUCTION. FC IN PLACE. NO HEMATURIA. KEPT CLEAN AND DRY. REPOSITIONED Q2. BLE ELEVATED. WILL ENDORSE FOR CONTINUITY OF CARE.
--- NOTE | 2017-08-02 19:30 | NUR ---
RN INITIAL NOTES RECEIVED PT AWAKE ON BED, NON-VERBAL, UNABLE TO FOLLOW COMMANDS. CURRENTLY ON VENT WITH SETTINGS AC 14, TV400, 40% FIO2, PEEP 5, SATURATING WELL, FOR WEANING TRIALS TOMORROW AM. RIGHT CHEST TUBE CONNECTED TO CONTINUOUS WALL SUCTION NOTED. CHEST TUBE DRESSING IS CLEAN DRY INTACT. ON GTUBE FEEDING OF FIBERSOURCE @ 50MLS/HR, WITH 55 MLS RESIDUALS. CARLTON CATH INTACT. RIGHT UPPER ARM PICC FLUSHED AND PATENT, NO S/S OF INFILTRATION/INFECTION, DRESSING CDI. BED LOW AND LOCKED, SIDERAILS UP. BILATERAL SOFT WRIST RESTRAINTS IN PLACE FOR SAFETY. WILL CONTINUE TO MONITOR CLOSELY
--- NOTE | 2017-08-02 20:07 | NUR ---
PT RECEIVED TRACH ON VENT. STEVELY 8 ON AC MODE. TOLERATING VENT SETTINGS. SX'D FOR SML AMT OF TINGED SECRETIONS. VENT ALARMS SET AND AUDIBLE. AMBU BAG AT BEDSIDE. VENT PLUGGED INTO RED OUTLET. WILL CONTINUE TO MONITOR. Addendum: 08/02/17 at 2009 by EUSEBIO MCCLURE RT Amended: Links added.
[2017-08-02] MEDS: POLYETHYLENE GLYCOL 3350 17 GM POWD.PACK GT PRN (21:07)
[2017-08-02] MEDS: ATORVASTATIN 40 MG TABLET PO SCH (21:07)
[2017-08-02] MEDS: QUETIAPINE FUMARATE 100 MG TABLET NG SCH (21:07)
[2017-08-03] VITALS (48 sets, daily range): BP systolic 116–182; BP diastolic 45–126
[2017-08-03] MEDS: LORAZEPAM INJ 2 MG/ML VIAL IV PRN (04:09)
[2017-08-03 04:30] LABS: HEMATOCRIT 26 % (39-51); HEMOGLOBIN 8.5 g/dL (13.5-17.5); LYMPHOCYTES # (AUTO) 0.3 /CMM (0.8-4.8); LYMPHOCYTES % (AUTO) 4.9 % (20.0-44.0); MEAN CORPUSCULAR HEMOGLOBIN 30 PG (26.0-33.0); MEAN CORPUSCULAR HGB CONC 33 g/dl (31.0-36.0); MEAN CORPUSCULAR VOLUME 89 fL (80-96); MONOCYTES % (AUTO) 0.5 % (2.0-12.0); NEUTROPHILS % (AUTO) 94.6 % (43.0-81.0); PLATELET COUNT (AUTO) 107 /CMM (150-450); RDW COEFFICIENT OF VARIATION 17.9 (11.5-15.0); RED BLOOD CELL COUNT(AUTO) 2.89 MIL/uL (4.5-6.0); WHITE BLOOD COUNT (AUTO) 5.3 K/uL (4.3-11.0)
[2017-08-03 04:51] LABS: CALCIUM, SERUM 7.9 mg/dL (8.5-10.1); CARBON DIOXIDE 31 mmol/L (21-32); CHLORIDE 112 mmol/L (98-107); CREATININE 0.6 mg/dL (0.6-1.3); GLUCOSE 182 mg/dL (74-106); POTASSIUM 4.1 mmol/L (3.5-5.1); SODIUM SERUM 147 mmol/L (136-145); UREA NITROGEN, BLOOD 56 mg/dL (7-18)
[2017-08-03] MEDS: DEXAMETHASONE SOD PHOSPHATE 4 MG/ML VIAL IV SCH ×4 (05:02→23:33)
--- NOTE | 2017-08-03 06:25 | NUR ---
RN CLOSING NOTES PT REMAINS STABLE OF THE MOMENT. ALL DUE MEDS GIVEN, AM CARE PROVIDED. WILL ENDORSE GABRIEL TO AM RN
--- NOTE | 2017-08-03 07:21 | NUR ---
SHIP WIRER RECEIVED PATIENT ON MECHANICAL VENTILAOTRY SUPPORT SATURATING 100% AFEBRILE AWAKE, APHASIC HEART RATE WNL WITH SOME EPISODES OF BRADYCARDIA SUBCUTANEOUS EMPHYSEMA NOTED OVER RIGHT UPPER CHEST CHEST TUBE IN PLACED, INTERMITTENT FLUCTUATION SEEN ON PLEUR EVAC HANDS HAVE PITTING EDEMA MAINTAINED ON TUBE FEEDING, MONITORED RESIDUAL WITH SCD IN PLACED CARLTON CATHETER IN PLACED
[2017-08-03] MEDS: PANTOPRAZOLE 40 MG VIAL IV SCH (08:53)
[2017-08-03] MEDS: VALPROIC ACID 250 MG/5 ML UDC GT SCH ×2 (08:54→21:03)
[2017-08-03] MEDS: LISINOPRIL (10MG) 10 MG TABLET PO SCH (08:54)
[2017-08-03] MEDS: QUETIAPINE FUMARATE 25 MG TABLET NG SCH ×3 (08:54→21:03)
[2017-08-03] MEDS: LACTOBACILLUS RHAMNOSUS GG 1 EACH CAP.SPRINK GT SCH ×2 (08:54→17:21)
[2017-08-03] MEDS: AMLODIPINE BESYLATE 5 MG TABLET PO SCH ×2 (08:54→17:22)
[2017-08-03] MEDS: ASPIRIN 81 MG TAB.CHEW PO SCH (08:54)
[2017-08-03] MEDS: PROSOURCE / PROSTAT (PYXIS) 30 ML UDC NG SCH ×2 (08:55→17:21)
[2017-08-03] MEDS: ENOXAPARIN SODIUM 40 MG/0.4 ML DISP.SYRIN SQ SCH (12:07)
[2017-08-03] MEDS ORDERED: NA PHOS,M-B/NA PHOS,DI-BA 1 EA ENEMA RC STA (13:02)
[2017-08-03] MEDS: MORPHINE SULFATE INJ 2 MG/ML DISP.SYRIN IV PRN (13:20)
[2017-08-03] MEDS: hydrALAZINE HCL IV 20 MG VIAL IV PRN (15:26)
[2017-08-03] MEDS: FIBERSOURCE HN 1,000 ML BOTTLE GT PRN (18:13)
[2017-08-03] MEDS: ATORVASTATIN 40 MG TABLET PO SCH (21:03)
[2017-08-03] MEDS: QUETIAPINE FUMARATE 100 MG TABLET NG SCH (21:03)
--- NOTE | 2017-08-03 21:35 | NUR ---
received pt from day shift, alert, does not follow commands, restless, tachypneic, SR, PACs, on the vent, lungs diminished, L chest tube intact to suction, GT to feeding tolerates well, v/s stable, no pain, pt turned and repositioned.
[2017-08-04] VITALS (36 sets, daily range): BP systolic 110–179; BP diastolic 60–114
--- NOTE | 2017-08-04 00:39 | NUR ---
pt is resting in the bed, v/s stable, no pain, pt turned and repositioned q2hrs.
--- NOTE | 2017-08-04 04:20 | NUR ---
pt is resting in the bed, v/s stable, no pain, pt cleaned, changed and repositioned q2hrs.
[2017-08-04] MEDS: DEXAMETHASONE SOD PHOSPHATE 4 MG/ML VIAL IV SCH ×4 (05:48→23:58)
--- NOTE | 2017-08-04 07:30 | NUR ---
UNDERCOVER COP RECEIVED PATIENT AWAKE ON MECHANICAL VENTILATORY SUPPORT SATURATING 100% AFEBRILE PANTING NOTED TACHYPNEIC NOTED BLOOD PRESSURE ELEVATED, WILL BE GIVING HYDRALAZINE 10 MG IV MAINTAINED OF FEEDING RESIDUAL CHECKED MONITORED URINE OUTPUT MONITORED CLOSELY
[2017-08-04] MEDS: hydrALAZINE HCL IV 20 MG VIAL IV PRN (07:40)
[2017-08-04] MEDS: LACTOBACILLUS RHAMNOSUS GG 1 EACH CAP.SPRINK GT SCH ×2 (08:28→17:18)
[2017-08-04] MEDS: PANTOPRAZOLE 40 MG VIAL IV SCH (08:28)
[2017-08-04] MEDS: PROSOURCE / PROSTAT (PYXIS) 30 ML UDC NG SCH ×2 (08:28→17:12)
[2017-08-04] MEDS: VALPROIC ACID 250 MG/5 ML UDC GT SCH ×2 (08:28→22:00)
[2017-08-04] MEDS: LISINOPRIL (10MG) 10 MG TABLET PO SCH (08:29)
[2017-08-04] MEDS: QUETIAPINE FUMARATE 25 MG TABLET NG SCH ×3 (08:29→22:00)
[2017-08-04] MEDS: AMLODIPINE BESYLATE 5 MG TABLET PO SCH ×2 (08:29→17:12)
[2017-08-04] MEDS: ASPIRIN 81 MG TAB.CHEW PO SCH (08:29)
[2017-08-04] MEDS: ENOXAPARIN SODIUM 40 MG/0.4 ML DISP.SYRIN SQ SCH (10:03)
[2017-08-04] MEDS: LORAZEPAM 0.5 MG TABLET PO PRN (12:00)
[2017-08-04] MEDS: LORAZEPAM INJ 2 MG/ML VIAL IV PRN (14:32)
--- NOTE | 2017-08-04 19:30 | NUR ---
COMPLAINT INVESTIGATOR RCD PT ALERT UNABLE TO FOLLOW COMMANDS ON BL SOFT WRIST RESTRAINTS PT DISCONNECTS TRACH. PT TOLERATING PRESCRIBED VENT SETTINGS. PENDING FROM 1500 TO TRANSFER TO [facility]. AWAITING BED.
--- NOTE | 2017-08-04 19:48 | NUR ---
RT RECEIVED PT TRACH ON VENT, WITH NOTED SETTINGS. PT HAS TRACH SIZE SHLY #8. VENT ALARMS CHECKEND AND AUDIBLE. SX'D SML AMT OF TINGED SECRETIONS. AMBU BAG NOTED AT BEDSIDE. VENT PLUGGED INTO RED OUTLET. WILL CONTINUE TO MONITOR T/O SHIFT.
--- NOTE | 2017-08-04 20:30 | NUR ---
FRONT OFFICE COORDINATOR TRANSFERRED TO TD FOR CONTINUITY CARE. REPORT GIVEN TO
--- NOTE | 2017-08-04 21:24 | NUR ---
received pt from ICU, alert, does not follow commands, drowsy, labored breathing, SR, on the vent, lungs partially congested, sat well, some pitting/non pitting edema, GT to feeding, tolerating well, f/c good output, v/s stable, no pain, pt turned and repositioned.
[2017-08-04] MEDS: QUETIAPINE FUMARATE 100 MG TABLET NG SCH (22:00)
[2017-08-04] MEDS: ATORVASTATIN 40 MG TABLET PO SCH (22:00)
[2017-08-05] VITALS (7 sets, daily range): BP systolic 131–158; BP diastolic 64–87
--- NOTE | 2017-08-05 05:01 | NUR ---
pt is resting in the bed, v/s stable, no pain, pt cleaned, changed and repositioned q2hrs.
[2017-08-05] MEDS: DEXAMETHASONE SOD PHOSPHATE 4 MG/ML VIAL IV SCH ×3 (05:20→17:10)
[2017-08-05] MEDS: PANTOPRAZOLE 40 MG VIAL IV SCH (08:56)
[2017-08-05] MEDS: VALPROIC ACID 250 MG/5 ML UDC GT SCH ×2 (08:56→21:05)
[2017-08-05] MEDS: ASPIRIN 81 MG TAB.CHEW PO SCH (08:56)
[2017-08-05] MEDS: QUETIAPINE FUMARATE 25 MG TABLET NG SCH ×3 (08:56→21:05)
[2017-08-05] MEDS: AMLODIPINE BESYLATE 5 MG TABLET PO SCH ×2 (08:56→16:43)
[2017-08-05] MEDS: LACTOBACILLUS RHAMNOSUS GG 1 EACH CAP.SPRINK GT SCH ×2 (08:56→16:43)
[2017-08-05] MEDS: LISINOPRIL (10MG) 10 MG TABLET PO SCH (08:57)
[2017-08-05] MEDS: PROSOURCE / PROSTAT (PYXIS) 30 ML UDC NG SCH ×2 (08:57→17:10)
[2017-08-05] MEDS: ENOXAPARIN SODIUM 40 MG/0.4 ML DISP.SYRIN SQ SCH (11:23)
[2017-08-05] MEDS: HYDROCODONE/APAP 5/325MG 1 EACH TABLET GT PRN (16:43)
--- NOTE | 2017-08-05 17:16 | NUR ---
BERTR[facility] RN NOTE 0720: Received patient awake, opens eyes but does not follow commands. Unable to comprehend. With trache to vent, tolerated settings at this time. No respiratory distress noted at this time. Noted with discoloration around stoma site. GT intact, feeding tolerated, no residuals noted at this time. Sue cath intact, noted with chito colored urine with sediments drained to BSD. ARNULFO PICC intact. Right chest tube intact, connected to low suction. Noted with air leak, MD aware. With right chest crepitus noted. Per MD continue monitoring and no surgical intervention for now. 1030: S/E by Dr. Escobar, no new order at this time. 1100: S/E by Dr. Lew, with order of SIMV, ABG and CXR in am. 1630: S/E by Dr. Escobar, no new order at this time. 1700: Kept clean, warm and dry. Needs attended. No any significant changes noted at this time.
[2017-08-05] MEDS: ATORVASTATIN 40 MG TABLET PO SCH (21:05)
[2017-08-05] MEDS: QUETIAPINE FUMARATE 100 MG TABLET NG SCH (21:05)
[2017-08-05] MEDS: LORAZEPAM INJ 2 MG/ML VIAL IV PRN (21:33)
[2017-08-06] VITALS: BP 151/75
[2017-08-06] MEDS: DEXAMETHASONE SOD PHOSPHATE 4 MG/ML VIAL IV SCH ×4 (00:49→17:33)
[2017-08-06 04:00] VITALS: BP 151/78
[2017-08-06 08:00] VITALS: BP 140/76
--- NOTE | 2017-08-06 08:00 | NUR ---
TD/RN AM SHIFT INITIAL NOTES RECEIVED PT AWAKE IN BED, NO ACUTE CHANGE OF CONDITION OR GRIMACING NOTED, NO FEVER. PT WAS PLACED ON SIMV MODE, RATE 4, PRESSURE SUPPORT 15 AND PEEP 5 @ 0735, PT NOTED WITH INCREASED RATE OF RESPIRATIONS, 40, SATURATING @ 99%, NOTED WITH DIMINISHED LUNG SOUNDS. SUCTIONED FOR AIRWAY CLEARANCE. ON TELE WITH SINUS RHYTHM WITH OCCASIONAL PVCs, HR 75. TRACH INTACT WITH STITCHES, WITH DRIED OLD BLOOD AND SOME REDNESS. PICC LINE, FLUSHED, PATENT, SL, WITH NO S/S OF INFECTION. CHEST TUBE ON RIGHT LUNG INTACT ON NEGATIVE (-) 20CM PLUERA VAC, CONTINUOUS SUCTIONING, NOTED WITH SEROSANGUINEOUS OUTPUT, KEELY CLAMP ATTACHED TO BEDRAIL. GT FEEDING ON GOING @ 50CC/HR, NO GASTRIC RESIDUAL, FLUSHED, PATENT. CARLTON CATHETER INTACT WITH YELLOW URINE. SCHEDULED AM MEDS TO BE GIVEN. PT IS COMFORTABLE AT THIS TIME. CL WITHIN REACHED AND SAFETY MAINTAINED. ON GOING MONITORING.
[2017-08-06] MEDS: PANTOPRAZOLE 40 MG VIAL IV SCH (08:51)
[2017-08-06] MEDS: PROSOURCE / PROSTAT (PYXIS) 30 ML UDC NG SCH ×2 (08:51→17:34)
[2017-08-06] MEDS: ASPIRIN 81 MG TAB.CHEW PO SCH (08:52)
[2017-08-06] MEDS: QUETIAPINE FUMARATE 25 MG TABLET NG SCH ×3 (08:52→21:24)
[2017-08-06] MEDS: LACTOBACILLUS RHAMNOSUS GG 1 EACH CAP.SPRINK GT SCH ×2 (08:52→17:34)
[2017-08-06] MEDS: VALPROIC ACID 250 MG/5 ML UDC GT SCH ×2 (08:52→21:23)
[2017-08-06] MEDS: LISINOPRIL (10MG) 10 MG TABLET PO SCH (08:53)
[2017-08-06] MEDS: AMLODIPINE BESYLATE 5 MG TABLET PO SCH ×2 (08:53→17:34)
[2017-08-06] MEDS: HYDROCODONE/APAP 5/325MG 1 EACH TABLET GT PRN (08:55)
[2017-08-06 08:57] LABS: ABG BASE EXCESS 2.8 mmol/L; ABG OXYGEN SATURATION 96.5 % (92.0-98.5); ABG PCO2 24.7 mmHg (35.0-45.0); ABG PH 7.601 (7.350-7.450); AaDO2 165.8 mmHg; COHb 0.3 % (0.5-1.5); MetHb 0.6 % (0.0-1.5); O2Hb 95.6 % (94.0-97.0); PEEP,BG 5 cm H2O; SITE, ABG Left Radial; VENT MODE, BG SIMV PS 15; VT, ABG 400 mL
--- NOTE | 2017-08-06 09:00 | NUR ---
TD/RN BACK TO AC MODE ABG DRAWN, PT NOT TOLERATING SIMV MODE. PT PLACED BACK TO AC MODE 14, TV 400, FIO2 40% AND PEEP 5. ON GOING MONITORING.
[2017-08-06] MEDS: ENOXAPARIN SODIUM 40 MG/0.4 ML DISP.SYRIN SQ SCH (11:38)
[2017-08-06 12:00] VITALS: BP 136/86
[2017-08-06] MEDS: LORAZEPAM 0.5 MG TABLET PO PRN (13:12)
[2017-08-06] MEDS: FIBERSOURCE HN 1,000 ML BOTTLE GT PRN (13:13)
--- NOTE | 2017-08-06 13:23 | NUR ---
TELE1/RN ROUNDS - DR. STRONG UPDATED PT'S CONDITION, RELAYED THAT PT DID NOT TOLERATED WEANING, ALSO ON AC PT NOTED WITH RESPIRATORY RATE BETWEEN 35-40. PT GIVEN ATIVAN PRN FOR PT BEING RESTLESS. ON GOING MONITORING.
--- NOTE | 2017-08-06 13:48 | NUR ---
TELE1/RN VENT CHANGE VENT RATE CHANGE FROM 14 TO 22. ON GOING MONITORING. Addendum: 08/06/17 at 1355 by NAHEED JOHNSON RN ADDENDUM: PEEP CHANGE FROM 5 TO 3
[2017-08-06] MEDS: LORAZEPAM INJ 2 MG/ML VIAL IV PRN ×2 (14:39→19:42)
--- NOTE | 2017-08-06 15:44 | NUR ---
TELE1/RN VENT CHANGE VERIFIED WITH DR. STRONG FOR ANOTHER VENT SETTING RATE FIO2 50 AND PEEP 5. CURRENT SETTING ARE FOLLOWS: AC 22, TV 400, FIO2 50 AND PEEP 5. MONITORING CONTINUED.
[2017-08-06 16:00] VITALS: BP 150/74
--- NOTE | 2017-08-06 17:00 | NUR ---
TELE1/RN AFTERNOON ROUNDS PM CARE PROVIDED. PT STILL NOTED WITH RESPIRATIONS UP TO THE 40s, MD AWARE. NO ACUTE CHANGE OF CONDITION NOTED. MONITORING CONTINUED.
--- NOTE | 2017-08-06 19:18 | NUR ---
TELE1/RN AM SHIFT END NOTES ALL NEEDS MET. PT ENDORSED TO PM NURSE TO CONTINUE CARE. CL WITHIN REACHED AND SAFETY MAINTAINED.
--- NOTE | 2017-08-06 19:55 | NUR ---
RN Initial Notes Received patient on the ventilator on AC mode with tracheostomy #8 ,patient very tachypneic with labored breathing RR in the 40's .Letahrgic ,opens eyes,responds to pain but not following commands,slightly moves and lifts upper extremities,withdraws LE to pain.Chest tube at Right lateral chest to pleurovac -to suction ,with large air leak noted ,tubing payent with minimal serosanguinous drainage. Peg tube with ongoing feeding .Aspiration precaution observed. 1939 Still very tachypneic with labored breathing,Ativan 1 mg.IVP given. 2004 A little calmer after the ativan but still a little tachypneic but less labored.Comfort measures done.
[2017-08-06 20:00] VITALS: BP 165/80
[2017-08-06] MEDS: ATORVASTATIN 40 MG TABLET PO SCH (21:23)
[2017-08-06] MEDS: QUETIAPINE FUMARATE 100 MG TABLET NG SCH (21:27)
[2017-08-06] MEDS: MORPHINE SULFATE INJ 2 MG/ML DISP.SYRIN IV PRN (22:26)
[2017-08-07] VITALS (7 sets, daily range): BP systolic 120–154; BP diastolic 67–90
[2017-08-07] MEDS: DEXAMETHASONE SOD PHOSPHATE 4 MG/ML VIAL IV SCH ×5 (00:06→23:00)
[2017-08-07] MEDS: LORAZEPAM INJ 2 MG/ML VIAL IV PRN ×3 (03:24→18:41)
--- NOTE | 2017-08-07 05:00 | NUR ---
RN NOTES 0500 Feeding residual =160 ml.,held feeding tomporarily ,will re check feeding residual .
[2017-08-07] MEDS: FIBERSOURCE HN 1,000 ML BOTTLE GT PRN (05:32)
--- NOTE | 2017-08-07 06:21 | NUR ---
Cardio thoracic service,came to see patient,wants chest tube just to water seal ,DC suction.also made him aware of the subcutaneous emphysema.Ae pes ,nothing to do for now,will just do CXR today.
[2017-08-07 06:31] LABS: CALCIUM, SERUM 7.8 mg/dL (8.5-10.1); CARBON DIOXIDE 27 mmol/L (21-32); CHLORIDE 119 mmol/L (98-107); CREATININE 0.4 mg/dL (0.6-1.3); GLUCOSE 166 mg/dL (74-106); POTASSIUM 3.4 mmol/L (3.5-5.1); SODIUM SERUM 151 mmol/L (136-145); UREA NITROGEN, BLOOD 47 mg/dL (7-18)
[2017-08-07 06:32] LABS: HEMATOCRIT 23 % (39-51); HEMOGLOBIN 7.7 g/dL (13.5-17.5); LYMPHOCYTES # (AUTO) 0.3 /CMM (0.8-4.8); LYMPHOCYTES % (AUTO) 5.6 % (20.0-44.0); MEAN CORPUSCULAR HEMOGLOBIN 29 PG (26.0-33.0); MEAN CORPUSCULAR HGB CONC 33 g/dl (31.0-36.0); MEAN CORPUSCULAR VOLUME 89 fL (80-96); MONOCYTES # (AUTO) 0.1 /CMM (0.1-1.30); MONOCYTES % (AUTO) 1.4 % (2.0-12.0); NEUTROPHILS # (AUTO) 4.3 /CMM (1.8-8.9); RDW COEFFICIENT OF VARIATION 19.2 (11.5-15.0); RED BLOOD CELL COUNT(AUTO) 2.63 MIL/uL (4.5-6.0); WHITE BLOOD COUNT (AUTO) 4.6 K/uL (4.3-11.0)
[2017-08-07 06:52] LABS: PLATELET COUNT (AUTO) 43 /CMM (150-450)
[2017-08-07] MEDS: MORPHINE SULFATE INJ 2 MG/ML DISP.SYRIN IV PRN ×2 (07:07→20:39)
--- NOTE | 2017-08-07 07:30 | NUR ---
RN NOTES RECEIVED PATIENT ON [facility] VENT WITH BREATHING NORMAL, EVEN AND UNLABORED. NO SOB NOTED. NO ACUTE DISTRESS NOTED. VENT SETTING REVIEWED AND VERIFIED. TOLERATED WELL. TELE MONITOR REVEALS SR, HR=82. ARNULFO PICC LINE IS PATENT AND INTACT. ON GT FEEDING FIBERSOURCE @ 50CC/HR. TOLERATED WELL. POSITIVE PLACEMENT. ASPIRATION PRECAUTION TAKEN. HOB ELEVATED. F/C IS PATENT AND INTACT, DRAINING WITH GRAVITY. KEPT CLEAN, DRY AND COMFORTABLE. ALL NEEDS ATTENDED. CALL LIGHT WITH IN REACH. WILL CONT TO MONITOR.
[2017-08-07] MEDS: LISINOPRIL (10MG) 10 MG TABLET PO SCH (08:59)
[2017-08-07] MEDS: PROSOURCE / PROSTAT (PYXIS) 30 ML UDC NG SCH ×2 (08:59→17:09)
[2017-08-07] MEDS: LACTOBACILLUS RHAMNOSUS GG 1 EACH CAP.SPRINK GT SCH ×2 (08:59→17:09)
[2017-08-07] MEDS: PANTOPRAZOLE 40 MG VIAL IV SCH (08:59)
[2017-08-07] MEDS: ASPIRIN 81 MG TAB.CHEW PO SCH (08:59)
[2017-08-07] MEDS: AMLODIPINE BESYLATE 5 MG TABLET PO SCH ×2 (08:59→17:09)
[2017-08-07] MEDS ORDERED: POTASSIUM CHLORIDE 20 MEQ POWDER PACKET GT SCH (09:00)
[2017-08-07] MEDS: VALPROIC ACID 250 MG/5 ML UDC GT SCH ×2 (09:05→20:40)
[2017-08-07] MEDS: HYDROCODONE/APAP 5/325MG 1 EACH TABLET GT PRN ×2 (09:05→17:10)
[2017-08-07] MEDS: QUETIAPINE FUMARATE 25 MG TABLET NG SCH ×3 (09:21→21:08)
[2017-08-07 10:09] LABS: ABG BASE EXCESS 2.3 mmol/L; ABG OXYGEN SATURATION 97.8 % (92.0-98.5); ABG PCO2 27.8 mmHg (35.0-45.0); ABG PH 7.557 (7.350-7.450); AaDO2 143.2 mmHg; COHb 0.3 % (0.5-1.5); MetHb 0.7 % (0.0-1.5); O2Hb 96.8 % (94.0-97.0); SITE, ABG Right Radial
[2017-08-07 10:20] LABS: BAND % (MANUAL) 5 % (0.0-5.0); LYMPHOCYTES % (MANUAL) 3 % (16-48); MONOCYTES % (MANUAL) 3 % (0-11.0); NEUTROPHILS % (MANUAL) 89 (42-76)
--- NOTE | 2017-08-07 19:03 | NUR ---
RN NOTES PATIENT ENDORSED TO NEXT SHIFT IN STABLE CONDITION WITH BREATHING NORMAL, EVEN AND UNLABORED. NO SOB NOTED. NO ACUTE DISTRESS NOTED. KEPT CLEAN, DRY AND COMFORTABLE. ALL NEEDS ATTENDED. SAFETY MEASURE OBSERVED. CALL LIGHT WITH IN REACH. WILL CONT TO MONITOR.
--- NOTE | 2017-08-07 21:02 | NUR ---
RN DF I MEDICATED PT WITH MORPHINE 2MG IVP.PT WITH FACIAL GRIMACING,MOANING.PT NONVERBAL 2ND TRACH.PT DOES NOT FOLLOW COMMANDS,DOES NOT INTERACT WITH STAFF.PT WITH RIGHT SIDED CHEST TUBE TO WATER SEAL, PT NOTED WITH MILD AIR LEAK.PT WAS SEEN AND EVAL BY MD RICHELLE LANDIN/THORACIC SGY PER NOTES PT NOT A CANDIDATE FOR SURGICAL INTERVENTION AT THIS TIME. PT OVERBREATHING VENT RATE OF 40-55.RT AT BEDSIDE FOR SUCTIONING.PT TOLERATING TUBE FEEDING OF FIBERSOURCE AT 50 ML/HR. VSS.NAD NOTED.
[2017-08-07] MEDS: QUETIAPINE FUMARATE 100 MG TABLET NG SCH (21:08)
[2017-08-07] MEDS: ATORVASTATIN 40 MG TABLET PO SCH (22:59)
[2017-08-08] VITALS: BP_SYST 141; BP_SYST 149; BP_DIAS 56; BP_DIAS 77
[2017-08-08 04:00] VITALS: BP 141/77
[2017-08-08] MEDS: MORPHINE SULFATE INJ 2 MG/ML DISP.SYRIN IV PRN ×2 (05:20→17:16)
[2017-08-08] MEDS: DEXAMETHASONE SOD PHOSPHATE 4 MG/ML VIAL IV SCH ×4 (05:20→23:51)
[2017-08-08] MEDS: FIBERSOURCE HN 1,000 ML BOTTLE GT PRN (05:24)
--- NOTE | 2017-08-08 05:44 | NUR ---
ostomy rn df pt agitated,restless, with constant moaning assume pain present i medicated pt with morphine 2mg ivp,vss.
[2017-08-08 07:03] LABS: CALCIUM, SERUM 8.1 mg/dL (8.5-10.1); CARBON DIOXIDE 27 mmol/L (21-32); CHLORIDE 120 mmol/L (98-107); CREATININE 0.5 mg/dL (0.6-1.3); GLUCOSE 147 mg/dL (74-106); PHOSPHORUS 2.4 mg/dL (2.5-4.9); POTASSIUM 3.8 mmol/L (3.5-5.1); SODIUM SERUM 155 mmol/L (136-145); UREA NITROGEN, BLOOD 45 mg/dL (7-18)
[2017-08-08] MEDS: LORAZEPAM INJ 2 MG/ML VIAL IV PRN ×2 (07:12→23:52)
--- NOTE | 2017-08-08 07:16 | NUR ---
rn internship df pt agitated,restless, with constant moaning PT AGITATED OVERBREATHING VENT WITH A RATE OF 42 RPM, I MEDICATED PT WITH 1MG ATIVAN IVP. VSS.ENDORSED CARE TO DAY SHIFT RN.
--- NOTE | 2017-08-08 07:40 | NUR ---
PROCESS TECHNICIAN INITIAL NOTES RN RECEIVED PATIENT IN BED VENT/TACH DEPENDENT WITH NORMAL, EVEN AND UNLABORED BREATHING. NO SOB NOTED. NO ACUTE DISTRESS NOTED. VENT SETTING REVIEWED AND VERIFIED VENT MACHINE CONTINUES TO ALARM RN NOTIFIED RESPIRATORY TO FURTHER ASSESS. EYAD GARCIA ANXIOUS PREVIOUS RN ADMINISTERED PRN ATIVAN FOR AGITATION / ANXIETY . PT IS ON TELE MONITOR SR, ARNULFO PICC LINE IS PATENT AND INTACT. PT ON GT FEEDING FIBERSOURCE @ 50CC/HR. TOLERATED WELL. POSITIVE PLACEMENT AND NO RESIDUALS NOTED . ASPIRATION PRECAUTION TAKEN. HOB ELEVATED. F/C IS PATENT AND INTACT, DRAINING WITH GRAVITY. PT KEPT CLEAN, DRY . ALL NEEDS ATTENDED. CALL LIGHT WITH IN REACH. RN WILL CONT TO MONITOR THROUGHOUT THE DAY .
[2017-08-08 08:00] VITALS: BP 124/82
[2017-08-08] MEDS: ASPIRIN 81 MG TAB.CHEW PO SCH (08:28)
[2017-08-08] MEDS: QUETIAPINE FUMARATE 25 MG TABLET NG SCH ×3 (08:29→21:26)
[2017-08-08] MEDS: LACTOBACILLUS RHAMNOSUS GG 1 EACH CAP.SPRINK GT SCH ×2 (08:31→17:14)
[2017-08-08] MEDS: AMLODIPINE BESYLATE 5 MG TABLET PO SCH ×2 (08:31→17:14)
[2017-08-08] MEDS: LISINOPRIL (10MG) 10 MG TABLET PO SCH (08:33)
[2017-08-08] MEDS: VALPROIC ACID 250 MG/5 ML UDC GT SCH ×2 (08:33→21:26)
[2017-08-08] MEDS: PROSOURCE / PROSTAT (PYXIS) 30 ML UDC NG SCH ×2 (08:36→17:27)
--- NOTE | 2017-08-08 10:04 | NUR ---
PT RECEIVED ON VENT VIA TRACH. RN CALLED TO ASSESS PT DUE TO VENTILATOR ALARMING. WHEN ASSESSED PT. NOTED THAT THE CUFF WAS PARTIALLY DEFLATED. DATA ENTRY PROCESSOR WAS DONE. VOLUME WAS STILL NOTED. DR. TEE AT BEDSIDE AND INFORMED OF THE SITUATION. DR. TEE GAVE VERBAL ORDER TO DC PEEP AND CHANGE TRACH. TRACH WAS CHANGED TO SAME SIZE(SHILEY #[id number]) DUE TO BALLOON ON TRACH LEAKING. PT IS STABLE, RECEIVING ADEQUATE VOLUMES. SPO2 100%. RN DENNISHA AWARE. VENT PLUGGED INTO RED OUTLET AND ALARMS SET AND AUDIBLE PER POLICY.
[2017-08-08 12:00] VITALS: BP 129/72
[2017-08-08 16:00] VITALS: BP 148/73
[2017-08-08] MEDS ORDERED: NEUTRA PHOS 1 POWD.PACKET NG ONE (16:45)
[2017-08-08] MEDS: IV D5W 1,000 ML IV PRN (17:21)
[2017-08-08] MEDS: ACETAMINOPHEN 325 MG TABLET PO PRN (18:11)
--- NOTE | 2017-08-08 18:27 | NUR ---
RN CLOSING NOTES PATIENT IN BED VENT /TRACH DEPENDENT, BREATHING NORMAL, EVEN AND UNLABORED. NO SOB NOTED. NO ACUTE DISTRESS NOTED. PT KEPT CLEAN, DRY AND COMFORTABLE. ALL NEEDS ATTENDED. SAFETY MEASURE OBSERVED. CALL LIGHT WITH IN REACH. RN WILL ENDORSE CONTINUED CARE TO PM SHIFT
[2017-08-08 20:00] VITALS: BP 144/73
--- NOTE | 2017-08-08 20:00 | NUR ---
CLINICAL PARTNER NOTE PT IN BED OBTUNDED. ON VENT/TRACH TOLERATING THE SETTINGS WELL. SUCTIONED HIM NEEDED. CHEST TUBE INTACT AND PATENT DRAINING SEROSANGUINEOUS FLUID. ALSO F/C INTACT AND PATENT DRAINING YELLOWISH COLOR URINE. UPPER EXT'S ARE CONTRACTED. LT WRIST WITH SOFT RESTRAINTS. SKIN AROUND LT WRIST WNL. GTF FIBERSOURCE INFUSING AT 50 ML/HR, O ML RESIDUAL NOTED. IVF D5W INFUSING AT 50 ML/HR ARNULFO PICC LINE, NO S/S OF INFILTRATION NOTED. FLUSH THE GT ORDERED. KEPT HOB ELEVATED. SIDE RAILS UP X 3 AND CALL LIGHT WITHIN REACH. REPOSITION HIM FOR SKIN MANAGEMENT. ALL NEEDS ATTENDED.
--- NOTE | 2017-08-08 20:05 | NUR ---
GENERAL NEUROLOGIST NOTE ON TELE SR/S TACH HR 100.
[2017-08-08] MEDS: QUETIAPINE FUMARATE 100 MG TABLET NG SCH (21:26)
[2017-08-08] MEDS: ATORVASTATIN 40 MG TABLET PO SCH (21:27)
[2017-08-09] VITALS (45 sets, daily range): BP systolic 70–137; BP diastolic 38–76
--- NOTE | 2017-08-09 | NUR ---
SOCIAL WORK ASSOCIATE NOTE PT NOTED RESTLESS WITH LABORED BREATHING. ATIVAN 1 MG IV PUSH GIVEN. VSS. CONTINUE TO MONITOR HIM.
--- NOTE | 2017-08-09 00:30 | NUR ---
SPOILAGE WORKER NOTE PT CALM DOWN. CONTINUE TO MONITOR
[2017-08-09] MEDS: MORPHINE SULFATE INJ 2 MG/ML DISP.SYRIN IV PRN ×2 (01:03→13:58)
[2017-08-09] MEDS: ACETAMINOPHEN 325 MG TABLET PO PRN ×2 (01:03→14:05)
--- NOTE | 2017-08-09 01:08 | NUR ---
ORTHOPEDIC RN NOTE NOTED PT WITH TEMP 101.1, TYLENOL 650 MG VIA GT GIVEN. ALSO MORPHINE 2 MG IVP GIVEN FOR PAIN NOTED GRIMACE ON FACE, UNABLE TO SCALE THE PAIN. B/P STABLE. BODY COOLING MEASURES APPLIED. CONTINUE TO MONITOR.
--- NOTE | 2017-08-09 02:13 | NUR ---
YARDER ENGINEER NOTE TEMP CAME DOWN TO 100.2, ALSO NO S/S OF PAIN NOTED. CONTINUE WITH REPOSITION HIM Q2H. KEPT HIM DRY AND CLEAN. IVF AND GTF INFUSING WELL. ALL NEEDS ATTENDED. CONTINUE TO MONITOR HIM.
[2017-08-09] MEDS: FIBERSOURCE HN 1,000 ML BOTTLE GT PRN (04:58)
[2017-08-09] MEDS: IV D5W 1,000 ML IV PRN (04:58)
[2017-08-09] MEDS: DEXAMETHASONE SOD PHOSPHATE 4 MG/ML VIAL IV SCH ×3 (06:01→17:38)
[2017-08-09 06:10] LABS: CALCIUM, SERUM 7.7 mg/dL (8.5-10.1); CARBON DIOXIDE 27 mmol/L (21-32); CHLORIDE 117 mmol/L (98-107); CREATININE 0.7 mg/dL (0.6-1.3); GLUCOSE 97 mg/dL (74-106); PHOSPHORUS 2.6 mg/dL (2.5-4.9); POTASSIUM 3.4 mmol/L (3.5-5.1); SODIUM SERUM 151 mmol/L (136-145); UREA NITROGEN, BLOOD 48 mg/dL (7-18)
--- NOTE | 2017-08-09 06:25 | NUR ---
PICK UP DRIVER NOTE PT REMAIN OBTUNDED. TOLERATING VENT SETTINGS WELL. NO DISTRESS OR DISCOMFORT NOTED. NO S/S OF PAIN NOTED. GTF AND IVF INFUSING WELL. 10 ML RESIDUAL NOTED OF GTF AND NO S/S OF INFILTRATION NOTED ON IVF. ALSO BLOOD DRAWN FOR LAB TACH FROM PICC LINE WITH GOOD RETURN OF BLOOD. ON TELE SR HR 88. ON FEVER NOTED AT THIS TIME. CHEST TUBE INTACT AND 0 ML OUTPUT FOR THE SHIFT. ALL NEEDS ATTENDED. SIDE RAILS UP X 3 AND CALL LIGHT WITHIN REACH. WILL ENDORSE TO DAY SHIFT NURSE FOR CONTINUE TO CARE.
--- NOTE | 2017-08-09 07:35 | NUR ---
RN NOTES PT CHRONIC VENT/TRACH OBTUNDED. TOLERATING VENT SETTINGS NO DISTRESS NOTED. SR ON THE TELE MONITOR HR 86. CHEST TUBE IN PLACE DRAINING MINIMAL FLUID. L ELBOW RESTRAINT IN PLACE, PT ATTEMPTS TO FULL AT TRACH. ORDER IN PACE. CARLTON CATH DRAINING TO GRAVITY YELLOW IN COLOR. FIBERSOURCE AT 50ML/HR TOLERATING WELL RESIDUAL LESS THAN 5ML. ARNULFO PICC LINE IN PLACE WITH IVF AT 50ML/HR. BED LOCKED AND IN LOWEST POSITION,SIDE RAILS UPX3 WILL CONT TO MING.
[2017-08-09] MEDS: VALPROIC ACID 250 MG/5 ML UDC GT SCH ×2 (08:37→21:08)
[2017-08-09] MEDS: LISINOPRIL (10MG) 10 MG TABLET PO SCH (08:37)
[2017-08-09] MEDS: AMLODIPINE BESYLATE 5 MG TABLET PO SCH ×2 (08:38→17:00)
[2017-08-09] MEDS: ASPIRIN 81 MG TAB.CHEW PO SCH (08:38)
[2017-08-09] MEDS: PROSOURCE / PROSTAT (PYXIS) 30 ML UDC NG SCH ×2 (08:38→17:41)
[2017-08-09] MEDS: LACTOBACILLUS RHAMNOSUS GG 1 EACH CAP.SPRINK GT SCH ×2 (08:38→17:38)
[2017-08-09] MEDS: QUETIAPINE FUMARATE 25 MG TABLET NG SCH ×3 (08:40→21:09)
[2017-08-09 10:40] LABS: ABG BASE EXCESS 1.5 mmol/L; ABG OXYGEN SATURATION 94.3 % (92.0-98.5); ABG PCO2 29.4 mmHg (35.0-45.0); ABG PO2 74.9 mmHg (75.0-100.0); AaDO2 248.5 mmHg; COHb 0.3 % (0.5-1.5); MetHb 0.3 % (0.0-1.5); O2Hb 93.7 % (94.0-97.0); SITE, ABG Right Radial; VENT MODE, BG CPAP 0 PS 10
[2017-08-09 11:14] LABS: BASOPHILS % (AUTO) 0.1 % (0.0-2.0); EOSINOPHILS % (AUTO) 0.2 % (0.0-6.0); HEMATOCRIT 22 % (39-51); HEMOGLOBIN 7.3 g/dL (13.5-17.5); LYMPHOCYTES # (AUTO) 0.1 /CMM (0.8-4.8); LYMPHOCYTES % (AUTO) 6.6 % (20.0-44.0); MEAN CORPUSCULAR HEMOGLOBIN 29 PG (26.0-33.0); MEAN CORPUSCULAR HGB CONC 33 g/dl (31.0-36.0); MEAN CORPUSCULAR VOLUME 89 fL (80-96); NEUTROPHILS # (AUTO) 0.9 /CMM (1.8-8.9); NEUTROPHILS % (AUTO) 90.1 % (43.0-81.0); RDW COEFFICIENT OF VARIATION 19.6 (11.5-15.0); RED BLOOD CELL COUNT(AUTO) 2.49 MIL/uL (4.5-6.0)
[2017-08-09] MEDS ORDERED: POTASSIUM CHLORIDE 20 MEQ POWDER PACKET GT SCH (11:30)
[2017-08-09 11:40] LABS: PLATELET COUNT (AUTO) 31 /CMM (150-450)
[2017-08-09 11:51] LABS: LYMPHOCYTES % (MANUAL) 8 % (16-48); MONOCYTES % (MANUAL) 8 % (0-11.0); NEUTROPHILS % (MANUAL) 84 (42-76)
[2017-08-09 13:13] LABS: BASOPHILS % (AUTO) 0.4 % (0.0-2.0); EOSINOPHILS % (AUTO) 0.1 % (0.0-6.0); HEMATOCRIT 26 % (39-51); HEMOGLOBIN 8.7 g/dL (13.5-17.5); LYMPHOCYTES # (AUTO) 0.4 /CMM (0.8-4.8); LYMPHOCYTES % (AUTO) 15.4 % (20.0-44.0); MEAN CORPUSCULAR HEMOGLOBIN 30 PG (26.0-33.0); MEAN CORPUSCULAR HGB CONC 33 g/dl (31.0-36.0); MEAN CORPUSCULAR VOLUME 91 fL (80-96); MONOCYTES % (AUTO) 0.8 % (2.0-12.0); NEUTROPHILS # (AUTO) 1.9 /CMM (1.8-8.9); NEUTROPHILS % (AUTO) 83.3 % (43.0-81.0); RDW COEFFICIENT OF VARIATION 19.8 (11.5-15.0); WHITE BLOOD COUNT (AUTO) 2.3 K/uL (4.3-11.0)
[2017-08-09 13:16] LABS: PLATELET COUNT (AUTO) 33 /CMM (150-450)
[2017-08-09 13:34] LABS: BAND % (MANUAL) 8 % (0.0-5.0); LYMPHOCYTES % (MANUAL) 20 % (16-48); MONOCYTES % (MANUAL) 4 % (0-11.0); NEUTROPHILS % (MANUAL) 68 (42-76)
--- NOTE | 2017-08-09 13:44 | NUR ---
RN NOTES DR IRBY MADE AWARE OF LOW WBC AND PLT COUNT. NO NEW ORDERS GIVEN. WILL CONT TO MING.
[2017-08-09] MEDS: LORAZEPAM 0.5 MG TABLET PO PRN (14:14)
[2017-08-09] MEDS: LORAZEPAM INJ 2 MG/ML VIAL IV PRN (14:16)
--- NOTE | 2017-08-09 14:30 | NUR ---
RN NOTES PT HR 130S, 02 SAT 86-89%. PT PLACED ON 100% O2, ATIVAN AND MORPHINE ADMINISTERED. NO CHANGES, PT CONTINUED TO BE IN RESPIRATORY DISTRESS WITH LOW OXYGEN SAT. DR IRBY AND DR TEE MADE AWARE, ORDER TO TRANSFER TO ICU. REPORT GIVEN TO GRAPPLE OPERATOR. STAT CXRAY AND ABG ORDERED.
[2017-08-09 14:33] LABS: ABG BASE EXCESS -1.7 mmol/L; ABG OXYGEN SATURATION 85.7 % (92.0-98.5); ABG PCO2 41.3 mmHg (35.0-45.0); ABG PH 7.372 (7.350-7.450); ABG PO2 58.9 mmHg (75.0-100.0); AaDO2 612.8 mmHg; COHb 0.3 % (0.5-1.5); MetHb 0.8 % (0.0-1.5); O2Hb 84.8 % (94.0-97.0); PEEP,BG 0 cm H2O; SITE, ABG Right Radial; VENT MODE, BG AC 22 400; VT, ABG 400 mL
--- NOTE | 2017-08-09 14:45 | NUR ---
PATIENT TRANSFERRED FROM [facility] DUE TO RESPIRATORY DISTRESS. TRACHE CONNECTED TO VENT BY RT. ON 100% FIO2. PATIENT OBTUNDED. NO PURPOSEFUL MOVEMENT ON ALL EXTREMITES. MONITOR SHOWS ST 130'S. SBP>95. CXR DONE AT BEDSIDE.
--- NOTE | 2017-08-09 15:00 | NUR ---
PATIENT SUCTIONED BY RT NORIS. PULMONARY TOILET DONE. KEPT HOB ELEVATED.
--- NOTE | 2017-08-09 15:45 | NUR ---
PATIENT SEEN AND EXAMINED BY DR. TEE AT BEDSIDE-VENT CHANGES ORDERED. SBP>80. MD ORDERED TO GIVE NS 500 ML BOLUS- GIVEN. LEVOPHED BACK UP ORDER GIVEN TO MAINTAIN SBP>90. TO SART ON DIPRIVAN DRIP ONCE BP MORE STABLE. RIGHT CHEST TUBE CHECKED ALSO BY MD-CONNECTED TO CONTINUOUS SUCTION PER MD ORDERS. REPEAT STAT CXR-REPEAT ABG 30 MINUTES POST VENT CHANGES.
--- NOTE | 2017-08-09 15:54 | NUR ---
VENT CHANGES BELLOW MADE PER DR. TEE: PEEP [id number] Addendum: 08/09/17 at 1555 by NORIS DYE RT Amended: Links added.
[2017-08-09] MEDS ORDERED: IV NS 0.9% 500 ML IV ONE (16:00)
--- NOTE | 2017-08-09 16:00 | NUR ---
RECEIVED RESULT FOR LACTIC ACID 5.0. DR. TEE MADE AWARE. START PATIENT ON SEPSIS PROTOCOL PER .
[2017-08-09] MEDS ORDERED: FEE PK DOSING 1 MIN EA MC ONE (16:09)
[2017-08-09] MEDS: MEROPENEM 1 G in IV NS 0.9% 100 ML IV SCH (16:11)
[2017-08-09] MEDS: NOREPINEPHRINE 8 MG in IV D5W 500 ML IV PRN (16:19)
--- NOTE | 2017-08-09 16:20 | NUR ---
SBP 70'S. PATIENT STARTED ON LEVOPHED DRIP PER PROTOCOL TO KEEP SBP > 90.
[2017-08-09 16:46] LABS: ABG BASE EXCESS -4.7 mmol/L; ABG OXYGEN SATURATION 90.4 % (92.0-98.5); ABG PCO2 46.9 mmHg (35.0-45.0); ABG PH 7.284 (7.350-7.450); ABG PO2 74.6 mmHg (75.0-100.0); AaDO2 591.5 mmHg; COHb 0.3 % (0.5-1.5); O2Hb 89.2 % (94.0-97.0); PEEP,BG 12 cm H2O; SITE, ABG Right Radial; VT, ABG 400 mL
[2017-08-09 17:27] LABS: ALANINE AMINOTRANSFERASE 37 U/L (12-78); ALBUMIN 1.7 g/dL (3.4-5.0); ALKALINE PHOSPHATASE 87 U/L (46-116); ASPARTATE AMINOTRANSFERASE 41 U/L (15-37); BILIRUBIN,DIRECT 0.7 mg/dL (0.0-0.2); BILIRUBIN,TOTAL 1.6 mg/dL (0.2-1.0); CALCIUM, SERUM 7.8 mg/dL (8.5-10.1); CARBON DIOXIDE 25 mmol/L (21-32); CHLORIDE 114 mmol/L (98-107); CREATININE 1.1 mg/dL (0.6-1.3); GLUCOSE 93 mg/dL (74-106); POTASSIUM 4.3 mmol/L (3.5-5.1); SODIUM SERUM 148 mmol/L (136-145); TOTAL PROTEIN, SERUM 4.4 g/dL (6.4-8.2); UREA NITROGEN, BLOOD 59 mg/dL (7-18)
[2017-08-09] MEDS: IV NS 0.9% 1,000 ML BAG IV PRN ×2 (17:30→18:38)
--- NOTE | 2017-08-09 17:30 | NUR ---
NS BOLUS PER SEPSIS PROTOCOL. LAB SET ORDERED.
[2017-08-09] MEDS: VANCOMYCIN 0.75 GM in IV D5W 250 ML IV SCH (17:40)
--- NOTE | 2017-08-09 18:50 | NUR ---
2ND LITER ONGOING FOR SEPSIS PROTOCOL. PATIENT REMAINS ON 100% FIO2. STILL TACHYPNEIC. LEVOPHED AT 3 MCG/MIN. TO CONTINUE SEPSIS PROTOCOL .
[2017-08-09] MEDS ORDERED: IV D5/0.45 NACL 1,000 ML IV ONE (21:00)
[2017-08-09] MEDS: ATORVASTATIN 40 MG TABLET PO SCH (21:09)
[2017-08-09] MEDS: QUETIAPINE FUMARATE 100 MG TABLET NG SCH (21:09)
[2017-08-09] MEDS: PROPOFOL 100 ML IV PRN (21:30)
--- NOTE | 2017-08-09 21:30 | NUR ---
MAGAZINE WRITER STARTED DIPRIVAN AT 5 MCG/KG/MIN FOR PTS RESPIRATION SBP HAS SUSTAINED ABOVE 90 FOR THE PAST HOUR. CONTINUE TO MONITOR.
--- NOTE | 2017-08-09 22:30 | NUR ---
AUTOCAD DRAFTSMAN SINCE DIPRIVAN WAS STARTED PT BEGAN TO DESATURATE AND BP DROPPED DESPITE TITRATION OF PRESSOR. DIPRIVAN TITRATED OFF.
[2017-08-10] VITALS (62 sets, daily range): BP systolic 40–120; BP diastolic 20–68
[2017-08-10] MEDS: DEXAMETHASONE SOD PHOSPHATE 4 MG/ML VIAL IV SCH ×3 (00:31→11:47)
[2017-08-10] MEDS: MEROPENEM 1 G in IV NS 0.9% 100 ML IV SCH ×2 (00:31→09:05)
[2017-08-10 04:38] LABS: EOSINOPHILS % (AUTO) 3.2 % (0.0-6.0); LYMPHOCYTES # (AUTO) 0.1 /CMM (0.8-4.8); LYMPHOCYTES % (AUTO) 13.2 % (20.0-44.0); MEAN CORPUSCULAR HEMOGLOBIN 30 PG (26.0-33.0); MEAN CORPUSCULAR HGB CONC 34 g/dl (31.0-36.0); MEAN CORPUSCULAR VOLUME 89 fL (80-96); MONOCYTES % (AUTO) 0.9 % (2.0-12.0); NEUTROPHILS # (AUTO) 0.8 /CMM (1.8-8.9); NEUTROPHILS % (AUTO) 82.7 % (43.0-81.0); RDW COEFFICIENT OF VARIATION 19.6 (11.5-15.0); RED BLOOD CELL COUNT(AUTO) 2.17 MIL/uL (4.5-6.0)
[2017-08-10 04:46] LABS: HEMATOCRIT 19 % (39-51); HEMOGLOBIN 6.6 g/dL (13.5-17.5); PLATELET COUNT (AUTO) 19 /CMM (150-450)
[2017-08-10] MEDS: VANCOMYCIN 0.75 GM in IV D5W 250 ML IV SCH (05:01)
[2017-08-10] MEDS ORDERED: NOREPINEPHRINE 4 MG/4 ML AMPUL IV ONE ×2 (05:02)
[2017-08-10] MEDS: NOREPINEPHRINE 8 MG in IV D5W 500 ML IV PRN (05:03)
[2017-08-10 05:12] LABS: ALANINE AMINOTRANSFERASE 33 U/L (12-78); ALKALINE PHOSPHATASE 56 U/L (46-116); ASPARTATE AMINOTRANSFERASE 61 U/L (15-37); BILIRUBIN,TOTAL 1.5 mg/dL (0.2-1.0); CALCIUM, SERUM 6.9 mg/dL (8.5-10.1); CARBON DIOXIDE 24 mmol/L (21-32); CHLORIDE 113 mmol/L (98-107); CREATININE 0.9 mg/dL (0.6-1.3); GLUCOSE 125 mg/dL (74-106); POTASSIUM 3.7 mmol/L (3.5-5.1); SODIUM SERUM 145 mmol/L (136-145); TOTAL PROTEIN, SERUM 3.6 g/dL (6.4-8.2); UREA NITROGEN, BLOOD 55 mg/dL (7-18)
[2017-08-10] MEDS: FIBERSOURCE HN 1,000 ML BOTTLE GT PRN (05:16)
[2017-08-10 05:17] LABS: ALBUMIN 1.3 g/dL (3.4-5.0)
[2017-08-10] MEDS ORDERED: IV D5/0.45 NACL 1,000 ML IV PRN (05:30)
[2017-08-10 05:42] LABS: D-DIMER 7.82 mg/L(FEU (0.17-0.50); INR 1.41 (0.87-1.13); PROTHROMBIN TIME 14.7 SECS (9.5-12.7)
--- NOTE | 2017-08-10 06:29 | NUR ---
SCREENER OPERATOR RELAYED ABL LABS TO DR ADONIS PARRA ORDERS FOR REPEAT STAT CBC. CALL PLACED TO LAB.
[2017-08-10 07:20] LABS: BASOPHILS % (AUTO) 0.3 % (0.0-2.0); EOSINOPHILS % (AUTO) 1.2 % (0.0-6.0); LYMPHOCYTES # (AUTO) 0.2 /CMM (0.8-4.8); LYMPHOCYTES % (AUTO) 14.3 % (20.0-44.0); MEAN CORPUSCULAR HEMOGLOBIN 30 PG (26.0-33.0); MEAN CORPUSCULAR HGB CONC 33 g/dl (31.0-36.0); MEAN CORPUSCULAR VOLUME 89 fL (80-96); MONOCYTES % (AUTO) 1.1 % (2.0-12.0); NEUTROPHILS # (AUTO) 1.1 /CMM (1.8-8.9); NEUTROPHILS % (AUTO) 83.1 % (43.0-81.0); RDW COEFFICIENT OF VARIATION 19.7 (11.5-15.0); RED BLOOD CELL COUNT(AUTO) 2.27 MIL/uL (4.5-6.0)
[2017-08-10 07:23] LABS: HEMATOCRIT 20 % (39-51); HEMOGLOBIN 6.7 g/dL (13.5-17.5); WHITE BLOOD COUNT (AUTO) 1.4 K/uL (4.3-11.0)
[2017-08-10 07:24] LABS: PLATELET COUNT (AUTO) 19 /CMM (150-450)
--- NOTE | 2017-08-10 07:30 | NUR ---
PATIENT SEEN-WITHDRAWS TO PAIN. NO EYE OPENING NOTED. TRACH TO FULL VENTILATOR SUPPORT. LEVOPHED DRIP ONGOING AT 14 MCG/MIN TO KEEP SBP >90. ST 100'S ON MONITOR. HYPOTHERMIC AT 96. KISHORE AKINS REQUESTED.
--- NOTE | 2017-08-10 09:00 | NUR ---
DR. TEE AT BEDSIDE. MD MADE AWARE OF LAB RESULTS THIS AM. TO GIVE 2 UNITS PRBC FOR H/H 6.03/10.MD AWARE OF HYPOTHERMIA. KISHORE AKINS APPLIED. ATTEMPT TO RESTART DIPRIVAN PER MD. PATIENT ALSO SEEN BY DR. MEDRANO FOR CARDIAC FOLLOW UP-UPDATED WITH PATIENT CONDITION.
[2017-08-10 09:02] LABS: ABG BASE EXCESS -3.3 mmol/L; ABG OXYGEN SATURATION 98.1 % (92.0-98.5); ABG PH 7.408 (7.350-7.450); ABG PO2 180.7 mmHg (75.0-100.0); AaDO2 498.3 mmHg; COHb 0.2 % (0.5-1.5); MetHb 0.7 % (0.0-1.5); O2Hb 97.2 % (94.0-97.0); PEEP,BG 12 cm H2O; SITE, ABG Right Radial; VENT MODE, BG AC 22 400 100% +12; VT, ABG 400 mL
[2017-08-10] MEDS: VALPROIC ACID 250 MG/5 ML UDC GT SCH (09:05)
[2017-08-10] MEDS: PROSOURCE / PROSTAT (PYXIS) 30 ML UDC NG SCH (09:06)
[2017-08-10] MEDS: QUETIAPINE FUMARATE 25 MG TABLET NG SCH (09:06)
[2017-08-10] MEDS: LACTOBACILLUS RHAMNOSUS GG 1 EACH CAP.SPRINK GT SCH (09:06)
[2017-08-10] MEDS: ASPIRIN 81 MG TAB.CHEW PO SCH (09:06)
--- NOTE | 2017-08-10 09:39 | NUR ---
RT NOTE PT FIO2 TITRATED DOWN TO 60% PER PELEG ORDER. RN NOTIFIED. PT REMAINS STABLE. NO DISTRESS NOTED. Addendum: 08/10/17 at 0940 by ROBI CLEVELAND RT Amended: Links added.
[2017-08-10] MEDS: PROPOFOL 100 ML IV PRN (09:58)
[2017-08-10] MEDS ORDERED: MIDAZOLAM HCL 100 MG in IV NS 0.9% 80 ML IV PRN (10:30)
--- NOTE | 2017-08-10 10:30 | NUR ---
PATIENT BECAME TACHYCARDIC AT 140'S POST [address] TEE MADE AWARE . D/C DIPRIVAN AND START PATIENT ON VERSED DRIP PER MD. AWAITING FOR BLOOD TO BE AVAILABLE. FOLLOWED UP WITH LAB.
[2017-08-10 10:34] LABS: BAND % (MANUAL) 12 % (0.0-5.0); LYMPHOCYTES % (MANUAL) 16 % (16-48); MONOCYTES % (MANUAL) 16 % (0-11.0); NEUTROPHILS % (MANUAL) 56 (42-76)
--- NOTE | 2017-08-10 11:10 | NUR ---
SW service consult requested by ICU to attempt to locate next of kin as pt is in critical condition. Pt is an 87 yr. old male diagnosed with Sepsis, Unspecified Organism. SW reviewed pts chart, however was unable to locate any information regarding next of kin and or emergency person to notify. STEPHANIE also contacted Missing Persons, and spoke to Detective Hopkins (ID # [id number]) to see if pt had ever been reported missing. Detective Hopkins reported that pt was not on their missing person database. STEPHANIE, however was able to obtain a telephone # and address [address] [place] [address]. [address] [place], [place], found on pts identifying information. SW contacted telephone number however was unable to speak to anyone. STEPHANIE left a message asking for a call back. STEPHANIE provided pts RN, Aura Morris with an update as to efforts made by STEPHANIE to locate next of kin. STEPHANIE will continue to follow up to ensure all efforts are made in attempting to locate next of kin.
--- NOTE | 2017-08-10 11:10 | NUR ---
PATIENT SEEN AND EXAMINED BY DR. IRBY. MD UPDATED WITH PATIENT STATUS/ CONDITION. MD ORDERED TO GIVE ONLY 1 UNIT OF PRBC AT THIS TIME.
--- NOTE | 2017-08-10 11:15 | NUR ---
ONGOING HELICOPTER PILOT FOLLOW UP. AWARE OF PATIENT CONDITION.
--- NOTE | 2017-08-10 11:30 | NUR ---
PATIENT NOTED ON UNCONTROLLED AFIB 130'S. DR. MANDEL MADE AWARE WITH ORDERS TO START PATIENT ON AMIO DRIP PER PROTOCOL. OKAY TO GIVE WITH PATIENT ON LEVOPHED , SBP 90'S PER MD.
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
--- NOTE | 2017-08-10 12:20 | NUR ---
PATIENT DESATED TO 70'S. PLACED ON 100% FIO2. SBP 70'S. INCREASED LEVOPHED TO 16 MCG/MIN. TO KEEP SBP >90.
--- NOTE | 2017-08-10 12:45 | NUR ---
UNABLE TO START VERSED / AMIO DRIP DUE TO PATIENT SBP 70'S DESPITE LEVOPHED AT 25 MCG/MIN AT THIS TIME.
[2017-08-10] MEDS ORDERED: AMIODARONE 900 MG in IV D5W 482 ML IV PRN (13:00)
[2017-08-10] MEDS ORDERED: AMIODARONE 150 MG in IV D5W 100 ML IV ONE (13:00)
--- NOTE | 2017-08-10 13:00 | NUR ---
PATIENT REMAINS HYPOTENSIVE. MAX OUT ON LEVOPHED AT 30 MCG/MIN. BLOOD PICKED UP FROM BLOOD BANK. PATIENT AFIB CONVERTED TO JUNCTIONAL RHYTHM ST 70'S. PULSE NOTED.
--- NOTE | 2017-08-10 13:02 | NUR ---
RT NOTE PT FI02 PLACED AT 100% DUE TO EPISODE OF DESATURATION. RN AWARE. Addendum: 08/10/17 at 1303 by ROBI CLEVELAND RT Amended: Links added.
[2017-08-10 13:20] LABS: THYROID STIMULATING HORMONE 0.467 uIU/mL (0.358-3.74)
--- NOTE | 2017-08-10 13:20 | NUR ---
PATIENT WENT ASYTOLE. NO PALPABLE PULSES. CARLITO HOLLAND CALLED. CPR STARTED. SEE CODE BLUE SHEET.
--- NOTE | 2017-08-10 14:00 | NUR ---
[facility] CALLED BY QUAN POWELL. .
--- NOTE | 2017-08-10 14:02 | NUR ---
IT QUALITY ANALYST CALLED REBECCA FROM [facility] AND RECEIVED A . PATIENT DOES NOT QUALIFY FOR ORGAN DONATION DUE TO AGE.
--- NOTE | 2017-08-10 14:05 | NUR ---
NO FAMILY PER SOCIAL WORKERS NOTE. POST MORTEM CARE RENDERED.
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
[2017-08-10] MEDS ORDERED: SODIUM BICARBONATE SYR 50 MEQ/50 ML DISP.SYRIN IV ONE (16:30)
[2017-08-10] MEDS ORDERED: EPINEPHRINE (1:10,000) SYRINGE 1 MG/10 ML DISP.SYRIN IVP ONE (16:30)
[2017-08-10] MEDS ORDERED: MEROPENEM 1 G in IV NS 0.9% 100 ML IV SCH (20:00)
== END 2017-08-10 13:49 | disposition expired | DRG 4 ==
LOC: ER 13:17 → ICU 15:32 → TELE-TD 07-31 14:16 → ICU 07-31 21:10 → TELE1 08-04 20:23 → TELE-TD 08-04 20:51 → TELE1 08-06 11:20 → ICU 08-09 14:21
PROVIDERS: ADMIT Internal Medicine; ATTEND Internal Medicine
PROC: 5A1955Z Respiratory Ventilation, Greater than 96 Consecutive Hours (ICD-10-PCS; principal; 2017-07-15)
PROC: 0BH17EZ Insertion of Endotracheal Airway into Trachea, Via Natural or Artificial Opening (ICD-10-PCS; 2017-07-15)
PROC: 02HV33Z Insertion of Infusion Device into Superior Vena Cava, Percutaneous Approach (ICD-10-PCS; 2017-07-16)
PROC: B548ZZA Ultrasonography of Superior Vena Cava, Guidance (ICD-10-PCS; 2017-07-16)
PROC: 0DH63UZ Insertion of Feeding Device into Stomach, Percutaneous Approach (ICD-10-PCS; 2017-07-28)
PROC: 0W9930Z Drainage of Right Pleural Cavity with Drainage Device, Percutaneous Approach (ICD-10-PCS; 2017-07-28)
PROC: 0B110F4 Bypass Trachea to Cutaneous with Tracheostomy Device, Open Approach (ICD-10-PCS; 2017-07-29)
PROC: 30233N1 Transfusion of Nonautologous Red Blood Cells into Peripheral Vein, Percutaneous Approach (ICD-10-PCS; 2017-08-10)
PROC: 5A2204Z Restoration of Cardiac Rhythm, Single (ICD-10-PCS; 2017-08-10)
DX: A41.9 Sepsis, unspecified organism (principal); I21.4 Non-ST elevation (NSTEMI) myocardial infarction; N17.0 Acute kidney failure with tubular necrosis; E43 Unspecified severe protein-calorie malnutrition; J15.6 Pneumonia due to other Gram-negative bacteria; G93.1 Anoxic brain damage, not elsewhere classified; R65.21 Severe sepsis with septic shock; G93.41 Metabolic encephalopathy; R13.10 Dysphagia, unspecified; D61.818 Other pancytopenia; I50.31 Acute diastolic (congestive) heart failure; J96.01 Acute respiratory failure with hypoxia; Z99.11 Dependence on respirator [ventilator] status; E87.0 Hyperosmolality and hypernatremia; E87.2 Acidosis; J93.83 Other pneumothorax; T79.7XXA Traumatic subcutaneous emphysema, initial encounter; Z93.0 Tracheostomy status; Z93.1 Gastrostomy status; F03.90 Unspecified dementia, unspecified severity, without behavioral disturbance, psychotic disturbance, mood disturbance, and anxiety; Z86.73 Personal history of transient ischemic attack (TIA), and cerebral infarction without residual deficits; N40.0 Benign prostatic hyperplasia without lower urinary tract symptoms; Z79.899 Other long term (current) drug therapy; Z79.82 Long term (current) use of aspirin; D63.8 Anemia in other chronic diseases classified elsewhere; F31.9 Bipolar disorder, unspecified; F41.9 Anxiety disorder, unspecified; I11.0 Hypertensive heart disease with heart failure; G47.00 Insomnia, unspecified; I70.0 Atherosclerosis of aorta; J45.909 Unspecified asthma, uncomplicated; K21.9 Gastro-esophageal reflux disease without esophagitis; E66.9 Obesity, unspecified; Z68.23 Body mass index [BMI] 23.0-23.9, adult; D69.6 Thrombocytopenia, unspecified; X58.XXXA Exposure to other specified factors, initial encounter
CPT/HCPCS: 31720; 36415; 36569; 36600; 43246; 70450-TC; 71010-TC; 80048-TC; 80053-TC; 80076-TC; 80164-TC; 80202-TC; 81000-TC; 82040-TC; 82728-TC; 82746; 82803-TC; 82962-TC; 83540-TC; 83605-TC; 83735-TC; 83880; 84100-TC; 84443-TC; 84478-TC; 84484-TC; 85025-TC; 85378-TC; 85385-TC; 85396; 85610-TC; 85730-TC; 86850-TC; 86921-TC; 87040-TC; 87070-TC; 87081-TC; 87086-TC; 87186-TC; 87400; 92950-TC; 93307-TC; 94002-TC; 94003-TC; 94762-TC; 99082-TC; A4216; A4349; A4606; A4623; A6253; A6402; A6403; A7526; C1751; C9113; J0171; J0282; J0330; J0360; J1100; J1170; J1650; J1940; J2060; J2185; J2250; J2270; J2543; J3370; J3490; J7030; J7040; J7050; J7060; J7070; P9016-BL; P9047; Z7610